=== PATIENT | female | born 1935 | race Caucasian/White ===

== ENCOUNTER 2018-07-29 09:44 | Emergency (ER) | payer OTHER, SELFPAY ==
--- NOTE | 2018-07-29 09:45 | ED.UPPEXIN ---
HPI - Extremity Injury (Upper) General Chief Complaint: Extremity Injury, Upper Stated Complaint: FELL, HURT ARM Time Seen by Provider: 07/29/18 09:45 Source: patient Mode of arrival: ambulatory Limitations: no limitations History of Present Illness HPI narrative: Patient is here for evaluation of right wrist and hand injury. Patient states that last evening she was getting out of the pool and tripped over some steps and fell forward catching herself with both hands out. She states that both her risk for hurting last evening but only her right wrist hurts this morning. Did not hit her head. Did have pain with movement of the right wrist while making breakfast this morning. Related Data Home Medications Medication Instructions Recorded Confirmed acetaminophen 325 mg PO PRN PRN #0 09/14/16 07/29/18 oxyquinoline-sod.lauryl sulfat 1 applic VAGINAL DIRECTED #0 02/26/17 07/29/18 [Trimo-De La Cruz Jelly] Calcium 1 dose PO QNOON 07/29/18 07/29/18 Vitamin D3 1 cap PO QNOON 07/29/18 07/29/18 multivitamin 1 tab PO QNOON 07/29/18 07/29/18 Allergies Allergy/AdvReac Type Severity Reaction Status Date / Time No Known Drug Allergies Allergy Verified 07/29/18 10:02 Review of Systems Constitutional Denies fever(s) and Denies headache(s) ENT Ears, Nose, Mouth, and Throat: Denies vertigo and Denies headache(s) Cardiovascular Denies chest pain and Denies dyspnea Respiratory Denies dyspnea Gastrointestinal Gastrointestinal: Denies abdominal pain, Denies nausea and Denies vomiting Musculoskeletal Denies myalgias and Reports arthralgias ( Right wrist) Integumentary/Breasts Denies pruritus and Denies rash Neurologic Denies vertigo and Denies headache(s) Hematologic/Lymphatic Denies easy bleeding and Denies easy bruising [facility] Medical History Healthy adult (Acute) Presence of pessary (Acute) Surgical History No pertinent past surgical history (Acute) Social History Smoking Status: Never smoker Exam Initial Vital Signs Initial Vital Signs: Vital Signs Temperature 97.8 F 07/29/18 09:59 Pulse Rate 64 07/29/18 09:59 Respiratory Rate 12 07/29/18 09:59 Blood Pressure 166/74 H 07/29/18 09:59 Pulse Oximetry 98 07/29/18 09:59 Const General: cooperative, healthy appearing, comfortable, well developed, well groomed and No acute distress Orientation: alert, awake and oriented x3 HENMT Head: normal to inspection and normocephalic Resp Effort & Inspection: normal respiratory effort Skin Lesions: no lesions Rashes: no rashes Neuro Sensory Exam: no sensory deficits noted Extrem Other: left upper extremity unremarkable right shoulder unremarkable right elbow unremarkable patient with some tenderness of the wrist with supination patient able to pronate without pain. Decreased flexion and extension secondary to pain at the right wrist right hand unremarkable No snuffbox tenderness right hand Psych Appearance: grossly normal and well kempt Course Orders Ordered: ED Orders 07/29/18 10:05 XR hand RT min 3V Stat XR wrist RT min 3V Stat Vital Signs - 8 hr 07/29/18 09:59 Temperature 97.8 F Pulse Rate 64 Respiratory Rate 12 Blood Pressure 166/74 H Pulse Oximetry 98 MDM - Extremity Injury (Upper) Imaging Data x-ray wrist: Radiologist's impression: PROCEDURE: XR WRIST RT MIN 3V INDICATIONS: fall on out stretched arm. pain in wrist and hand. TECHNIQUE: 4 views of the wrist were acquired. COMPARISON: [facility], RG, XR WRIST 3V RIGHT, 05/08/2003, 10:45. [facility], CR, XR HAND RT MIN 3V, 07/29/2018, 10:18. FINDINGS: Bones: Deformity seen of the distal radius. However, this is not significantly changed compared to thousand 3. No acute fractures are seen. Degenerative changes are seen throughout, which are most prominent involving the radial aspect of the carpus. Age-appropriate osteopenia is seen. Scaphoid view: No navicular fractures are seen. Soft tissues: No suspicious soft tissue calcifications. IMPRESSION: No acute fractures are seen. There is a remote distal radius fracture seen. If there is snuffbox tenderness (or other clinical suspicion for a fracture not seen on these images) then a repeat examination would be recommended in 10 to 14 days, following splinting. Dictated by: Jamil Patel M.D. on 07/29/2018 at 9:42 Approved by: Jamil Patel M.D. on 07/29/2018 at 9:43 x-ray hand: Radiologist's impression: PROCEDURE: XR HAND RT MIN 3V INDICATIONS: fall on out stretched arm, pain in wrist and hand. TECHNIQUE: 3 views of the hand(s) acquired. COMPARISON: [facility], CR, XR WRIST RT MIN 3V, 07/29/2018, 10:18. [facility], RG, XR WRIST 3V RIGHT, 05/08/2003, 10:45. FINDINGS: Bones: There is stable deformity of the distal radius seen, which is unchanged compared to 2002. No acute fractures or dislocations. Carpal bones are normally aligned. No suspicious bony lesions. Age-appropriate osteopenia and bony degenerative changes are seen. Soft tissues: No suspicious soft tissue calcifications. IMPRESSION: No acute fracture can be seen. Remote fracture of the distal radius. Osteopenia degenerative changes. Dictated by: Jamil Patel M.D. on 07/29/2018 at 9:43 Approved by: Jamil Patel M.D. on 07/29/2018 at 9:44 MDM Narrative Medical decision making narrative: patient is neurovascularly intact. no acute fracture seen on the x-ray per radiologist read. Discussed all this with the patient. Will send home with a removable wrist splint for comfort. Patient was given return precautions. She expressed understanding and agreement with plan. Discharge Plan Departure Patient Disposition: Home Clinical Impression: Right wrist sprain Instructions: DI for Wrist Sprain, How To Perform RICE (Rest, Ice, Compress, Elevate) Activity Restrictions/Additional Instructions: no fractures were seen on the x-rays today. You can use the wrist splint that she were given as needed for comfort. Call your primary care doctor for a follow-up. Return to the emergency department for any new or worsening symptoms Prescriptions: No Action acetaminophen 325 MG tablet 325 mg PO PRN PRN (Reason: pain) Qty: 0 RF: 0 oxyquinoline-sod.lauryl sulfat [Trimo-De La Cruz Jelly] 0.025-0.01 % Gel 1 applic Vaginal DIRECTED Qty: 0 RF: 0 multivitamin Tablet 1 tab PO QNOON RF: 0 Calcium 1 dose PO QNOON RF: 0 Vitamin D3 1 cap PO QNOON RF: 0
[2018-07-29 09:59] VITALS: BP 166/74; PULSE 64; RESP 12; TEMP 36.6; O2SAT 98; BMI 21.9
--- NOTE | 2018-07-29 10:05 | DI.RAD.S_ITS ---
PROCEDURE: XR HAND RT MIN 3V INDICATIONS: fall on out stretched arm, pain in wrist and hand. TECHNIQUE: 3 views of the hand(s) acquired. COMPARISON: [facility], CR, XR WRIST RT MIN 3V, 07/29/2018, 10:18. [facility], RG, XR WRIST 3V RIGHT, 05/08/2003, 10:45. FINDINGS: Bones: There is stable deformity of the distal radius seen, which is unchanged compared to 2002. No acute fractures or dislocations. Carpal bones are normally aligned. No suspicious bony lesions. Age-appropriate osteopenia and bony degenerative changes are seen. Soft tissues: No suspicious soft tissue calcifications. IMPRESSION: No acute fracture can be seen. Remote fracture of the distal radius. Osteopenia degenerative changes. Dictated by: Jamil Patel M.D. on 07/29/2018 at 9:43 Approved by: Jamil Patel M.D. on 07/29/2018 at 9:44
--- NOTE | 2018-07-29 10:05 | DI.RAD.S_ITS ---
PROCEDURE: XR WRIST RT MIN 3V INDICATIONS: fall on out stretched arm. pain in wrist and hand. TECHNIQUE: 4 views of the wrist were acquired. COMPARISON: [facility], RG, XR WRIST 3V RIGHT, 05/08/2003, 10:45. [facility], CR, XR HAND RT MIN 3V, 07/29/2018, 10:18. FINDINGS: Bones: Deformity seen of the distal radius. However, this is not significantly changed compared to thousand 3. No acute fractures are seen. Degenerative changes are seen throughout, which are most prominent involving the radial aspect of the carpus. Age-appropriate osteopenia is seen. Scaphoid view: No navicular fractures are seen. Soft tissues: No suspicious soft tissue calcifications. IMPRESSION: No acute fractures are seen. There is a remote distal radius fracture seen. If there is snuffbox tenderness (or other clinical suspicion for a fracture not seen on these images) then a repeat examination would be recommended in 10 to 14 days, following splinting. Dictated by: Jamil Patel M.D. on 07/29/2018 at 9:42 Approved by: Jamil Patel M.D. on 07/29/2018 at 9:43
[2018-07-29 11:40] VITALS: BP 175/76; PULSE 60; RESP 16; O2SAT 97
== END 2018-07-29 11:41 | disposition home or self-care (01) ==
PROVIDERS: Emergency Provider Emergency Medicine; PCP Internal Medicine
DX: S63.501A Unspecified sprain of right wrist, initial encounter (principal); W01.0XXA Fall on same level from slipping, tripping and stumbling without subsequent striking against object, initial encounter
CPT/HCPCS: 73110; 73130; 99282; 99283

== ENCOUNTER 2018-08-09 10:58 | Oncology outpatient (ONC) | payer OTHER, SELFPAY ==
[2018-08-09 11:58] VITALS: BP 148/69; PULSE 69; RESP 16; TEMP 36.8
[2018-08-09] MEDS: ZOLEDRONIC ACID 5 MG in SODIUM CHLORIDE 0.9% 100 ML 318.75 ML IV (12:00)
== END 2018-08-22 13:25 ==
LOC: ONC 10:58
PROVIDERS: PCP Internal Medicine; Visit Provider Internal Medicine
DX: M81.0 Age-related osteoporosis without current pathological fracture (principal)
CPT/HCPCS: 96374; J3489

== ENCOUNTER → 2019-01-31 13:43 | Outpatient (CLI) | payer OTHER, SELFPAY ==
--- NOTE | 2019-01-31 | DI.MG.S_ITS ---
BILATERAL DIGITAL SCREENING MAMMOGRAM 3D/2D WITH CAD: 01/31/2019 CLINICAL: Routine screening. Comparison is made to exams dated: 12/05/2017 mammogram, 06/17/2015 mammogram, and 09/10/2012 mammogram - [facility]. There are scattered fibroglandular elements in both breasts. Current study was also evaluated with a Computer Aided Detection (CAD) system. There is an asymmetry in the right breast anterior depth lateral region seen on the craniocaudal view only. No other significant masses, calcifications, or other findings are seen in either breast. IMPRESSION: INCOMPLETE: NEEDS ADDITIONAL IMAGING EVALUATION The asymmetry in the right breast is indeterminate. Additional views with possible ultrasound are recommended. This exam was interpreted at Station ID: [id number]. NOTE: For mammograms, a report in lay terms will be sent to the patient. Approximately 15% of breast malignancies will not be visualized mammographically. In the management of a palpable breast mass, a negative mammogram must not discourage biopsy of a clinically suspicious lesion. Electronically Signed By: Cony de/cindy:01/31/2019 16:28:09 letter sent: Additional Imaging Needed ACR BI-RADS Category 0: Incomplete 3340F
== END ==
PROVIDERS: PCP Internal Medicine; Visit Provider Internal Medicine
DX: Z12.31 Encounter for screening mammogram for malignant neoplasm of breast (principal)
CPT/HCPCS: 77063; 77067

== ENCOUNTER → 2019-02-17 08:49 | Outpatient (CLI) | payer OTHER, SELFPAY ==
--- NOTE | 2019-02-17 | DI.US.S_ITS ---
ULTRASOUND OF RIGHT BREAST: 02/17/2019 CLINICAL: Patient returns today to evaluate a focal asymmetry in the right breast. Comparison is made to exams dated: 02/17/2019 mammogram, 01/31/2019 mammogram, 12/05/2017 mammogram, 06/17/2015 mammogram, and 09/10/2012 mammogram - [facility]. Color flow ultrasound of the right breast was performed on the areas of interest. Rasmussen scale images of the real-time examination were reviewed. There is 0.4 cm cyst in the right breast at 10 o'clock middle depth. This cyst displays internal echoes. This likely correlates with mammography findings. IMPRESSION: PROBABLY BENIGN The 0.4 cm cyst in the right breast is consistent with a complicated cyst and is probably benign. A follow-up right mammogram and an ultrasound in 6 months is recommended to demonstrate stability. This exam was interpreted at Station ID: [id number]. Electronically Signed By: Cony de/:02/17/2019 10:08:18 letter sent: Followup Recommended Ultrasound BI-RADS: 3 Probably benign
--- NOTE | 2019-02-17 | DI.MG.S_ITS ---
UNILATERAL RIGHT DIGITAL DIAGNOSTIC MAMMOGRAM 3D/2D WITH ADDITIONAL VIEWS: 02/17/2019 CLINICAL: Additional evaluation requested from prior study. Comparison is made to exams dated: 01/31/2019 mammogram, 12/05/2017 mammogram, and 06/17/2015 mammogram - [facility]. There are scattered fibroglandular elements in right breast. There is an asymmetry in the right breast anterior depth lateral region seen on the craniocaudal view only. This is seen in additional views. No other significant masses or calcifications are seen in the breast. IMPRESSION: INCOMPLETE: NEEDS ADDITIONAL IMAGING EVALUATION The asymmetry in the right breast is indeterminate. A targeted ultrasound of the right breast is recommended and will be performed immediately following this exam. This exam was interpreted at Station ID: [id number]. NOTE: For mammograms, a report in lay terms will be sent to the patient. Approximately 15% of breast malignancies will not be visualized mammographically. In the management of a palpable breast mass, a negative mammogram must not discourage biopsy of a clinically suspicious lesion. Electronically Signed By: Cony Dean M.D. lk/:02/17/2019 10:06:48 ACR BI-RADS Category 0: Incomplete [id number]
== END ==
PROVIDERS: PCP Internal Medicine; Visit Provider Internal Medicine
DX: R92.8 Other abnormal and inconclusive findings on diagnostic imaging of breast (principal); N64.89 Other specified disorders of breast; N60.01 Solitary cyst of right breast
CPT/HCPCS: 76642; 77065; G0279

== ENCOUNTER → 2019-08-19 15:22 | Outpatient (CLI) | payer OTHER, SELFPAY ==
[2019-08-19 16:25] LABS: Blood Urea Nitrogen 16 mg/dL (7-17); Estimated Glomerular Filt Rate > 60.0 mL/min (>60)
== END ==
PROVIDERS: PCP Internal Medicine; Visit Provider Internal Medicine
DX: M81.0 Age-related osteoporosis without current pathological fracture (principal)
CPT/HCPCS: 36415; 82565; 84520

== ENCOUNTER → 2019-09-02 14:08 | Outpatient (CLI) | payer OTHER, SELFPAY ==
--- NOTE | 2019-09-02 | DI.MG.S_ITS ---
UNILATERAL RIGHT DIGITAL DIAGNOSTIC MAMMOGRAM 3D/2D SHORT-TERM FOLLOW-UP: 09/02/2019 CLINICAL: Short term follow up. Comparison is made to exams dated: 02/17/2019 mammogram, 01/31/2019 mammogram, 12/05/2017 mammogram, 02/17/2019 ultrasound, 09/10/2012 mammogram, and 06/17/2015 mammogram - [facility]. There are scattered fibroglandular elements in right breast. There is a stable asymmetry in the right breast anterior depth lateral region seen on the craniocaudal view only. No other significant masses or calcifications are seen in the breast. IMPRESSION: INCOMPLETE: NEEDS ADDITIONAL IMAGING EVALUATION Stable asymmetry in the right breast anterior depth lateral region. A targeted ultrasound of the right breast is recommended and will be performed immediately following this exam. This exam was interpreted at Station ID: [id number]. NOTE: For mammograms, a report in lay terms will be sent to the patient. Approximately 15% of breast malignancies will not be visualized mammographically. In the management of a palpable breast mass, a negative mammogram must not discourage biopsy of a clinically suspicious lesion. Electronically Signed By: Benji Cevallos M.D. slc/:09/02/2019 14:45:14 ACR BI-RADS Category 0: Incomplete [id number]
--- NOTE | 2019-09-02 | DI.US.S_ITS ---
LIMITED ULTRASOUND OF RIGHT BREAST: 09/02/2019 CLINICAL: 6 month follow-up of a complicated cyst in the right breast. Comparison is made to exams dated: 09/02/2019 mammogram, 02/17/2019 ultrasound, 02/17/2019 mammogram, 01/31/2019 mammogram, 12/05/2017 mammogram, and 06/17/2015 mammogram - [facility]. Color flow and real-time ultrasound of the right breast 9-10 o'clock region were performed. Rasmussen scale images of the real-time examination were reviewed. There is a stable 0.4 cm x 0.3 cm x 0.2 cm cyst in the right breast at 9:30 o'clock middle depth 3 cm from the nipple. This cyst is hypoechoic with internal echoes. This likely correlates with mammography findings. Color flow imaging demonstrates that there is no increase in vascularity. IMPRESSION: PROBABLY BENIGN Stable hypoechoic cyst in the right breast is consistent with a complicated cyst and is probably benign. Follow-up mammogram and ultrasound in 6 months is recommended to demonstrate stability. Exam findings were conveyed to the patient by the regional sales trainer. This exam was interpreted at Station ID: [id number]. Electronically Signed By: Benji Cevallos M.D. [facility] [place]/:09/02/2019 15:19:25 letter sent: Followup Recommended Ultrasound BI-RADS: 3 Probably benign
== END ==
PROVIDERS: PCP Internal Medicine; Visit Provider Internal Medicine
DX: R92.8 Other abnormal and inconclusive findings on diagnostic imaging of breast (principal); N60.01 Solitary cyst of right breast
CPT/HCPCS: 76642; 77065; G0279

== ENCOUNTER → 2019-09-08 14:05 | Oncology outpatient (ONC) | payer OTHER, SELFPAY ==
[2019-09-08 14:24] VITALS: BP 150/78; PULSE 80; RESP 20; TEMP 36.4; O2SAT 99
[2019-09-08] MEDS: ZOLEDRONIC ACID 5 MG in SODIUM CHLORIDE 0.9% 100 ML 318.75 ML IV (14:32)
== END ==
LOC: ONC 14:07
PROVIDERS: PCP Internal Medicine; Visit Provider Internal Medicine
DX: M81.0 Age-related osteoporosis without current pathological fracture (principal)
CPT/HCPCS: 96365; J3489

== ENCOUNTER → 2020-07-14 19:33 | Outpatient (ROUT) | payer MEDICARE, SELFPAY ==
[2020-07-14 19:57] LABS: BUN Creatinine Ratio 26.3 (6-22); Blood Urea Nitrogen 15 mg/dL (7-17); Calcium 9.5 mg/dL (8.4-10.2); Carbon Dioxide 33 mmol/L (22-32); Chloride 99 mmol/L (98-107); Cholesterol 252 mg/dL (140-199); Estimated Glomerular Filt Rate > 60.0 mL/min (>60); Glucose 97 mg/dL (80-110); HDL Cholesterol 92 mg/dL (40-60); HEMOLYSIS < 15 (0-50); LDL Cholesterol Calculated 135 mg/dL (<100); Potassium 4.2 mmol/L (3.4-5.1); Sodium 135 mmol/L (137-145); Triglycerides 126 mg/dL (35-150)
== END ==
PROVIDERS: PCP Internal Medicine; Visit Provider Internal Medicine
DX: I10 Essential (primary) hypertension (principal); E78.2 Mixed hyperlipidemia
CPT/HCPCS: 80048; 80061

== ENCOUNTER → 2020-08-04 13:44 | Outpatient (CLI) | payer MEDICARE, SELFPAY | PROVIDERS: PCP Internal Medicine; Referring Provider Internal Medicine; Visit Provider Internal Medicine | DX: M81.0 Age-related osteoporosis without current pathological fracture (principal); Z78.0 Asymptomatic menopausal state | CPT/HCPCS: 77080 ==

== ENCOUNTER → 2022-01-25 15:46 | Outpatient (CLI) | payer OTHER, SELFPAY ==
[2022-01-25 16:22] LABS: Appearance Urine UA CLEAR; Bilirubin Urine UA NEGATIVE (NEGATIVE); Color Urine UA YELLOW; Glucose Urine UA NEGATIVE (Negative); Ketones Urine UA NEGATIVE (NEGATIVE); Leukocyte Esterase Urine UA NEGATIVE (NEGATIVE); Nitrite Urine UA NEGATIVE (Negative); Occult Blood Urine UA NEGATIVE (Negative); Protein Urine UA NEGATIVE (Negative); Urobilinogen Urine UA 0.2 E.U./dL (0.2)
[2022-01-25 16:27] LABS: pH Urine UA 5.5 (4.5-8.0)
[2022-01-25 16:35] LABS: Bacteria Urine Occasional (0-1); Culture Indicated Urine Cult Not Indicated; RBC Urine None Seen (0-5/HPF); Squamous Epithelial Cell Urine 5-10 /HPF (0-5/HPF); WBC Urine 0-1/HPF (0-5/HPF)
== END ==
PROVIDERS: PCP Internal Medicine; Referring Provider Internal Medicine; Visit Provider Internal Medicine
DX: N81.4 Uterovaginal prolapse, unspecified (principal)
CPT/HCPCS: 81001

== ENCOUNTER 2022-06-03 17:05 | Emergency (ER) | payer MEDICARE, SELFPAY ==
[2022-06-03 17:19] VITALS: PULSE 64; RESP 20; TEMP 36.1; O2SAT 96; BMI 21.7
--- NOTE | 2022-06-03 18:39 | ED.FEMALEGU ---
HPI - Female Genitourinary General Chief complaint: Vaginal Bleeding Stated complaint: Vaginal bleeding Time Seen by Provider: 06/03/22 18:31 Source: family Mode of arrival: Ambulatory History of Present Illness HPI Narrative: Ms. Silver is a 87-year-old woman with severe dementia who is accompanied by her here to the emergency department today. He says that over the past couple of years she has been going to the bathroom much more frequently than expected. This has not resulted in any specific diagnosis. She used to use a pessary but has not now for many months. Today he noticed blood in the bathroom and he cannot tell whether this is rectal blood or urinary blood or vaginal blood. He says that when she sits on the toilet she strains as if she is trying to have a bowel movement. The patient herself has severe dementia and is unable to provide any helpful history. shows me a photograph of her perineum taken today. This shows a normal clitoral ge normal area of skin around the urethral meatus. The vaginal opening appears normal. The posterior aspect of the vaginal wall and perhaps part of the rectum seems slightly inflamed but it is hard to tell from the picture. Related Data Home Medications Medication Instructions Recorded Confirmed acetaminophen 325 mg tablet 325 mg PO PRN PRN pain ##0 09/14/16 04/27/22 multivitamin 1 tab PO QNOON 07/29/18 04/27/22 donepezil 10 mg tablet 10 mg PO DAILY 10/31/19 04/27/22 Previous Rx's Medication Instructions Recorded estradiol 0.01% (0.1 mg/gram) 1 g vaginal 3XW vaginal atrophy 02/17/21 vaginal cream #42.5 grams citalopram 20 mg tablet 20 mg PO DAILY #90 tabs 04/27/22 amlodipine 5 mg tablet 5 mg PO DAILY #90 tabs 05/26/22 Allergies Allergy/AdvReac Type Severity Reaction Status Date / Time No Known Drug Allergies Allergy Verified 06/03/22 17:28 Review of Systems Review of Systems Narrative: Review of systems is unobtainable in this profoundly demented woman. Patient History Medical History Alzheimer's dementia (~2014) Chicken pox Depression, recurrent Essential hypertension Fecal incontinence (~2020) Fractures (~1997) Healthy adult Hearing loss (~1950) History of urinary incontinence (~2007) Measles Osteoporosis (~2012) Pessary maintenance Presence of pessary Skin cancer (~2011) Surgical History No pertinent past surgical history Family History Father Pneumonia Brother Cancer Grandfather History of heart disease alcohol intake frequency: 0-2 drinks per day Substance Use Type: does not use Exam Narrative Exam Narrative: GENERAL: Alert, cooperative and in no distress. HEAD: Atraumatic. Normocephalic. EYES: Sclera are clear without icterus. Extraocular movements are full. ENT: No rhinorrhea. Oropharynx is moist. Mouth exam is benign. NECK: Supple. Full range of motion. CARDIOVASCULAR: Normal rate and rhythm without murmur gallop or rub. RESPIRATORY: Clear to auscultation. Breath sounds equal bilaterally. No wheezes, rales, or rhonchi. GASTROINTESTINAL: Abdomen soft, non-tender, nondistended. EXTREMITIES: No edema, full range of motion. No obvious trauma. BACK: Normal inspection, no CVA tenderness. NEURO: Nonfocal examination, normal speech, normal gait. SKIN: No rash or erythema of visible areas PSYCH: Completely disoriented. Needing constant reassurance. Profoundly demented. Initial Vital Signs Initial Vital Signs: Vital Signs Temperature 97 F L 06/03/22 17:19 Pulse Rate 64 06/03/22 17:19 Respiratory Rate 20 06/03/22 17:19 Pulse Oximetry 96 06/03/22 17:19 Oxygen Delivery Method 06/03/22 17:19 Course Orders Ordered: ED Orders 06/03/22 18:41 UA dip and micro [Urinalysis and Microscopic] Stat Vital Signs Vital signs: Vital Signs - 8 hr 06/03/22 17:19 Temperature 97 F L Pulse Rate 64 Respiratory Rate 20 Pulse Oximetry 96 Oxygen Delivery Method Room Air MDM - Female Genitourinary MDM Narrative Medical decision making narrative: The patient is profoundly demented and not completely assessed. In the lobby where I examined her she had a nontender abdomen and appeared well but extremely confused and demented. Her was constantly trying to redirect her and reassure her. They apparently left prior to being discharged. The plan had been to examine her perineum but this did not take place as they left prior to discharge. Discharge Plan Departure Patient Disposition: Left Against Medical Advice Clinical Impression: Female perineal bleeding Prescriptions: No Action acetaminophen 325 MG tablet 325 mg PO PRN PRN (Reason: pain) Qty: 0 amlodipine 5 mg tablet 5 mg PO DAILY Qty: 90 3RF citalopram 20 mg tablet 20 mg PO DAILY Qty: 90 3RF donepezil 10 mg tablet 10 mg PO DAILY estradiol 0.01 % (0.1 mg/gram) cream 1 g VAG 3XW Qty: 42.5 3RF Rx Instructions: Use 1-2x weekly or as often as tolerated multivitamin Tablet 1 tab PO QNOON Referrals: Rafael Flanagan MD [Primary Care Provider] - Stand Alone Forms: Against Medical Advice
== END 2022-06-03 19:07 | disposition left against medical advice (07) ==
PROVIDERS: Emergency Provider Family Medicine Addiction Medicine; PCP Internal Medicine
DX: N90.89 Other specified noninflammatory disorders of vulva and perineum (principal)
CPT/HCPCS: 99281

== ENCOUNTER 2022-11-12 15:54 | Emergency (ER) | payer MEDICARE, SELFPAY ==
[2022-11-12 16:27] VITALS: BP 128/90; PULSE 86; RESP 18; TEMP 36.4; O2SAT 96
[2022-11-12] MEDS: HALOPERIDOL 5 MG/ML VIAL IM (16:36)
--- NOTE | 2022-11-12 16:43 | PC.NURSE ---
Met patient in waiting room with family members, pt yelling and not following direction. Assisted pt with Katina RN to ambulate to Room 12. Pt bent over on stretcher and possible prolapse assessed outside of vaginal area. Large, pink, and moist. While pt was bent over she also had bowel movement onto floor, soft and light brown. Assisted pt with taj care and cleaned hands. Changed brief and assisted pt into gown. Pt eventually agrees to lay in stretcher, pt confused to place, date, and situation.
[2022-11-12 17:22] LABS: Add Manual Diff / Slide Review NO; Basophils Absolute Auto 0 /uL (0-100); Basophils Percent Auto 0.5 % (0-2); Eosinophils Absolute Auto 100 /uL (0-450); Eosinophils Percent Auto 0.8 % (2-4); Hematocrit 40.5 % (36-46); Hemoglobin 13.8 g/dL (12.0-16.0); Lymphocytes Absolute Auto 2700 /uL (1100-4500); Lymphocytes Percent Auto 31.7 % (25-40); Mean Corpuscular HGB Conc 34.1 % (30-36); Mean Corpuscular Hemoglobin 30.6 PG (26-34); Mean Corpuscular Volume 89.7 fL (80-100); Monocytes Absolute Auto 800 /uL (0-900); Monocytes Percent Auto 9.2 % (3-14); Neutrophils Absolute Auto 4900 /uL (1500-7000); Neutrophils Percent Auto 57.8 % (50-75); Platelet Count 245 X10^3/uL (150-400); Red Blood Cell Count 4.52 X10^6/uL (4.0-5.2); Red Cell Distribution Width 13.2 % (11.6-14.8); White Blood Cell Count 8.5 X10^3/uL (4.5-11.0)
[2022-11-12 17:42] LABS: Alanine Aminotransferase 22 IU/L (<35); Albumin 4.2 g/dL (3.5-5.0); Albumin Globulin Ratio 1.4 (1.0-2.8); Alkaline Phosphatase 84 U/L (38-126); Aspartate Aminotransferase 27 IU/L (14-36); Bilirubin Total 0.4 mg/dL (0.2-1.3); Blood Urea Nitrogen 21 mg/dL (7-17); Calcium 9.4 mg/dL (8.4-10.2); Carbon Dioxide 24 mmol/L (22-32); Chloride 105 mmol/L (98-107); Estimated Glomerular Filt Rate > 60 mL/min (>60); Globulin 3.1 g/dL (1.7-4.1); Glucose 142 mg/dL (80-110); HEMOLYSIS < 15 (0-50); Lactate (Lactic Acid) 1.5 mmol/L (0.7-2.1); Potassium 3.7 mmol/L (3.4-5.1); Sodium 138 mmol/L (137-145); Total Protein 7.3 g/dL (6.3-8.2)
[2022-11-12 17:46] VITALS: BP 167/92; RESP 16
--- NOTE | 2022-11-12 17:57 | PC.NURSE ---
Patient calmer than upon arrival, patient awake and nervous. Pt pulls away when nurse attempts vital signs, does not follow directions. Unable to obtain urine yet, Dr. Barrera aware.
[2022-11-12 17:58] LABS: Procalcitonin 0.05 ng/mL (<0.5)
--- NOTE | 2022-11-12 19:00 | ED_ITS ---
HPI - Female Genitourinary <Laura Bruce, - Last Filed: 11/15/22 19:49> General Chief complaint: Urogenital-Female Stated complaint: Prolapsed uterus Time Seen by Provider: 11/12/22 16:27 Mode of arrival: Ambulatory History of Present Illness HPI Narrative: Patient is 87-year-old female history Alzheimer's dementia, hypertension janiya gstanding uterine prolapse presenting today with behavior change. She lives at home with her elderly . Presenting today with irrational behavior. Both and daughter state that she is never acted like this before. She is screaming in the waiting room. She is constantly missing with her uterine prolapse. She frequently gets feces all over it. She does not have any fever. She was brought back to the room and immediately had a bowel movement and needed to be cleaned up. Previous PCP note from October 2022 appears as though there possibly interested in light memory Care. She was previously on quetiapine but it is maybe took her off of that. his trying to get her into long-term memory care however due to her increased irrational behavior he really is not able to take her home like this. This is abnormal behavior for her he is looking for help. Related Data Home Medications Medication Instructions Recorded Confirmed acetaminophen 325 mg tablet 325 mg PO PRN PRN pain ##0 09/14/16 11/03/22 multivitamin 1 tab PO QNOON 07/29/18 11/03/22 donepezil 10 mg tablet 10 mg PO DAILY 10/31/19 11/03/22 tobramycin-dexamethasone 0.3 %-0.1 ophthalmic (eye) TID 08/04/22 11/03/22 % eye ointment Previous Rx's Medication Instructions Recorded estradiol 0.01% (0.1 mg/gram) 1 g vaginal 3XW vaginal atrophy 02/17/21 vaginal cream #42.5 grams citalopram 20 mg tablet 20 mg PO DAILY #90 tabs 04/27/22 amlodipine 5 mg tablet 5 mg PO DAILY #90 tabs 05/26/22 quetiapine 50 mg tablet 50 mg PO BID #180 tabs 11/03/22 cephalexin 500 mg capsule 500 mg PO BID 7 days #14 caps 11/13/22 Allergies Allergy/AdvReac Type Severity Reaction Status Date / Time No Known Drug Allergies Allergy Verified 11/03/22 15:01 <Rory Rob DO - Last Filed: 11/13/22 19:03> Review of Systems ROS Unobtainable: Unobtainable due to mental status/LOC Patient History <Laura Barrera DO - Last Filed: 11/15/22 19:49> Medical History Alzheimer's dementia (~2014) Chicken pox Depression, recurrent Do not resuscitate Essential hypertension Fecal incontinence (~2020) Fractures (~1997) Healthy adult Hearing loss (~1949) History of urinary incontinence (~2007) Measles Medicare annual wellness visit, initial Osteoporosis (~2012) Pessary maintenance Presence of pessary Skin cancer (~2011) Surgical History No pertinent past surgical history Family History Father Pneumonia Brother Cancer Grandfather History of heart disease alcohol intake frequency: 0-2 drinks per day Substance Use Type: does not use Exam <Laura Barrera, DO - Last Filed: 11/15/22 19:49> Initial Vital Signs Initial Vital Signs: Vital Signs Temperature 97.5 F L 11/12/22 16:27 Pulse Rate 86 11/12/22 16:27 Respiratory Rate 18 11/12/22 16:27 Blood Pressure 128/90 11/12/22 16:27 Pulse Oximetry 96 11/12/22 16:27 Oxygen Delivery Method 11/12/22 16:27 GENERAL: Awake alert 87-year-old female now pleasant after Haldol HEENT: Head atraumatic,EOMI, pupils reactive, face symmetric, CARDIOVASCULAR: Regular rate and rhythm without murmurs, rubs or gallops. RESPIRATORY: Breath sounds equal bilaterally, no wheezes rales or rhonchi. EXTREMITIES: Normal range of motion, no clubbing or edema. Neurovascularly intact NEUROLOGICAL: Moves all extremities SKIN: Warm, dry, no laceration, no petechiae, no rashes or lesions. <Rory Rob, DO - Last Filed: 11/13/22 19:03> Initial Vital Signs Initial Vital Signs: Vital Signs Temperature 97.5 F L 11/12/22 16:27 Pulse Rate 86 11/12/22 16:27 Respiratory Rate 18 11/12/22 16:27 Blood Pressure 128/90 11/12/22 16:27 Pulse Oximetry 96 11/12/22 16:27 Oxygen Delivery Method 11/12/22 16:27 <Saba Patiño DO - Last Filed: 11/13/22 19:19> Initial Vital Signs Initial Vital Signs: Vital Signs Temperature 97.5 F L 11/12/22 16:27 Pulse Rate 86 11/12/22 16:27 Respiratory Rate 18 11/12/22 16:27 Blood Pressure 128/90 11/12/22 16:27 Pulse Oximetry 96 11/12/22 16:27 Oxygen Delivery Method 11/12/22 16:27 Course <Laura Barrera, DO - Last Filed: 11/15/22 19:49> Orders Ordered: Discontinued Medications Acetaminophen (Acetaminophen 325 Mg Tablet) 325 mg PO Q6H PRN PRN Reason: Fever/Mild Pain (1-3) Acetaminophen (Acetaminophen 325 Mg Tablet) 650 mg PO NOW ONE Stop: 11/13/22 19:16 Last Admin: 11/13/22 19:19 Dose: 650 mg Documented By: MADDIE Amlodipine Besylate (Amlodipine 5 Mg Tablet) 5 mg PO DAILY [facility] Last Admin: 11/13/22 08:55 Dose: Not Given Documented By: HUE Haloperidol (Haloperidol 5 Mg/Ml Vial) 5 mg IM NOW ONE Stop: 11/12/22 16:30 Last Admin: 11/12/22 16:36 Dose: 5 mg Documented By: LUCI Ceftriaxone Sodium 1,000 mg/ (Sodium Chloride) 100 mls @ 200 mls/hr IV NOW ONE Stop: 11/13/22 05:56 Last Infusion: 11/13/22 07:31 Dose: 0 mls/hr Documented By: Admin: 11/13/22 07:00 Dose: 200 mls/hr Documented By: BS Ceftriaxone Sodium 1,000 mg/ (Sodium Chloride) 100 mls @ 200 mls/hr IV DAILY [facility] Last Infusion: 11/13/22 18:14 Dose: 0 mls/hr Documented By: Admin: 11/13/22 17:20 Dose: 200 mls/hr Documented By: MADDIE Sodium Chloride (Normal Saline 0.9%) 1,000 mls @ 125 mls/hr IV BOLUS ONE Stop: 11/13/22 19:05 Last Infusion: 11/13/22 18:56 Dose: 0 mls/hr Documented By: Admin: 11/13/22 11:21 Dose: 125 mls/hr Documented By: HUE Quetiapine Fumarate (Quetiapine 25 Mg Tablet) 50 mg PO BID [facility] Last Admin: 11/13/22 08:55 Dose: Not Given Documented By: HUE Vital Signs Vital signs: Vital Signs - 8 hr 11/13/22 12:02 11/13/22 18:54 11/13/22 18:54 Temperature 98.0 F Pulse Rate 107 H Respiratory Rate 16 Blood Pressure 164/74 H Pulse Oximetry 95 <Rory Rob, DO - Last Filed: 11/13/22 19:03> Orders Ordered: Discontinued Medications Acetaminophen (Acetaminophen 325 Mg Tablet) 325 mg PO Q6H PRN PRN Reason: Fever/Mild Pain (1-3) Acetaminophen (Acetaminophen 325 Mg Tablet) 650 mg PO NOW ONE Stop: 11/13/22 19:16 Last Admin: 11/13/22 19:19 Dose: 650 mg Documented By: MADDIE Amlodipine Besylate (Amlodipine 5 Mg Tablet) 5 mg PO DAILY [facility] Last Admin: 11/13/22 08:55 Dose: Not Given Documented By: HUE Haloperidol (Haloperidol 5 Mg/Ml Vial) 5 mg IM NOW ONE Stop: 11/12/22 16:30 Last Admin: 11/12/22 16:36 Dose: 5 mg Documented By: LUCI Ceftriaxone Sodium 1,000 mg/ (Sodium Chloride) 100 mls @ 200 mls/hr IV NOW ONE Stop: 11/13/22 05:56 Last Infusion: 11/13/22 07:31 Dose: 0 mls/hr Documented By: Admin: 11/13/22 07:00 Dose: 200 mls/hr Documented By: TITUS Ceftriaxone Sodium 1,000 mg/ (Sodium Chloride) 100 mls @ 200 mls/hr IV DAILY [facility] Last Infusion: 11/13/22 18:14 Dose: 0 mls/hr Documented By: Admin: 11/13/22 17:20 Dose: 200 mls/hr Documented By: MADDIE Sodium Chloride (Normal Saline 0.9%) 1,000 mls @ 125 mls/hr IV BOLUS ONE Stop: 11/13/22 19:05 Last Infusion: 11/13/22 18:56 Dose: 0 mls/hr Documented By: Admin: 11/13/22 11:21 Dose: 125 mls/hr Documented By: HUE Quetiapine Fumarate (Quetiapine 25 Mg Tablet) 50 mg PO BID [facility] Last Admin: 11/13/22 08:55 Dose: Not Given Documented By: HUE Vital Signs Vital signs: Vital Signs - 8 hr 11/13/22 12:02 11/13/22 18:54 11/13/22 18:54 Temperature 98.0 F Pulse Rate 107 H Respiratory Rate 16 Blood Pressure 164/74 H Pulse Oximetry 95 <Saba Patiño, DO - Last Filed: 11/13/22 19:19> Orders Ordered: Discontinued Medications Acetaminophen (Acetaminophen 325 Mg Tablet) 325 mg PO Q6H PRN PRN Reason: Fever/Mild Pain (1-3) Acetaminophen (Acetaminophen 325 Mg Tablet) 650 mg PO NOW ONE Stop: 11/13/22 19:16 Last Admin: 11/13/22 19:19 Dose: 650 mg Documented By: MADDIE Amlodipine Besylate (Amlodipine 5 Mg Tablet) 5 mg PO DAILY [facility] Last Admin: 11/13/22 08:55 Dose: Not Given Documented By: HUE Haloperidol (Haloperidol 5 Mg/Ml Vial) 5 mg IM NOW ONE Stop: 11/12/22 16:30 Last Admin: 11/12/22 16:36 Dose: 5 mg Documented By: LUCI Ceftriaxone Sodium 1,000 mg/ (Sodium Chloride) 100 mls @ 200 mls/hr IV NOW ONE Stop: 11/13/22 05:56 Last Infusion: 11/13/22 07:31 Dose: 0 mls/hr Documented By: Admin: 11/13/22 07:00 Dose: 200 mls/hr Documented By: TITUS Ceftriaxone Sodium 1,000 mg/ (Sodium Chloride) 100 mls @ 200 mls/hr IV DAILY [facility] Last Infusion: 11/13/22 18:14 Dose: 0 mls/hr Documented By: Admin: 11/13/22 17:20 Dose: 200 mls/hr Documented By: MADDIE Sodium Chloride (Normal Saline 0.9%) 1,000 mls @ 125 mls/hr IV BOLUS ONE Stop: 11/13/22 19:05 Last Infusion: 11/13/22 18:56 Dose: 0 mls/hr Documented By: Admin: 11/13/22 11:21 Dose: 125 mls/hr Documented By: HUE Quetiapine Fumarate (Quetiapine 25 Mg Tablet) 50 mg PO BID [facility] Last Admin: 11/13/22 08:55 Dose: Not Given Documented By: HUE Vital Signs Vital signs: Vital Signs - 8 hr 11/13/22 12:02 11/13/22 18:54 11/13/22 18:54 Temperature 98.0 F Pulse Rate 107 H Respiratory Rate 16 Blood Pressure 164/74 H Pulse Oximetry 95 MDM - Female Genitourinary <Laura Barrera DO - Last Filed: 11/15/22 19:49> Lab Data 11/12/22 17:10 11/12/22 17:10 Labs: Lab Results 11/12/22 11/12/22 11/12/22 Range/Units 17:10 17:10 17:10 WBC 8.5 (4.5-11.0) X10^3/uL RBC 4.52 (4.0-5.2) X10^6/uL Hgb 13.8 (12.0-16.0) g/dL Hct 40.5 (36-46) % MCV 89.7 (80-100) fL MCH 30.6 (26-34) PG MCHC 34.1 (30-36) % RDW 13.2 (11.6-14.8) % Plt Count 245 (150-400) X10^3/uL Neut % (Auto) 57.8 (50-75) % Lymph % (Auto) 31.7 (25-40) % [place] % (Auto) 9.2 (3-14) % Eos % (Auto) 0.8 L (2-4) % Baso % (Auto) 0.5 (0-2) % Neut # (Auto) 4900 (5154-2952) /uL Lymph # (Auto) 2700 (6359-4846) /uL [place] # (Auto) 800 (0-900) /uL Eos # (Auto) 100 (0-450) /uL Baso # (Auto) 0 (0-100) /uL Sodium 138 (137-145) mmol/L Potassium 3.7 (3.4-5.1) mmol/L Chloride 105 (98-107) mmol/L Carbon Dioxide 24 (22-32) mmol/L BUN 21 H (7-17) mg/dL Creatinine 0.60 (0.52-1.04) mg/dL Estimated GFR > 60 (>60) mL/min BUN/Creatinine Ratio 35.0 H (6-22) Glucose 142 H (80-110) mg/dL Lactate 1.5 (0.7-2.1) mmol/L Calcium 9.4 (8.4-10.2) mg/dL Total Bilirubin 0.4 (0.2-1.3) mg/dL AST 27 (14-36) IU/L ALT 22 (<35) IU/L Alkaline Phosphatase 84 (38-126) U/L Total Protein 7.3 (6.3-8.2) g/dL Albumin 4.2 (3.5-5.0) g/dL Globulin 3.1 (1.7-4.1) g/dL Albumin/Globulin Ratio 1.4 (1.0-2.8) Procalcitonin 0.05 (<0.5) ng/mL Urine Color Urine Appearance Urine pH (4.5-8.0) Ur Specific [place] (1.000-1.035) Urine Protein (Negative) Urine Glucose (UA) (Negative) g/dL Urine Ketones (NEGATIVE) Urine Occult Blood (Negative) Urine Nitrate (Negative) Urine Bilirubin (NEGATIVE) Urine Urobilinogen (0.2) E.U./dL Ur Leukocyte Esterase (NEGATIVE) Urine RBC (0-5/HPF) Urine WBC (0-5/HPF) Ur Squamous Epith Cells (0-5/HPF) Urine Bacteria (None) Ur Culture Indicated? 11/13/22 11/13/22 11/13/22 Range/Units 03:55 06:39 06:39 WBC 6.4 (4.5-11.0) X10^3/uL RBC 4.20 (4.0-5.2) X10^6/uL Hgb 12.6 (12.0-16.0) g/dL Hct 38.4 (36-46) % MCV 91.3 (80-100) fL MCH 29.9 (26-34) PG MCHC 32.8 (30-36) % RDW 13.2 (11.6-14.8) % Plt Count 233 (150-400) X10^3/uL Neut % (Auto) 53.9 (50-75) % Lymph % (Auto) 32.5 (25-40) % [place] % (Auto) 12.0 (3-14) % Eos % (Auto) 1.4 L (2-4) % Baso % (Auto) 0.2 (0-2) % Neut # (Auto) 3400 (5092-9959) /uL Lymph # (Auto) 2100 (5204-6782) /uL [place] # (Auto) 800 (0-900) /uL Eos # (Auto) 100 (0-450) /uL Baso # (Auto) 0 (0-100) /uL Sodium 139 (137-145) mmol/L Potassium 3.9 (3.4-5.1) mmol/L Chloride 104 (98-107) mmol/L Carbon Dioxide 29 (22-32) mmol/L BUN 18 H (7-17) mg/dL Creatinine 0.49 L (0.52-1.04) mg/dL Estimated GFR > 60 (>60) mL/min BUN/Creatinine Ratio 36.7 H (6-22) Glucose 93 (80-110) mg/dL Lactate (0.7-2.1) mmol/L Calcium 8.5 (8.4-10.2) mg/dL Total Bilirubin 0.7 (0.2-1.3) mg/dL AST 44 H (14-36) IU/L ALT 23 (<35) IU/L Alkaline Phosphatase 64 (38-126) U/L Total Protein 6.3 (6.3-8.2) g/dL Albumin 3.6 (3.5-5.0) g/dL Globulin 2.7 (1.7-4.1) g/dL Albumin/Globulin Ratio 1.3 (1.0-2.8) Procalcitonin (<0.5) ng/mL Urine Color Yellow Urine Appearance Slightly cloudy Urine pH 6.0 (4.5-8.0) Ur Specific [place] >=1.030 H (1.000-1.035) Urine Protein Trace H (Negative) Urine Glucose (UA) Negative (Negative) g/dL Urine Ketones Trace H (NEGATIVE) Urine Occult Blood 1+ H (Negative) Urine Nitrate Positive H (Negative) Urine Bilirubin Negative (NEGATIVE) Urine Urobilinogen 0.2 (0.2) E.U./dL Ur Leukocyte Esterase 1+ H (NEGATIVE) Urine RBC 0-1/hpf (0-5/HPF) Urine WBC 10-30/hpf H (0-5/HPF) Ur Squamous Epith Cells 1-5 /hpf (0-5/HPF) Urine Bacteria Many (>30) H (None) Ur Culture Indicated? Specimen cultured MDM Narrative Medical decision making narrative: 87-year-old female history of Alzheimer's dementia presenting today with worsening behavior. We do need a urinalysis still however he does not have any signs of acute sepsis. It is possible that still UTI is causing some of her increased behavior changes. They are looking into [facility] memory care and further help. Awaiting social work evaluation Signed out to Dr. Rob <Rory Rob DO - Last Filed: 11/13/22 19:03> Lab Data Labs: Lab Results 11/12/22 11/12/22 11/12/22 Range/Units 17:10 17:10 17:10 WBC 8.5 (4.5-11.0) X10^3/uL RBC 4.52 (4.0-5.2) X10^6/uL Hgb 13.8 (12.0-16.0) g/dL Hct 40.5 (36-46) % MCV 89.7 (80-100) fL MCH 30.6 (26-34) PG MCHC 34.1 (30-36) % RDW 13.2 (11.6-14.8) % Plt Count 245 (150-400) X10^3/uL Neut % (Auto) 57.8 (50-75) % Lymph % (Auto) 31.7 (25-40) % [place] % (Auto) 9.2 (3-14) % Eos % (Auto) 0.8 L (2-4) % Baso % (Auto) 0.5 (0-2) % Neut # (Auto) 4900 (6363-2504) /uL Lymph # (Auto) 2700 (9431-0403) /uL [place] # (Auto) 800 (0-900) /uL Eos # (Auto) 100 (0-450) /uL Baso # (Auto) 0 (0-100) /uL Sodium 138 (137-145) mmol/L Potassium 3.7 (3.4-5.1) mmol/L Chloride 105 (98-107) mmol/L Carbon Dioxide 24 (22-32) mmol/L BUN 21 H (7-17) mg/dL Creatinine 0.60 (0.52-1.04) mg/dL Estimated GFR > 60 (>60) mL/min BUN/Creatinine Ratio 35.0 H (6-22) Glucose 142 H (80-110) mg/dL Lactate 1.5 (0.7-2.1) mmol/L Calcium 9.4 (8.4-10.2) mg/dL Total Bilirubin 0.4 (0.2-1.3) mg/dL AST 27 (14-36) IU/L ALT 22 (<35) IU/L Alkaline Phosphatase 84 (38-126) U/L Total Protein 7.3 (6.3-8.2) g/dL Albumin 4.2 (3.5-5.0) g/dL Globulin 3.1 (1.7-4.1) g/dL Albumin/Globulin Ratio 1.4 (1.0-2.8) Procalcitonin 0.05 (<0.5) ng/mL Urine Color Urine Appearance Urine pH (4.5-8.0) Ur Specific [place] (1.000-1.035) Urine Protein (Negative) Urine Glucose (UA) (Negative) g/dL Urine Ketones (NEGATIVE) Urine Occult Blood (Negative) Urine Nitrate (Negative) Urine Bilirubin (NEGATIVE) Urine Urobilinogen (0.2) E.U./dL Ur Leukocyte Esterase (NEGATIVE) Urine RBC (0-5/HPF) Urine WBC (0-5/HPF) Ur Squamous Epith Cells (0-5/HPF) Urine Bacteria (None) Ur Culture Indicated? 11/13/22 11/13/22 11/13/22 Range/Units 03:55 06:39 06:39 WBC 6.4 (4.5-11.0) X10^3/uL RBC 4.20 (4.0-5.2) X10^6/uL Hgb 12.6 (12.0-16.0) g/dL Hct 38.4 (36-46) % MCV 91.3 (80-100) fL MCH 29.9 (26-34) PG MCHC 32.8 (30-36) % RDW 13.2 (11.6-14.8) % Plt Count 233 (150-400) X10^3/uL Neut % (Auto) 53.9 (50-75) % Lymph % (Auto) 32.5 (25-40) % [place] % (Auto) 12.0 (3-14) % Eos % (Auto) 1.4 L (2-4) % Baso % (Auto) 0.2 (0-2) % Neut # (Auto) 3400 (5917-6167) /uL Lymph # (Auto) 2100 (6059-2114) /uL [place] # (Auto) 800 (0-900) /uL Eos # (Auto) 100 (0-450) /uL Baso # (Auto) 0 (0-100) /uL Sodium 139 (137-145) mmol/L Potassium 3.9 (3.4-5.1) mmol/L Chloride 104 (98-107) mmol/L Carbon Dioxide 29 (22-32) mmol/L BUN 18 H (7-17) mg/dL Creatinine 0.49 L (0.52-1.04) mg/dL Estimated GFR > 60 (>60) mL/min BUN/Creatinine Ratio 36.7 H (6-22) Glucose 93 (80-110) mg/dL Lactate (0.7-2.1) mmol/L Calcium 8.5 (8.4-10.2) mg/dL Total Bilirubin 0.7 (0.2-1.3) mg/dL AST 44 H (14-36) IU/L ALT 23 (<35) IU/L Alkaline Phosphatase 64 (38-126) U/L Total Protein 6.3 (6.3-8.2) g/dL Albumin 3.6 (3.5-5.0) g/dL Globulin 2.7 (1.7-4.1) g/dL Albumin/Globulin Ratio 1.3 (1.0-2.8) Procalcitonin (<0.5) ng/mL Urine Color Yellow Urine Appearance Slightly cloudy Urine pH 6.0 (4.5-8.0) Ur Specific [place] >=1.030 H (1.000-1.035) Urine Protein Trace H (Negative) Urine Glucose (UA) Negative (Negative) g/dL Urine Ketones Trace H (NEGATIVE) Urine Occult Blood 1+ H (Negative) Urine Nitrate Positive H (Negative) Urine Bilirubin Negative (NEGATIVE) Urine Urobilinogen 0.2 (0.2) E.U./dL Ur Leukocyte Esterase 1+ H (NEGATIVE) Urine RBC 0-1/hpf (0-5/HPF) Urine WBC 10-30/hpf H (0-5/HPF) Ur Squamous Epith Cells 1-5 /hpf (0-5/HPF) Urine Bacteria Many (>30) H (None) Ur Culture Indicated? Specimen cultured MDM Narrative Medical decision making narrative: 87-year-old female history of Alzheimer's dementia presenting today with worsening behavior. We do need a urinalysis still however he does not have any signs of acute sepsis. It is possible that still UTI is causing some of her increased behavior changes. They are looking into [facility] memory care and further help. Awaiting social work evaluation Signed out to Dr. Rob [[id number]] (Darron) Patient received in sign out from [Bruce]. I have reviewed the clinical course and performed an independent history and physical exam. There is no clear evidence of diagnosis requiring hospitalization, however she is clearly departed from her baseline and would benefit from social work evaluation <Saba Patiño, DO - Last Filed: 11/13/22 19:19> Lab Data Labs: Lab Results 11/12/22 11/12/22 11/12/22 Range/Units 17:10 17:10 17:10 WBC 8.5 (4.5-11.0) X10^3/uL RBC 4.52 (4.0-5.2) X10^6/uL Hgb 13.8 (12.0-16.0) g/dL Hct 40.5 (36-46) % MCV 89.7 (80-100) fL MCH 30.6 (26-34) PG MCHC 34.1 (30-36) % RDW 13.2 (11.6-14.8) % Plt Count 245 (150-400) X10^3/uL Neut % (Auto) 57.8 (50-75) % Lymph % (Auto) 31.7 (25-40) % [place] % (Auto) 9.2 (3-14) % Eos % (Auto) 0.8 L (2-4) % Baso % (Auto) 0.5 (0-2) % Neut # (Auto) 4900 (7886-8970) /uL Lymph # (Auto) 2700 (5636-5186) /uL [place] # (Auto) 800 (0-900) /uL Eos # (Auto) 100 (0-450) /uL Baso # (Auto) 0 (0-100) /uL Sodium 138 (137-145) mmol/L Potassium 3.7 (3.4-5.1) mmol/L Chloride 105 (98-107) mmol/L Carbon Dioxide 24 (22-32) mmol/L BUN 21 H (7-17) mg/dL Creatinine 0.60 (0.52-1.04) mg/dL Estimated GFR > 60 (>60) mL/min BUN/Creatinine Ratio 35.0 H (6-22) Glucose 142 H (80-110) mg/dL Lactate 1.5 (0.7-2.1) mmol/L Calcium 9.4 (8.4-10.2) mg/dL Total Bilirubin 0.4 (0.2-1.3) mg/dL AST 27 (14-36) IU/L ALT 22 (<35) IU/L Alkaline Phosphatase 84 (38-126) U/L Total Protein 7.3 (6.3-8.2) g/dL Albumin 4.2 (3.5-5.0) g/dL Globulin 3.1 (1.7-4.1) g/dL Albumin/Globulin Ratio 1.4 (1.0-2.8) Procalcitonin 0.05 (<0.5) ng/mL Urine Color Urine Appearance Urine pH (4.5-8.0) Ur Specific [place] (1.000-1.035) Urine Protein (Negative) Urine Glucose (UA) (Negative) g/dL Urine Ketones (NEGATIVE) Urine Occult Blood (Negative) Urine Nitrate (Negative) Urine Bilirubin (NEGATIVE) Urine Urobilinogen (0.2) E.U./dL Ur Leukocyte Esterase (NEGATIVE) Urine RBC (0-5/HPF) Urine WBC (0-5/HPF) Ur Squamous Epith Cells (0-5/HPF) Urine Bacteria (None) Ur Culture Indicated? 11/13/22 11/13/22 11/13/22 Range/Units 03:55 06:39 06:39 WBC 6.4 (4.5-11.0) X10^3/uL RBC 4.20 (4.0-5.2) X10^6/uL Hgb 12.6 (12.0-16.0) g/dL Hct 38.4 (36-46) % MCV 91.3 (80-100) fL MCH 29.9 (26-34) PG MCHC 32.8 (30-36) % RDW 13.2 (11.6-14.8) % Plt Count 233 (150-400) X10^3/uL Neut % (Auto) 53.9 (50-75) % Lymph % (Auto) 32.5 (25-40) % [place] % (Auto) 12.0 (3-14) % Eos % (Auto) 1.4 L (2-4) % Baso % (Auto) 0.2 (0-2) % Neut # (Auto) 3400 (8898-2073) /uL Lymph # (Auto) 2100 (4348-6376) /uL [place] # (Auto) 800 (0-900) /uL Eos # (Auto) 100 (0-450) /uL Baso # (Auto) 0 (0-100) /uL Sodium 139 (137-145) mmol/L Potassium 3.9 (3.4-5.1) mmol/L Chloride 104 (98-107) mmol/L Carbon Dioxide 29 (22-32) mmol/L BUN 18 H (7-17) mg/dL Creatinine 0.49 L (0.52-1.04) mg/dL Estimated GFR > 60 (>60) mL/min BUN/Creatinine Ratio 36.7 H (6-22) Glucose 93 (80-110) mg/dL Lactate (0.7-2.1) mmol/L Calcium 8.5 (8.4-10.2) mg/dL Total Bilirubin 0.7 (0.2-1.3) mg/dL AST 44 H (14-36) IU/L ALT 23 (<35) IU/L Alkaline Phosphatase 64 (38-126) U/L Total Protein 6.3 (6.3-8.2) g/dL Albumin 3.6 (3.5-5.0) g/dL Globulin 2.7 (1.7-4.1) g/dL Albumin/Globulin Ratio 1.3 (1.0-2.8) Procalcitonin (<0.5) ng/mL Urine Color Yellow Urine Appearance Slightly cloudy Urine pH 6.0 (4.5-8.0) Ur Specific [place] >=1.030 H (1.000-1.035) Urine Protein Trace H (Negative) Urine Glucose (UA) Negative (Negative) g/dL Urine Ketones Trace H (NEGATIVE) Urine Occult Blood 1+ H (Negative) Urine Nitrate Positive H (Negative) Urine Bilirubin Negative (NEGATIVE) Urine Urobilinogen 0.2 (0.2) E.U./dL Ur Leukocyte Esterase 1+ H (NEGATIVE) Urine RBC 0-1/hpf (0-5/HPF) Urine WBC 10-30/hpf H (0-5/HPF) Ur Squamous Epith Cells 1-5 /hpf (0-5/HPF) Urine Bacteria Many (>30) H (None) Ur Culture Indicated? Specimen cultured MDM Narrative Medical decision making narrative: 87-year-old female history of Alzheimer's dementia presenting today with worsening behavior. We do need a urinalysis still however he does not have any signs of acute sepsis. It is possible that still UTI is causing some of her increased behavior changes. They are looking into [facility] memory care and further help. Awaiting social work evaluation Signed out to Dr. Rob [[id number]] (Darron) Patient received in sign out from [Bruce]. I have reviewed the clinical course and performed an independent history and physical exam. There is no clear evidence of diagnosis requiring hospitalization, however she is clearly departed from her baseline and would benefit from social work evaluation 11/13/22 Mank: Patient signed out to myself. Patient has history of Alzheimer's dementia with worsening behavior does have a UA that shows signs of infection, does not appear toxic. Did receive Rocephin 1 g, patient had received 1 dose of Haldol the day before with no additional medications, ordered daily medications including Rocephin daily. Patient has daily labs ordered. Urine and blood cultures are pending without any results so far. Patient sounds like has significant baseline dementia would likely benefit from placement in a memory care type facility and sounds like patient's family has been seeking this. STOCK[employer]ER involved. 1530: Met with patient's and daughter they note that patient's behavior changed significantly in the last 24 hours. Patient was otherwise doing fairly well they are unclear about why patient was started on Seroquel discussed if she was having behavioral issues they seem fairly adamant did not they thought Dr. Flanagan had just started it but unclear why. We discussed UA, lab findings that she is giving some IV antibiotics they note that patient has uterine prolapse they had not met with Gynecology about pessary but notes she would probably require sedation to have [address] Daley who is on for OBGYN states that she would be happy to have the office reach out to the patient's family to set up pessary sizing and placement under sedation. A shared this with the patient's family as well. Spoke with Dr. Flanagan, patient's primary care provider. He met with the patient's and daughter today. Discussed that they do not wish to continue the Seroquel they are concerned that it maybe contributing to her symptoms. We discussed that likely UTI is part of the issue currently. We will continue to hold Seroquel, discussed Dr. Daley's willingness to follow with the patient in terms of her prolapse but is not actively prolapsed while seated in the bed. Patient's mentation sounds like has been slowly improving here in the department. And that family is in the process of seeking placement and social work's been looking but no forward movem ent at this time. 1840: Discussed with patient family discussed continuing to monitor overnight see her mentation is in the morning. They state there has been some mild improvement but not back to her usual baseline. At this time they feel comfortable returning home with her we did offer to continue to watch her overnight but family ultimately decided to take her home. Have set up to try to have follow-up with Dr. Daley for telemarketing sales representative have pessary placed under procedural sedation. Plan is to stop Seroquel continue patient's regular donepezil, citalopram and amlodipine and will continue with oral antibiotic. She does not have to fill this until tomorrow she is had a dose of IV Rocephin this evening. Discharge Plan Departure Patient Disposition: Home Clinical Impression: Prolapse of female pelvic organs, Acute UTI, Altered mental status Instructions: DI for Urinary Tract Infection (UTI) Activity Restrictions/Additional Instructions: Follow up with your physician for recheck, I would also discussed with them about home health care to see if this is an option that would be helpful. You can reach out to Dr. Daley's office, she is with telemarketing sales representative I spoke with your today. They will try to reach out to the next day or 2 to set up outpatient follow-up for possible procedural sedation for pessary placement for prolapse. If you have not heard from them you can call the contact information below. As discussed continue your donepezil, citalopram and amlodipine daily. Stop the Seroquel or quetiapine. Continue oral antibiotics until completely gone. Prescription sent to [facility] in [place]. Please return for fevers, worsening changes, if you feel Tonia is unsafe cores going to harm yourself or others, abdominal pain, persistent vomiting, difficulty breathing, vaginal or rectal bleeding or other new or concerning changes. Prescriptions: New cephalexin 500 mg capsule 500 mg PO BID 7 Days Qty: 14 0RF No Action acetaminophen 325 MG tablet 325 mg PO PRN PRN (Reason: pain) Qty: 0 amlodipine 5 mg tablet 5 mg PO DAILY Qty: 90 3RF citalopram 20 mg tablet 20 mg PO DAILY Qty: 90 3RF quetiapine 50 mg tablet 50 mg PO BID Qty: 180 3RF donepezil 10 mg tablet 10 mg PO DAILY estradiol 0.01 % (0.1 mg/gram) cream 1 g VAG 3XW Qty: 42.5 3RF Rx Instructions: Use 1-2x weekly or as often as tolerated tobramycin-dexamethasone 0.3-0.1 % ointment ophthalmic (eye) TID multivitamin Tablet 1 tab PO QNOON Referrals: Gi Daley MD [Physician] - Rafael Flanagan MD [Primary Care Provider] - Stand Alone Forms: Patient Portal/API
--- NOTE | 2022-11-12 19:11 | PC.NURSE ---
x2 staff assisted pt to ambulate to bathroom, pt denies need to urinate.
[2022-11-12 21:01] VITALS: BP 157/82; PULSE 66; RESP 18
--- NOTE | 2022-11-12 23:41 | PC.NURSE ---
Addendum entered by Nilam Skinner CNA 11/13/22 04:10: FLOOR COVERINGS INSTALLER note: Patient began to wake up and move in bed. I asked in a quiet tone do you need to go to the bathroom? Patient said yes. Patient is a one person to the [facility] [place] with lots of cueing. Patient is wearing a pull up. Patient requires assistance to pull down her pull up brief. Patient voided 300 mL of latasha/dark yellow urine. Got patient back into bed. Sent urine specimen to the lab. Addendum entered by Nilam Skinner CNA 11/13/22 02:41: FLOOR COVERINGS INSTALLER note: Patient talking in her sleep. She is speaking in an upbeat tone in her sleep. Sleeping on back, occasional snore. Addendum entered by Nilam Skinner CNA 11/13/22 01:19: FLOOR COVERINGS INSTALLER note: Patient resting. Addendum entered by Nilam Skinner CNA 11/13/22 00:12: FLOOR COVERINGS INSTALLER note: Patient resting in bed. Noticed she was mumbling and grabbing for her legs. She kept repeating this is too much. I'm sorry it's too much. I took her blanket off. She was holding her calves. Took off her shoes and lowered her knees down. Raised head of bed. Patient is resting with eyes closed. Original Note: AJ note: Patient in bed. Patient is cooperative in care. Patient is looking up at the ceiling.
[2022-11-13 04:12] LABS: Bilirubin Urine UA NEGATIVE (NEGATIVE); Color Urine UA YELLOW; Glucose Urine UA NEGATIVE (Negative); Ketones Urine UA TRACE (NEGATIVE); Leukocyte Esterase Urine UA 1+ (NEGATIVE); Nitrite Urine UA POSITIVE (Negative); Occult Blood Urine UA 1+ (Negative); Protein Urine UA TRACE (Negative); Specific Gravity Urine UA >=1.030 (1.000-1.035); Urobilinogen Urine UA 0.2 E.U./dL (0.2)
[2022-11-13 04:19] LABS: Appearance Urine UA Slightly Cloudy
[2022-11-13 04:23] LABS: Bacteria Urine Many (>30); Culture Indicated Urine Specimen Cultured; RBC Urine 0-1/HPF (0-5/HPF); Squamous Epithelial Cell Urine 1-5 /HPF (0-5/HPF); WBC Urine 10-30/HPF (0-5/HPF)
[2022-11-13] MEDS: cefTRIAXone 1,000 MG in SODIUM CHLORIDE 0.9% 100 ML 200 MG IV ×2 (07:00→17:20)
[2022-11-13 07:04] VITALS: BP 140/79; PULSE 76; RESP 16; TEMP 36.9; O2SAT 94
[2022-11-13 07:16] LABS: Add Manual Diff / Slide Review NO; Basophils Absolute Auto 0 /uL (0-100); Basophils Percent Auto 0.2 % (0-2); Eosinophils Absolute Auto 100 /uL (0-450); Eosinophils Percent Auto 1.4 % (2-4); Hematocrit 38.4 % (36-46); Hemoglobin 12.6 g/dL (12.0-16.0); Lymphocytes Absolute Auto 2100 /uL (1100-4500); Lymphocytes Percent Auto 32.5 % (25-40); Mean Corpuscular HGB Conc 32.8 % (30-36); Mean Corpuscular Hemoglobin 29.9 PG (26-34); Mean Corpuscular Volume 91.3 fL (80-100); Monocytes Absolute Auto 800 /uL (0-900); Neutrophils Absolute Auto 3400 /uL (1500-7000); Neutrophils Percent Auto 53.9 % (50-75); Platelet Count 233 X10^3/uL (150-400); Red Cell Distribution Width 13.2 % (11.6-14.8); White Blood Cell Count 6.4 X10^3/uL (4.5-11.0)
[2022-11-13 07:21] LABS: Alanine Aminotransferase 23 IU/L (<35); Albumin 3.6 g/dL (3.5-5.0); Albumin Globulin Ratio 1.3 (1.0-2.8); Alkaline Phosphatase 64 U/L (38-126); Aspartate Aminotransferase 44 IU/L (14-36); BUN Creatinine Ratio 36.7 (6-22); Bilirubin Total 0.7 mg/dL (0.2-1.3); Blood Urea Nitrogen 18 mg/dL (7-17); Calcium 8.5 mg/dL (8.4-10.2); Carbon Dioxide 29 mmol/L (22-32); Chloride 104 mmol/L (98-107); Estimated Glomerular Filt Rate > 60 mL/min (>60); Globulin 2.7 g/dL (1.7-4.1); Glucose 93 mg/dL (80-110); HEMOLYSIS < 15 (0-50); Potassium 3.9 mmol/L (3.4-5.1); Sodium 139 mmol/L (137-145); Total Protein 6.3 g/dL (6.3-8.2)
[2022-11-13 08:33] VITALS: O2SAT 95
--- NOTE | 2022-11-13 10:37 | PC.NURSE ---
Encouraging PO intake, pt continues to decline water and food. Pt refusing to take morning medication. Dr. Patiño updated. Attempted to get pt up to the commode, but pt refusing to sit on commode. Re-orienting pt frequently. , Danny updated.
--- NOTE | 2022-11-13 10:45 | PC.NURSE ---
Me and another FIG BAR MACHINE OPERATOR assisted patient to stand at bedside to try and sit on the commode and see if patient needed to be changed. Patient was able to stand, but refused to sit on the commode and did not want a fresh brief. Patients current brief was dry. We assisted patient back into bed.
[2022-11-13] MEDS: SODIUM CHLORIDE 0.9% 1,000 ML 125 ML IV (11:21)
[2022-11-13 12:02] VITALS: RESP 16; TEMP 36.7
--- NOTE | 2022-11-13 12:12 | PC.NURSE ---
Patient has refused food from myself and the nurse. Patient's is here now and has been able to feed patient a few scoops of apple sauce.
--- NOTE | 2022-11-13 16:32 | CM.SWNOTE ---
ED DCP Note Patient is 87 y/o female who presents to ED due to concern for prolapsed uterus and family's concern for patient's AMS, & agitated change in behavior. It is reported that patient had PCP appt with Dr. Flanagan on 11/03/22 and patient was prescribed new rx of quetiapine 50 mg. Patient's PCP is Dr. Flanagan, patient has Medicare and [employer] [facility] medic[facility] insurance. Patient has hx of hearing loss, Alzheimer's Dementia, Prolapse of female pelvic organs. Per EMR patient is DNR status. Patient presents as asleep, per RN, patient is A/Ox0. Present in room is patient's spouse Danny and daughter Michelle. It is reported that patient resides with spouse in [place] and patient's daughter lives far away and is visiting until 11/25/22. Family endorses need for patient's Pessary. With patient's family permission, EMAIL OPERATIONS MANAGER calls PCP office and informs office of patient's presentation in ED and request for OBGYN f/u for Pessary. Spouse reports that patient has a caregiver 2 hours a day for two days a week and spouse has list of caregivers and is trying to find more to allow for daily caregivers. It is reported that patient can ambulate independently and often needs to go to the bathroom every 10-15 minutes. Family reports concern for patient's new behaviors of shaking and agitation in the last 24 hours. It is reported that patient has Alzheimer's at baseline but is able to engage in conversation and communicate her needs. Spouse endorses he is looking into enrolling patient into [facility] memory care. EMAIL OPERATIONS MANAGER discusses options of memory care vs. home with more supports and caregivers. At this time patient is considering what the best option is. Plan: Patient is diagnosed with UTI and is receiving antibiotics. Patient's medical clearance pending ED provider eval and consulting with PCP. Plan likely will be patient to d/c to home upon medical clearance with family. Patient to f/u with OBGYN for referral f/u. EMAIL OPERATIONS MANAGER to f/u with DCP needs, EMAIL OPERATIONS MANAGER to provide senior resource guide. Eva Moreira, INSPECTOR POISING
[2022-11-13 18:54] VITALS: BP 164/74; PULSE 107; O2SAT 95
[2022-11-13] MEDS: ACETAMINOPHEN 325 MG TABLET 650 MG PO (19:19)
== END 2022-11-13 19:21 | disposition home or self-care (01) ==
PROVIDERS: Emergency Medicine; Emergency Provider Emergency Medicine; PCP Internal Medicine
DX: N81.9 Female genital prolapse, unspecified (principal); N39.0 Urinary tract infection, site not specified; R41.82 Altered mental status, unspecified
CPT/HCPCS: 36415; 80053; 81001; 83605; 84145; 85025; 87040; 87077; 87086; 87186; 96361; 96365; 96366; 96372; 99284; J0696; J1630

== ENCOUNTER 2022-11-17 09:20 | Day surgery (SDC) | payer MEDICARE, SELFPAY ==
[2022-11-16 12:02] VITALS: BMI 22.1
[2022-11-17 09:55] VITALS: BP 127/76; PULSE 64; RESP 14; TEMP 36.7; O2SAT 97; BMI 22.1
--- NOTE | 2022-11-17 11:46 | PM.HP.1 ---
History of Present Illness History of Present Illness Date Patient Seen: 11/17/22 Time Patient Seen: 10:45 Chief complaint: PELVIC Narrative: Patient is an 87-year-old with uterine prolapse. She is here for pessary placement. This was unable to be done in an outpatient setting due to the patient's dementia and combativeness. Patient History Medical History (Updated 11/16/22 @ 15:44 by Rafael Flanagan MD) Age-related osteoporosis without current pathological fracture Alzheimer's dementia (~2014) Chicken pox Depression, recurrent Do not resuscitate Essential hypertension Fecal incontinence (~2020) Fractures (~1997) Healthy adult Hearing loss (~1949) History of urinary incontinence (~2007) Measles Pessary maintenance Presence of pessary Skin cancer (~2011) Surgical History No pertinent past surgical history Family & Social History Family History Father Pneumonia Brother Cancer Grandfather History of heart disease Social History: household members spouse Tobacco & Substance use: Smoking Status Never smoker alcohol intake current alcohol intake frequency holiday/special occasion Substance Use Type does not use Meds Home Medications and Allergies Home Medications Medication Instructions Recorded Confirmed Type acetaminophen 325 mg tablet 325 mg PO PRN PRN pain ##0 09/14/16 11/17/22 History multivitamin 1 tab PO QNOON 07/29/18 11/17/22 History donepezil 10 mg tablet 10 mg PO DAILY 10/31/19 11/17/22 History estradiol 0.01% (0.1 mg/gram) 1 g vaginal 3XW vaginal atrophy 02/17/21 11/16/22 Rx vaginal cream #42.5 grams citalopram 20 mg tablet 20 mg PO DAILY #90 tabs 04/27/22 11/17/22 Rx amlodipine 5 mg tablet 5 mg PO DAILY #90 tabs 05/26/22 11/17/22 Rx tobramycin-dexamethasone 0.3 %-0.1 ophthalmic (eye) TID 08/04/22 11/16/22 History % eye ointment amoxicillin 500 mg tablet 500 mg PO TID #21 tabs 11/16/22 11/16/22 Rx Allergies Allergy/AdvReac Type Severity Reaction Status Date / Time haloperidol AdvReac Intermediate agitation Verified 11/16/22 15:29 quetiapine AdvReac Intermediate confusion, Verified 11/16/22 15:07 agitation capsules AdvReac Intermediate unable to Uncoded 11/16/22 15:26 take capsules Exam Vital Signs (past 8 hours): - 11/17/22 09:55 Temperature 98.1 F Pulse Rate 64 Respiratory Rate 14 Blood Pressure 127/76 Pulse Oximetry 97 Oxygen Delivery Method Room Air Oxygen Delivery Method Room Air Narrative Exam Narrative: HEENT: No thyromegaly, no anterior cervical or supraclavicular lymphadenopathy. Lungs:Clear to auscultation bilaterally, no wheezes. Cardiovascular: Regular rate and rhythm, no murmurs, rubs, or gallops. Abdomen: No scars. No hepatosplenomegaly. No masses palpable. External genitalia: Normal Vagina: Third-degree uterine prolapse Cervix: Out of the vagina Bimanual exam: 5 Week size prolapsed uterus. Mobile. Extremities: No edema Assessment & Plan Assessment & Plan narrative: Assessment: 87-year-old with third-degree uterine prolapse Unable to place pessary in an outpatient setting due to patient's dementia and combativeness Plan: Pessary placement under sedation The risks, benefits, and alternatives to the procedure were explained to the patient's and daughter. The risks are minimal. Consent form was signed. Time Spent With Patient Time with patient: less than 30 minutes Critical Care time: I spent a total of [] minutes of critical care time on this patient's care today; this time is exclusive of procedural time.
--- NOTE | 2022-11-17 11:48 | PM.PREOP ---
Pre-operative Note COVID-19 Criteria for continued procedure: Deterioration of the patient's condition or overall health Interval Note History & Physical reviewed/Exam performed by Physician: Yes Changes to H&P: No H&P completed within 30 days and has changed as indicated here:: 11/17/22
--- NOTE | 2022-11-17 12:12 | SUR.OPER ---
patient kept on padded stretcher bed, warm blankets placed. Pillow under head, arms across torso. no prep per Dr. Daley.
[2022-11-17 12:16] VITALS: BP 110/52; PULSE 61; RESP 13; TEMP 36.6; O2SAT 96
--- NOTE | 2022-11-17 12:16 | P.OP_ITS ---
Operative Date/Time/Diagnoses Date of procedure: 11/17/22 Time of procedure: 12:16 Pre-op diagnosis: Uterine prolapse Unable to place pessary in an outpatient setting due to patient's dementia Post-op diagnosis: same Procedure & Clinicians Procedure: Procedures Operation Date: 11/17/22 10:45 Actual Procedure Side Surgeon p Pessary Insertion Not Applicable Gi Daley MD Indications: Uterine prolapse Unable to place pessary in an outpatient setting due to patient's dementia Surgeon: Gi Daley Anesthesia Type: Sedation Operative Notes Findings: Third-degree uterine prolapse Oliver of the vagina without ulceration or irritation Closure Type: not applicable Specimen(s): none Estimated blood loss (mL): 0 Blood products transfused: none Procedure in detail: Informed consent was obtained from the patient's [id number] for healthcare which is her . She was taken to the operating room where she was left on the gurney. IV sedation was administered. The patient was frog- legged on the gurney. The # 4 ring with support pessary (which was brought in by the family), was placed without difficulty. The patient tolerated this well. She was taken to recovery in stable condition. Complications: none Post-operative Condition: stable Disposition: PACU Plan for aftercare: Home after recovery
[2022-11-17 12:21] VITALS: BP 114/56; PULSE 65; RESP 12; O2SAT 96
[2022-11-17 12:26] VITALS: BP 125/61; PULSE 61; RESP 11; O2SAT 97
[2022-11-17 12:30] VITALS: BP 131/65; PULSE 68; RESP 14; TEMP 36; O2SAT 97
[2022-11-17 12:32] VITALS: BP 125/63; PULSE 72; O2SAT 97
--- NOTE | 2022-11-17 12:56 | SUR.PHASEII ---
Patient grew angry and upset during IV removal. Family present. She was reassured as able and she did calm quickly. Dressed with assistance.
== END 2022-11-17 12:44 | disposition home or self-care (01) ==
PROVIDERS: PCP Internal Medicine; Referring Provider Obstetrics & Gynecology; Visit Provider Obstetrics & Gynecology
PROC: (CPT 57160; principal; 2022-11-17 10:45)
DX: N81.3 Complete uterovaginal prolapse (principal); F03.911 Unspecified dementia, unspecified severity, with agitation
CPT/HCPCS: 57160; J2704

== ENCOUNTER → 2022-12-22 12:05 | Outpatient (CLI) | payer MEDICARE, SELFPAY ==
[2022-12-26 15:57] LABS: C difficie Toxins A and B, EIA Negative (Negative)
== END ==
PROVIDERS: PCP Internal Medicine; Referring Provider Internal Medicine; Visit Provider Internal Medicine
DX: R15.9 Full incontinence of feces (principal)
CPT/HCPCS: 87324

== ENCOUNTER → 2023-02-01 14:24 | Outpatient (ROUT) | payer MEDICARE, SELFPAY ==
[2023-02-01 15:51] LABS: Adenovirus F 40/41 Not Detected (Not Detect); Astrovirus Not Detected (Not Detect); Campylobacter Not Detected (Not Detect); Clostridium difficile toxin AB Not Detected (Not Detect); Cryptosporidium Not Detected (Not Detect); Cyclospora cayetanensis Not Detected (Not Detect); Entamoeba histolytica Not Detected (Not Detect); Enteroaggregative E.coli Not Detected (Not Detect); Enteropathogenic E.coli Not Detected (Not Detect); Enterotoxigenic E.coli It/st Not Detected (Not Detect); Giardia lamblia Not Detected (Not Detect); Norovirus GI/GII Not Detected (Not Detect); Plesiomonsa shigelloides Not Detected (Not Detect); Rotavirus A Not Detected (Not Detect); Salmonella Not Detected (Not Detect); Sapovirus Not Detected (Not Detect); Shiga-like toxin-prod E.coli Not Detected (Not Detect); Shigella/Enteroinvasive E.coli Not Detected (Not Detect); Vibrio Not Detected (Not Detect); Vibrio cholerae Not Detected (Not Detect); Yersinia enterocolitica Not Detected (Not Detect)
== END ==
PROVIDERS: PCP Internal Medicine; Visit Provider Nurse Practitioner Family
DX: R19.7 Diarrhea, unspecified (principal)
CPT/HCPCS: 87507

== ENCOUNTER → 2023-02-20 12:04 | Outpatient (CLI) | payer MEDICARE, SELFPAY ==
[2023-02-20 13:01] LABS: Add Manual Diff / Slide Review NO; Basophils Absolute Auto 0 /uL (0-100); Basophils Percent Auto 0.4 % (0-2); Eosinophils Absolute Auto 100 /uL (0-450); Eosinophils Percent Auto 1.8 % (2-4); Hematocrit 37.1 % (36-46); Hemoglobin 12.4 g/dL (12.0-16.0); Lymphocytes Absolute Auto 1800 /uL (1100-4500); Lymphocytes Percent Auto 27.5 % (25-40); Mean Corpuscular HGB Conc 33.4 % (30-36); Monocytes Absolute Auto 500 /uL (0-900); Monocytes Percent Auto 7.3 % (3-14); Neutrophils Absolute Auto 4100 /uL (1500-7000); Platelet Count 297 X10^3/uL (150-400); Red Blood Cell Count 4.13 X10^6/uL (4.0-5.2); Red Cell Distribution Width 13.1 % (11.6-14.8); White Blood Cell Count 6.6 X10^3/uL (4.5-11.0)
[2023-02-20 13:41] LABS: Alanine Aminotransferase 20 IU/L (<35); Albumin 3.7 g/dL (3.5-5.0); Albumin Globulin Ratio 1.4 (1.0-2.8); Alkaline Phosphatase 75 U/L (38-126); Aspartate Aminotransferase 22 IU/L (14-36); BUN Creatinine Ratio 35.6 (6-22); Bilirubin Total 0.3 mg/dL (0.2-1.3); Blood Urea Nitrogen 21 mg/dL (7-17); Calcium 9.1 mg/dL (8.4-10.2); Carbon Dioxide 31 mmol/L (22-32); Chloride 101 mmol/L (98-107); Estimated Glomerular Filt Rate > 60 mL/min (>60); Globulin 2.7 g/dL (1.7-4.1); Glucose 96 mg/dL (80-110); HEMOLYSIS < 15 (0-50); Potassium 4.3 mmol/L (3.4-5.1); Sodium 137 mmol/L (137-145); Total Protein 6.4 g/dL (6.3-8.2)
[2023-02-20 14:07] LABS: Thyroid Stimulating Hormone 1.54 uIU/mL (0.47-4.68)
[2023-02-20 14:22] LABS: Vitamin B12 490 pg/mL (239-931)
== END ==
PROVIDERS: PCP Nurse Practitioner Family; Referring Provider Nurse Practitioner Family; Visit Provider Nurse Practitioner Family
DX: F03.90 Unspecified dementia, unspecified severity, without behavioral disturbance, psychotic disturbance, mood disturbance, and anxiety (principal); R19.7 Diarrhea, unspecified; I10 Essential (primary) hypertension
CPT/HCPCS: 36415; 80053; 82607; 84443; 85025

== ENCOUNTER → 2023-03-19 15:23 | Outpatient (ROUT) | payer MEDICARE, SELFPAY ==
[2023-03-19 15:30] LABS: Appearance Urine UA CLOUDY; Bilirubin Urine UA NEGATIVE (NEGATIVE); Color Urine UA YELLOW; Glucose Urine UA NEGATIVE (Negative); Ketones Urine UA NEGATIVE (NEGATIVE); Leukocyte Esterase Urine UA 3+ (NEGATIVE); Nitrite Urine UA NEGATIVE (Negative); Occult Blood Urine UA NEGATIVE (Negative); Protein Urine UA TRACE (Negative); Urobilinogen Urine UA 0.2 E.U./dL (0.2)
[2023-03-19 16:32] LABS: Bacteria Urine Few (2-10); Culture Indicated Urine Specimen Cultured; RBC Urine 0-1/HPF (0-5/HPF); Squamous Epithelial Cell Urine 0-1 /HPF (0-5/HPF); Transitional Epi Cells Urine 1-5/HPF (0-5/HPF); WBC Urine >100/HPF (0-5/HPF)
== END ==
PROVIDERS: PCP Nurse Practitioner Family; Visit Provider Nurse Practitioner Family
DX: R82.998 Other abnormal findings in urine (principal); R53.83 Other fatigue; R41.0 Disorientation, unspecified
CPT/HCPCS: 81001; 87077; 87086; 87186

== ENCOUNTER → 2023-04-26 12:58 | Outpatient (ROUT) | payer MEDICARE, SELFPAY ==
[2023-04-26 13:13] LABS: Appearance Urine UA SL CLOUDY; Bilirubin Urine UA NEGATIVE (NEGATIVE); Color Urine UA YELLOW; Glucose Urine UA NEGATIVE (Negative); Ketones Urine UA NEGATIVE (NEGATIVE); Leukocyte Esterase Urine UA 2+ (NEGATIVE); Nitrite Urine UA NEGATIVE (Negative); Occult Blood Urine UA NEGATIVE (Negative); Protein Urine UA NEGATIVE (Negative); Urobilinogen Urine UA 0.2 E.U./dL (0.2)
[2023-04-26 13:44] LABS: Bacteria Urine Occasional (0-1); Culture Indicated Urine Specimen Cultured; Other Crystals Urine Moderate Amorphous; RBC Urine None Seen (0-5/HPF); Squamous Epithelial Cell Urine None Seen (0-5/HPF); WBC Urine 10-30/HPF (0-5/HPF); pH Urine UA 8.5 (4.5-8.0)
== END ==
PROVIDERS: Visit Provider Nurse Practitioner Family
DX: R30.0 Dysuria (principal); R82.90 Unspecified abnormal findings in urine; R45.1 Restlessness and agitation
CPT/HCPCS: 81001; 87086

== ENCOUNTER 2023-05-17 08:09 | Day surgery (SDC) | payer MEDICARE, SELFPAY ==
--- NOTE | 2023-05-17 07:53 | P.HPOB_ITS ---
History of Present Illness History of Present Illness Reason for admission: other (Remove, clean, and replace pessary) Narrative: Tonia Ariza is a 88 year old female with dementia, who presents for a pessary removal, cleaning, and replacement. Patient has dementia and is in a care facility. She would not allow me to check pessary in the office. [facility] Medical History (Updated 05/14/23 @ 12:07 by Gi Daley MD) Age-related osteoporosis without current pathological fracture Alzheimer's dementia (~2014) Chicken pox Depression, recurrent Do not resuscitate Essential hypertension Fecal incontinence (~2020) Fractures (~1997) Healthy adult Hearing loss (~1949) History of urinary incontinence (~2007) Insomnia Measles Pessary maintenance Presence of pessary Skin cancer (~2011) Surgical History (System 04/27/23 @ 12:38 by Chivo Hobson) No pertinent past surgical history Family History Father Pneumonia Brother Cancer Grandfather History of heart disease Social History (System 04/27/23 @ 12:38 by Chivo Hobson) household members: spouse Smoking Status: Never smoker alcohol intake: current Meds Home Medications and Allergies Home Medications Medication Instructions Recorded Confirmed Type acetaminophen 325 mg tablet 325 mg PO PRN PRN pain ##0 09/14/16 05/17/23 History multivitamin 1 tab PO QNOON 07/29/18 04/24/23 History donepezil 10 mg tablet 10 mg PO DAILY 10/31/19 05/17/23 History estradiol 0.01% (0.1 mg/gram) 1 g vaginal 3XW vaginal atrophy 02/17/21 04/24/23 Rx vaginal cream #42.5 grams amlodipine 5 mg tablet 5 mg PO DAILY #90 tabs 05/26/22 05/17/23 Rx tobramycin-dexamethasone 0.3 %-0.1 ophthalmic (eye) TID 08/04/22 04/24/23 History % eye ointment amoxicillin 500 mg tablet 500 mg PO TID #21 tabs 11/16/22 05/17/23 Rx Disabled Parking Permit 1 ea Not Applicable DAILY #1 ea 11/17/22 04/24/23 Rx trazodone 50 mg tablet 25 mg PO BEDTIME PRN sleep #60 tabs 12/08/22 05/17/23 Rx Allergies Allergy/AdvReac Type Severity Reaction Status Date / Time haloperidol AdvReac Intermediate agitation Verified 05/17/23 08:43 quetiapine AdvReac Intermediate confusion, Verified 05/17/23 08:43 agitation capsules AdvReac Intermediate unable to Uncoded 05/17/23 08:43 take capsules Exam Narrative Exam Narrative: Generally: A frail elderly female, no acute distress HEENT: No thyromegaly, no anterior cervical or supraclavicular lymphadenopathy. Lungs:Clear to auscultation bilaterally, no wheezes. Cardiovascular: Regular rate and rhythm, no murmurs, rubs, or gallops. Abdomen: No scars. No hepatosplenomegaly. No masses palpable. External genitalia: Deferred Vagina: Deferred Cervix: Deferred Bimanual exam: Deferred Extremities: No edema Assessment & Plan Assessment & Plan narrative: Assessment: 88 year old with pelvic relaxation, using a pessary Unable to examine, remove and clean in office due to dementia Plan: Remove, clean and replace pessary The risks, benefits, and alternatives to the procedure were explained to the . The risks are minimal. He understands and agrees to proceed. Time Spent With Patient Time with patient: less than 30 minutes
[2023-05-17 08:29] VITALS: BP 114/69; PULSE 57; RESP 16; TEMP 36.3; O2SAT 98; BMI 20.9
[2023-05-17] MEDS: LACTATED RINGERS 1,000 ML 100 ML IV (09:18)
--- NOTE | 2023-05-17 09:38 | PM.PREOP ---
Pre-operative Note COVID-19 Criteria for continued procedure: Deterioration of the patient's condition or overall health Interval Note History & Physical reviewed/Exam performed by Physician: Yes Changes to H&P: No H&P completed within 30 days and has changed as indicated here:: 05/17/23
--- NOTE | 2023-05-17 10:03 | SUR.OPER ---
Lithotomy on padded OR bed, head on pillow, arms secured on padded arm boards at <90 degrees abduction. Legs secured in padded yellow fins stirrups.
[2023-05-17 10:04] VITALS: BP 106/63; PULSE 56; RESP 12; TEMP 36.7; O2SAT 97
--- NOTE | 2023-05-17 10:09 | PM.GYNOP.1 ---
Operative Date/Time/Diagnoses Date of procedure: 05/17/23 Time of procedure: 10:09 Pre-op diagnosis: Pessary in place Severe dementia, not able to examined in the office Post-op diagnosis: same Procedure & Clinicians Procedure: Procedures Operation Date: 05/17/23 09:30 Actual Procedure Side Surgeon p Pessary removal, cleaning & replacement Gi Daley MD Indications: Pessary in place Severe dementia Unable to remove pessary in the office Surgeon: Gi Daley Anesthesia Type: Sedation Operative Notes Findings: #4 ring with support pessary in place No ulcerations or irritation of the vaginal granados Closure Type: not applicable Specimen(s): none Estimated blood loss (mL): 0 Blood products transfused: none Procedure in detail: Informed consent was obtained from the patient's and power of family law attorney for healthcare. The patient was taken to the operating room where she was placed in the dorsal supine position. After adequate sedation was achieved, she was placed in the dorsal lithotomy position. A time-out was performed. The # 4 ring pessary with support was removed and cleaned. The vagina was inspected and there were no ulcerations or irritation. The # 4 ring with support was replaced. The patient tolerated the procedure well and was taken to PACU in stable condition. Complications: none Post-operative Condition: stable Disposition: PACU Plan for aftercare: Home after recovery
[2023-05-17 10:10] VITALS: BP 114/63; PULSE 57; RESP 13; TEMP 36.4; O2SAT 99
== END 2023-05-17 10:38 | disposition home or self-care (01) ==
PROVIDERS: PCP Nurse Practitioner Family; Referring Provider Obstetrics & Gynecology; Visit Provider Obstetrics & Gynecology
PROC: (CPT 57410; principal; 2023-05-17 09:30)
DX: Z46.6 Encounter for fitting and adjustment of urinary device (principal); N81.89 Other female genital prolapse; F03.90 Unspecified dementia, unspecified severity, without behavioral disturbance, psychotic disturbance, mood disturbance, and anxiety
CPT/HCPCS: 57160; J1885; J2704

== ENCOUNTER → 2023-06-01 16:15 | Outpatient (CLI) | payer MEDICARE, SELFPAY ==
--- NOTE | 2023-06-01 | DI.RAD.S_ITS ---
PROCEDURE: XR KNEE LT 1TO2V INDICATIONS: PAIN IN KNEE TECHNIQUE: 3 views of the knee were acquired. COMPARISON: [facility], CR, KNEE 3V LEFT, 05/24/2015, 14:05. [facility], CR, KNEE 3V RIGHT, 03/17/2008, 9:22. MR, KNEE WITH CONTRAST, 06/22/2017, 14:39. CR, KNEE SERIES RT, 05/08/2017, 12:10. FINDINGS: Bones: No fractures or dislocations. No suspicious bony lesions. Moderate narrowing of the medial femoral tibial joint and mild tricompartmental periarticular osteophyte formation. Soft tissues: Moderate joint effusion. No suspicious soft tissue calcifications. IMPRESSION: Mild tricompartmental knee joint degeneration, most notably involving the medial femorotibial joint. Dictated by: Chad ROSAS Interpreted: Arturo Pedro MD on 06/01/2023 at 16:53 Transcribed by: JUAN RAMON on 06/01/2023 at 16:54 Approved by: Arturo Pedro M.D. on 06/01/2023 at 17:04
== END ==
PROVIDERS: PCP Nurse Practitioner Family; Referring Provider Nurse Practitioner Family; Visit Provider Nurse Practitioner Family
DX: M25.462 Effusion, left knee (principal); M17.12 Unilateral primary osteoarthritis, left knee
CPT/HCPCS: 73560

== ENCOUNTER → 2023-09-27 18:14 | Outpatient (ROUT) | payer MEDICARE, SELFPAY ==
[2023-09-27 19:01] LABS: Appearance Urine UA CLOUDY; Bilirubin Urine UA NEGATIVE (NEGATIVE); Color Urine UA YELLOW; Glucose Urine UA NEGATIVE (Negative); Ketones Urine UA NEGATIVE (NEGATIVE); Leukocyte Esterase Urine UA TRACE (NEGATIVE); Nitrite Urine UA POSITIVE (Negative); Occult Blood Urine UA TRACE-INTACT (Negative); Protein Urine UA TRACE (Negative); Specific Gravity Urine UA >=1.030 (1.000-1.035); Urobilinogen Urine UA 0.2 E.U./dL (0.2)
[2023-09-27 19:03] LABS: pH Urine UA 5.5 (4.5-8.0)
[2023-09-27 19:35] LABS: Bacteria Urine Many (>30); Calcium Oxalate Crystals Urine Few; Culture Indicated Urine Specimen Cultured; RBC Urine 0-1/HPF (0-5/HPF); Squamous Epithelial Cell Urine 1-5 /HPF (0-5/HPF); WBC Urine 10-30/HPF (0-5/HPF)
== END ==
PROVIDERS: PCP Nurse Practitioner Family; Visit Provider Nurse Practitioner Family
DX: R82.998 Other abnormal findings in urine (principal); R80.1 Persistent proteinuria, unspecified
CPT/HCPCS: 81001; 87077; 87086; 87186

== ENCOUNTER 2023-11-26 10:05 | Day surgery (SDC) | payer MEDICARE, SELFPAY ==
[2023-11-26] VITALS (8 sets, daily range): BP systolic 97–149; BP diastolic 47–84; PULSE 45–59; RESP 10–16; TEMP 35.8–36.2; O2SAT 94–98; BMI 21.0
--- NOTE | 2023-11-26 11:03 | PM.GYNHP.1 ---
History of Present Illness History of Present Illness Reason for admission: pelvic prolapse Narrative: Tonia Ariza is a 88 year old female 2 para 1 with third-degree uterine prolapse This has been managed with a pessary, but due to patient's increasing memory issues, managing the pessary as an outpatient has become difficult. She has gone to the operating room twice to change the pessary. She is here for a colpocleisis for definitive management. [facility] Medical History (Updated 05/14/23 @ 12:07 by Gi Daley MD) Insomnia Age-related osteoporosis without current pathological fracture Do not resuscitate Fractures (~1997) Measles Chicken pox Hearing loss (~1949) History of urinary incontinence (~2007) Fecal incontinence (~2020) Skin cancer (~2011) Depression, recurrent Essential hypertension Alzheimer's dementia (~2014) Pessary maintenance Presence of pessary Healthy adult Surgical History (System 04/27/23 @ 12:38 by Chivo Hobson) No pertinent past surgical history Family History Father Pneumonia Brother Cancer Grandfather History of heart disease Social History (System 04/27/23 @ 12:38 by Chivo Hobson) household members: spouse Smoking Status: Never smoker alcohol intake: current Meds Home Medications and Allergies Home Medications Medication Instructions Recorded Confirmed Type multivitamin 1 tab PO QNOON 07/29/18 04/24/23 History Disabled Parking Permit 1 ea Not Applicable DAILY #1 ea 11/17/22 04/24/23 Rx trazodone 50 mg tablet 25 mg (1/2 x 50 mg) PO BEDTIME PRN 12/08/22 11/26/23 Rx sleep #60 tabs docusate sodium 100 mg capsule 100 mg PO DAILY 11/23/23 11/23/23 History hydrocodone 5 mg-acetaminophen 325 1 tab PO Q4H PRN Pain, Moderate 11/23/23 11/26/23 History mg tablet paroxetine HCl 10 mg tablet 20 mg PO DAILY 11/23/23 11/23/23 History psyllium husk (with sugar) 2 gram 2 wafer PO DAILY 11/23/23 11/23/23 History oral wafer (Metamucil Fiber Thin) Allergies Allergy/AdvReac Type Severity Reaction Status Date / Time haloperidol AdvReac Intermediate agitation Verified 05/17/23 08:43 quetiapine AdvReac Intermediate confusion, Verified 05/17/23 08:43 agitation capsules AdvReac Intermediate unable to Uncoded 05/17/23 08:43 take capsules Exam Narrative Exam Narrative: Generally: Frail elderly woman, moderately agitated HEENT: No thyromegaly, no anterior cervical or supraclavicular lymphadenopathy. Lungs:Clear to auscultation bilaterally, no wheezes. Cardiovascular: Regular rate and rhythm, no murmurs, rubs, or gallops. Abdomen: No scars. No hepatosplenomegaly. No masses palpable. External genitalia: Deferred Vagina: Deferred Cervix: Deferred Bimanual exam: 5 Week size prolapse uterus, coming out of the vagina, based on last time she was in the operating room Extremities: No edema Assessment & Plan Assessment & Plan narrative: Assessment: 88-year-old 2 para 1 with third-degree uterine prolapse Increasing memory issues making it difficult to manage the pessary as an outpatient Family desires definitive therapy Plan: Uterine colpocleisis The risks, benefits, and alternatives to the procedure were explained to the patient. The risks including bleeding and infection. Her understands these risks and agrees to proceed. A full par Q was held and consent form was signed. Time Spent With Patient Time with patient: less than 30 minutes
--- NOTE | 2023-11-26 11:08 | SUR.OPER ---
Lithotomy on padded OR bed, head on pillow, arms secured on padded arm boards at <90 degrees abduction. Legs secured in padded yellow fins stirrups.
[2023-11-26] MEDS: CEFAZOLIN 2 GM/100 ML PREMIX 100 ML IV (11:35)
[2023-11-26] MEDS: BUPIVACAINE 0.25% (PF) 30 ML, EPINEPHrine 0.15 MG INJ (11:58)
--- NOTE | 2023-11-26 13:11 | P.OP_ITS ---
Operative Date/Time/Diagnoses Date of procedure: 11/26/23 Time of procedure: 13:11 Pre-op diagnosis: Uterine procidentia Unable to manage pessary as an outpatient due to patient's dementia Post-op diagnosis: same Procedure & Clinicians Procedure: Procedures Operation Date: 11/26/23 11:15 Actual Procedure Side Surgeon p Uterine Colpocleisis, Perinealplasty Gi Daley MD [place] colpocleisis Perineoplasty Indications: Patient is an 88-year-old 2 para 1 with uterine procidentia. Due to worsening dementia, unable to manage the pessary as an outpatient. Family requests definitive surgical therapy Surgeon: Gi Daley Safety Investigator/Cause Analyst: Veda Goldberg Anesthesia Type: Sedation and Local Operative Notes Findings: 5 week size uterine procidentia Closure Type: primary Specimen(s): none Applied: catheter (Placed at the beginning of the case, removed at the end) Estimated blood loss (mL): 10 Blood products transfused: none Procedure in detail: Informed consent was obtained from the . The patient was taken to the operating room where she was placed in the dorsal supine position. An IV was placed. IV sedation was given. She was placed into the dorsal lithotomy position, the #5 ring with support pessary was removed from vagina. She was prepped and draped in the usual sterile fashion. A latex-free catheter was placed into the bladder and left to drainage. The cervix was grasped with 2 Allis clamps. Using a marker, a trapezoid width the narrow and towards the cervix was outlined with a marker on the anterior and posterior mucosa. 10 cc of 0.25% Marcaine with epinephrine were injected submucosally anteriorly and posteriorly. Using a # 10 blade, the trapezoid shaped mucosa was incised. Using the Metzenbaum scissors the mucosa was undermined and removed. The Bovie was used for hemostasis. Starting at the cervical and, at the mucosal edges going from into out an out to in the cervix was reduced creating channels along the side using 2-0 Vicryl. The muscularis was then grasped and rows of imbricating stitches were performed from anterior to posterior rolling the cervix and uterus inside the vagina. Of the mucosal edges the stitches were placed into out anteriorly and out to in posteriorly to create side channels for drainage. Once the uterus was completely reduced. Allis clamps were placed at the mucocutaneous junction. And cc of 0.25% Marcaine with epinephrine were injected along the proposed triangle piece of tissue to be removed. Using a 10 blade an incision was made between the 2 Allis clamps and a triangular piece of tissue including mucosa and underlying tissue towards the perineal body was removed. The Bovie was used for hemostasis. The vaginal mucosal edge was tagged with a 2-0 Vicryl suture for reference. Using 0 Vicryl, the crown stitch was placed. Several deep stitches with 2-0 Vicryl were placed to reapproximate. 2-0 Vicryl was used to close the mucosa in a running interlocking fashion. Hemostasis was achieved. The channels along the side of the vagina were tested and were in place. Sponge, lap, and instrument counts were correct x2. The patient tolerated the procedure well, and was taken to PACU in stable condition. Complications: none Post-operative Condition: stable Disposition: PACU Plan for aftercare: To [facility] after recovery
--- NOTE | 2023-11-26 13:11 | PM.PREOP ---
Pre-operative Note Interval Note History & Physical reviewed/Exam performed by Physician: Yes Changes to H&P: Yes H&P completed within 30 days and has changed as indicated here:: 11/26/23
--- NOTE | 2023-11-26 15:23 | SUR.PHASEII ---
discharge instruction faxed to [facility]. Report givven to Tessie
== END 2023-11-26 14:30 ==
PROVIDERS: PCP Nurse Practitioner Family; Referring Provider Obstetrics & Gynecology; Visit Provider Obstetrics & Gynecology
PROC: (CPT 57120; principal; 2023-11-26 11:15)
DX: N81.3 Complete uterovaginal prolapse (principal); F03.90 Unspecified dementia, unspecified severity, without behavioral disturbance, psychotic disturbance, mood disturbance, and anxiety
CPT/HCPCS: 57120; J0171; J0690; J2250; J2704; J3010

== ENCOUNTER → 2024-03-26 19:42 | Outpatient (ROUT) | payer MEDICARE, SELFPAY ==
[2024-03-26 20:03] LABS: Appearance Urine UA CLEAR; Bilirubin Urine UA NEGATIVE (NEGATIVE); Color Urine UA YELLOW; Glucose Urine UA NEGATIVE (Negative); Ketones Urine UA TRACE (NEGATIVE); Leukocyte Esterase Urine UA NEGATIVE (NEGATIVE); Nitrite Urine UA POSITIVE (Negative); Occult Blood Urine UA NEGATIVE (Negative); Protein Urine UA NEGATIVE (Negative); Urobilinogen Urine UA 0.2 E.U./dL (0.2); pH Urine UA 5.5 (4.5-8.0)
[2024-03-26 20:12] LABS: Bacteria Urine Many (>30); Culture Indicated Urine Specimen Cultured; RBC Urine 0-1/HPF (0-5/HPF); Squamous Epithelial Cell Urine 0-1 /HPF (0-5/HPF); Urine Volume 10mL (spun); WBC Urine 1-5/HPF (0-5/HPF)
== END ==
PROVIDERS: PCP Nurse Practitioner Family; Visit Provider Registered Nurse
DX: N39.0 Urinary tract infection, site not specified (principal)
CPT/HCPCS: 81001; 87077; 87086; 87186

== ENCOUNTER 2024-04-24 18:40 | Emergency (ER) | payer MEDICARE, SELFPAY ==
[2024-04-24 18:46] VITALS: TEMP 36.2
[2024-04-24 18:56] VITALS: PULSE 60; O2SAT 94
[2024-04-24 18:58] VITALS: PULSE 61; O2SAT 97
--- NOTE | 2024-04-24 20:16 | PC.NURSE ---
Daughter reports 50mg trazadone given at 1730.
--- NOTE | 2024-04-24 20:44 | PC.NURSE ---
patient's nurse from [facility] called and gave details about patient: Patient is DNR/ Full Treatment Alert to self at baseline. can verbalize pain, need for bathroom, hunger. Its normal for her to squint. She eats a regular diet usually with her hands and needs feeding companionship. The patient's only pain med is apap as needed which she takes infrequently for knee pain related to wondering. She ambulates independently and usually is not a fall risk. Her vitals at baseline are: RR: 14-16 Temp: 97F HR: 60-70 regular O2: 94-97 RA. She takes her pills crushed and in a carrier. She normally is sweet but struggles to have any interactions requiring care that requires touch.
[2024-04-24 22:10] VITALS: PULSE 60; RESP 18; O2SAT 94
[2024-04-24 23:03] VITALS: PULSE 58; RESP 14; O2SAT 97
[2024-04-25] VITALS (8 sets, daily range): BP systolic 121–147; BP diastolic 60–69; PULSE 52–64; O2SAT 95–99
--- NOTE | 2024-04-25 01:03 | ED.FALL ---
HPI - Fall General Chief Complaint: Fall Stated Complaint: Fall, Time Seen by Provider: 04/25/24 01:01 Source: patient, RN notes reviewed and old records reviewed Mode of arrival: EMS Limitations: no limitations History of Present Illness HPI Narrative: 89-year-old female with history of dementia, osteoporosis with witnessed ground level fall onto her face. No loss of consciousness has some blood with deformed nose, no thinners. Reported some C-spine tenderness. Patient has dementia at baseline in his typically noncompliant with imaging or workups according to family. Patient is on medications for bowel movements, asleep but no anticoagulants. Daughter at bedside states that she had gone to have her nails clipped and had received medication that would make her more sedated before this. She then had her trazodone about 530 this evening. She states that likely contributed patient had gotten out of bed and fallen landing on her face. No one was present but there are video tapes from the room per daughter. No reported loss of consciousness. Patient awakens briefly during examination. Daughter states she seems a little bit more sedated than typical but had also received medications today. She denies any recent major surgeries. No tobacco, alcohol or recreational drugs patient is DNR/DNI with limited intervention. Related Data Home Medications Medication Instructions Recorded Confirmed multivitamin 1 tab PO QNOON 07/29/18 12/07/23 docusate sodium 100 mg capsule 100 mg PO DAILY 11/23/23 12/07/23 hydrocodone 5 mg-acetaminophen 325 1 tab PO Q4H PRN Pain, Moderate 11/23/23 12/07/23 mg tablet paroxetine HCl 10 mg tablet 20 mg PO DAILY 11/23/23 12/07/23 psyllium husk (with sugar) 2 gram 2 wafer PO DAILY 11/23/23 12/07/23 oral wafer (Metamucil Fiber Thin) Previous Rx's Medication Instructions Recorded Disabled Parking Permit 1 ea Not Applicable DAILY #1 ea 11/17/22 trazodone 50 mg tablet 25 mg (1/2 x 50 mg) PO BEDTIME PRN 12/08/22 sleep #60 tabs Allergies Allergy/AdvReac Type Severity Reaction Status Date / Time haloperidol AdvReac Intermediate agitation Verified 12/07/23 15:03 quetiapine AdvReac Intermediate confusion, Verified 12/07/23 15:03 agitation capsules AdvReac Intermediate unable to Uncoded 04/25/24 02:42 take capsules Review of Systems Review of Systems ROS Unobtainable: All systems reviewed & are unremarkable except as noted in HPI and below Patient History Medical History Insomnia Age-related osteoporosis without current pathological fracture Do not resuscitate Fractures (~1997) Measles Chicken pox Hearing loss (~1949) History of urinary incontinence (~2007) Fecal incontinence (~2020) Skin cancer (~2011) Depression, recurrent Essential hypertension Alzheimer's dementia (~2014) Pessary maintenance Presence of pessary Healthy adult Surgical History No pertinent past surgical history Family History Father Pneumonia Brother Cancer Grandfather History of heart disease Social History household members: spouse Smoking Status: Never smoker alcohol intake: current Smoking Status: Never smoker alcohol intake frequency: holidays/special occasions only Substance Use Type: does not use Exam Narrative Exam Narrative: GEN: Patient appears in mild distress. HEAD: Patient has nasal contusions, ecchymosis with periorbital ecchymosis on the left and starting to develop on the right, small abrasion over the top of the nose,, no Chinchilla sign. NECK: Nontender, painless range of motion, trachea midline Positive Nexus criteria, no mid line tenderness, distracting injury, positive altered mental status, no neuro deficit, recent EtOH. EYES: PERRLA, EOMI ENT: See above, trachea is midline, TM's are normal no hemotypanum, Nares shows some dried blood bilaterally, no septal hematoma, no dental or oral injury, airway is normal and with normal occlusion, No bony tenderness RESP: Chest is nontender and has symmetric movement, no ecchymosis, breath sounds are normal no crackles, wheezes or rales CVS: Heart sounds are normal, no murmur noted, No JVD. ABG/GI: Nontender, soft, normal bowel sounds, no distention, no organomegaly, pelvic rock is negative NEURO: Oriented AOx3, neuro is grossly intact, sensation and motor is normal all 4 extremities moving, cranial nerves II through XII are intact, GCS is[default value] PSYCH: Normal mood and affect SKIN: Intact, warm and dry, no crepitus and without decubitus BACK: No CVA tenderness, no vertebral tenderness, no step-off's, no crepitus EXT: Atraumatic, hips are nontender, no pedal edema, normal color and temperature, normal range of motion of extremities with normal tendon exam, 2+ pulses in all four extremities Initial Vital Signs Initial Vital Signs: Vital Signs Temperature 97.2 F L 04/24/24 18:46 Scores GCS Mariana coma scale eye opening: Spontaneous Mariana coma scale verbal response: Words Mariana coma scale motor response: Localising Mariana coma scale total score: 12 Nexus Score for C-Spine Focal Neurologic deficit present: No Midline spinal tenderness present: No Altered level of conciousness present: Yes (Dementia at baseline) Intoxication present: No Distracting Injury Present: No Nexus Criteria for C-spine: 1 Course Orders Ordered: ED Orders 04/25/24 01:23 CT cervical spine wo con Stat CT facial bones wo con Stat CT head/brain wo con Stat Discontinued Medications Lorazepam (Lorazepam 2 Mg/Ml Inj) 1 mg IM NOW ONE Stop: 04/25/24 01:24 Last Admin: 04/25/24 01:36 Dose: 1 mg Documented By: AB Vital Signs Vital signs: Vital Signs - 8 hr 04/24/24 22:10 04/24/24 23:03 04/25/24 00:30 Pulse Rate 60 58 L 57 L Respiratory Rate 18 14 Blood Pressure Pulse Oximetry 94 97 99 Oxygen Delivery Method Room Air Room Air 04/25/24 00:35 04/25/24 00:35 04/25/24 01:00 Pulse Rate 64 59 L Respiratory Rate Blood Pressure 125/60 Pulse Oximetry 98 97 Oxygen Delivery Method 04/25/24 01:00 04/25/24 01:30 04/25/24 01:31 Pulse Rate 52 L Respiratory Rate Blood Pressure 121/63 147/67 H Pulse Oximetry 96 Oxygen Delivery Method 04/25/24 01:31 04/25/24 02:01 04/25/24 02:02 Pulse Rate 58 L 63 Respiratory Rate Blood Pressure Pulse Oximetry 95 96 96 Oxygen Delivery Method 04/25/24 04:03 Pulse Rate Respiratory Rate Blood Pressure 124/69 Pulse Oximetry Oxygen Delivery Method MDM - Fall MDM Narrative Medical decision making narrative: 89-year-old female with ground level fall, mechanical. Patient has obvious bruising and ecchymosis with some dried blood from epistaxis. No reported loss of consciousness fall was witnessed on video from patient's dementia facility. She has a little bit decreased mentation according to her daughter although states she did have medication today for sedation prior to having her toenails cut and then received trazodone before the fall which has a normal medication for her. Daughter notes that she is typically able to have evaluations without some form of sedation. Patient had a dose of IM Ativan prior to CT. Head CT no acute intracranial findings, opacification majority of right mastoid cells. CT C-spine no acute fracture, small dependent left pleural effusion versus pleural thickening. Multilevel mild grade 1 listhesis. Multilevel cervical spine degenerative changes. CT facial bones depressed fracture of the left aspect of the nasal ridge. Minimal buckling right nasal bone opacification majority right mastoid air cells, mild left perinasal neighboring left buccal soft tissue contusion/hematoma temporomandibular joints are intact. Left sphenoid sinus foamy secretions, maxillary sinus polyp/retention just 1 mild right maxillary sinus mucosal thickening. Few bilateral ethmoid sinus polyps/retention she was. Opacification right mastoid air cells. Unremarkable orbital contents. Patient had some dried blood but no persistent epistaxis. Patient does have nasal bone fracture but no other significant fractures does have some chronic degenerative changes as well as sinus social mucosal thickening. And left pleural effusion versus pleural thickening. Discussed with patient and family both patient's daughter and are at bedside. Reviewed findings from today. Plan for discharge home. They feel comfortable attempting to transport by private auto if they can have assistance with wheelchair getting in and out of the car. Discharge Plan Departure Patient Disposition: Home Clinical Impression: Closed fracture nasal bone, Contusion of face, Fall Activity Restrictions/Additional Instructions: Follow up as needed, you do have a fracture to your nasal but no other fractures to the skull, cervical spine facial bones. There is a little bit of what is likely a pleural effusion on the left. Avoid blowing your nose. Please return for any new or concerning changes, watch for any new changes to mental status, severe pain, difficulty with breathing, persistent vomiting, difficulty with moving extremities or other new or concerning changes. Prescriptions: No Action Disabled Parking Permit 1 ea Not Applicable DAILY Qty: 1 0RF trazodone 50 mg tablet 25 mg PO BEDTIME PRN (Reason: sleep) Qty: 60 0RF Rx Instructions: 1/2 to 1 tablet as needed for sleep multivitamin Tablet 1 tab PO QNOON paroxetine HCl 10 mg tablet 20 mg PO DAILY hydrocodone-acetaminophen 5-325 mg tablet 1 tab PO Q4H PRN (Reason: Pain, Moderate) docusate sodium 100 mg Capsule 100 mg PO DAILY Metamucil Fiber Thin 2 gram Wafer 2 wafer PO DAILY Referrals: Shahida Monroe ARNP [Primary Care Provider] - Stand Alone Forms: Patient Portal/API
--- NOTE | 2024-04-25 01:23 | DI.CT.S_ITS ---
PROCEDURE: CT HEAD/BRAIN WO CON INDICATIONS: Fall, facial bruising, nasal bruising, periorbital ecchymosi TECHNIQUE: Noncontrast 4.5 mm thick angled axial sections acquired from the foramen magnum to the vertex, with coronal and sagittal reformats. For radiation dose reduction, the following was used: automated exposure control, adjustment of mA and/or kV according to patient size. COMPARISON: [facility], CT, HEAD WITHOUT CONTRAST, 09/06/2016, 8:43. FINDINGS: Image quality: Diagnostic. CSF spaces: Basal cisterns are patent. No extra-axial fluid collections. The ventricles are symmetric in size and shape. Brain: No intracranial bleeds or masses. There is cerebral volume loss for age, with resultant ventricular and sulcal prominence. There are periventricular and deep white matter chronic small vessel ischemic changes. There is intracranial internal carotid artery atherosclerosis. Skull and face: Calvarium and visualized facial bones appear intact, without suspicious lesions. Sinuses: Visualized sinuses demonstrates mucous retention cyst versus polyp along with mucosal thickening in the left maxillary sinus. Mild mucosal thickening is present on the right. IMPRESSION: 1. No acute intracranial process. 2. Moderate to severe atrophy and chronic microvascular ischemic changes. The above findings are concordant with preliminary report. Dictated by: Ct Goldman M.D. on 04/25/2024 at 7:46 Approved by: Ct Goldman M.D. on 04/25/2024 at 7:49
--- NOTE | 2024-04-25 01:23 | DI.CT.S_ITS ---
PROCEDURE: CT FACIAL BONES WO CON INDICATIONS: Fall, facial bruising, nasal bruising, periorbital ecchymosi TECHNIQUE: Noncontrast 2.5 mm thick axial images acquired from the mandible through the frontal sinuses, with coronal and sagittal reformatting. For radiation dose reduction, the following was used: automated exposure control, adjustment of mA and/or kV according to patient size. COMPARISON: None. FINDINGS: Image quality: Excellent. Bones and teeth: Orbital granados are intact. Sinus granados show no fracture or deformity. Nasal bones demonstrate mil depressed fracture anteriorly. Visualized portions of the mandible demonstrate no fractures or subluxation. Zygomatic arches are intact. Pterygoid plates are intact. Visualized portions of the skull base and auditory canals are intact. Sinuses: Mucosal thickening is present within the maxillary sinuses bilaterally including mucous retention cyst versus polyp in the left maxillary sinus.. Mastoid air cells are aerated. Soft tissues: Soft tissue edema and air is present overlying the nasal bone fracture. No enlarged lymph nodes. No soft tissue lacerations or debris. Vascular: Visualized vascular structures appear normal in the absence of contrast. Bony vascular foramina and canals are intact. IMPRESSION: Anterior nasal bone fracture with soft tissue edema. Dictated by: Ct Goldman M.D. on 04/25/2024 at 7:49 Approved by: Ct Goldman M.D. on 04/25/2024 at 7:51
--- NOTE | 2024-04-25 01:23 | DI.CT.S_ITS ---
PROCEDURE: CT CERVICAL SPINE WO CON INDICATIONS: Fall, facial bruising, nasal bruising, periorbital ecchymosi TECHNIQUE: Noncontrast 3 mm thick sections acquired from the skull base to the T4 level. Sagittal and coronal reformats were then constructed. For radiation dose reduction, the following was used: automated exposure control, adjustment of mA and/or kV according to patient size. COMPARISON: None. FINDINGS: Image quality: Excellent. Bones: No fractures or dislocations. Visualized superior ribs are intact. Multilevel degenerative changes are present. Soft tissues: Prevertebral soft tissues are normal in thickness. No paravertebral hematomas. No apical pneumothoraces. Minimal left effusion. IMPRESSION: Degenerative changes without visualized fracture. The above findings are concordant with preliminary report. Dictated by: Ct Goldman M.D. on 04/25/2024 at 7:51 Approved by: Ct Goldman M.D. on 04/25/2024 at 7:53
[2024-04-25] MEDS: LORazepam 2 MG/ML INJ 1 MG IM (01:36)
--- NOTE | 2024-04-25 04:18 | PC.NURSE ---
Changed pt brief, pericare completed. New xl orange brief placed. Family given 2 blue eleazar pads for car ride back to [facility]. Report to [facility] staff given by MANUEL Phelps prior to departure. This RN and Coni Perez RN assisted pt to car. With some difficulty and resistance from pt pt coached on getting into car.
== END 2024-04-25 04:22 | disposition home or self-care (01) ==
PROVIDERS: Emergency Provider Emergency Medicine; PCP Nurse Practitioner Family
DX: S02.2XXA Fracture of nasal bones, initial encounter for closed fracture (principal); S00.83XA Contusion of other part of head, initial encounter; F03.90 Unspecified dementia, unspecified severity, without behavioral disturbance, psychotic disturbance, mood disturbance, and anxiety; W18.30XA Fall on same level, unspecified, initial encounter
CPT/HCPCS: 70450; 70486; 72125; 96372; 99283; 99284; J2060

== ENCOUNTER → 2024-05-08 10:21 | Outpatient (CLI) | payer MEDICARE, SELFPAY ==
[2024-05-08 11:59] LABS: Appearance Urine UA CLEAR; Bilirubin Urine UA NEGATIVE (NEGATIVE); Color Urine UA YELLOW; Glucose Urine UA NEGATIVE (Negative); Ketones Urine UA TRACE (NEGATIVE); Leukocyte Esterase Urine UA NEGATIVE (NEGATIVE); Nitrite Urine UA POSITIVE (Negative); Occult Blood Urine UA NEGATIVE (Negative); Protein Urine UA NEGATIVE (Negative); Urobilinogen Urine UA 0.2 E.U./dL (0.2)
[2024-05-08 12:17] LABS: Bacteria Urine Many (>30); Calcium Oxalate Crystals Urine Moderate; Culture Indicated Urine Specimen Cultured; RBC Urine None Seen (0-5/HPF); Squamous Epithelial Cell Urine 0-1 /HPF (0-5/HPF); Urine Volume 10mL (spun); WBC Urine 5-10/HPF (0-5/HPF); pH Urine UA 6.5 (4.5-8.0)
== END ==
PROVIDERS: PCP Nurse Practitioner Family; Referring Provider Nurse Practitioner Family; Visit Provider Nurse Practitioner Family
DX: R31.9 Hematuria, unspecified (principal); N39.0 Urinary tract infection, site not specified
CPT/HCPCS: 81001; 87077; 87086; 87186

== ENCOUNTER 2024-05-20 16:40 | Inpatient (IN) | payer MEDICARE, SELFPAY ==
[2024-05-20] VITALS (13 sets, daily range): BP systolic 127–206; BP diastolic 55–119; PULSE 52–70; RESP 16–18; TEMP 36.3–36.9; O2SAT 90–100; BMI 23.8
--- NOTE | 2024-05-20 16:44 | DI.RAD.S_ITS ---
PROCEDURE: XR HIP W PEL IF DONE RT 2V INDICATIONS: right hip pain, s/p fall TECHNIQUE: AP pelvis with lateral view(s) of the right hip(s). COMPARISON: None. FINDINGS: Bones: Mildly comminuted, displaced intertrochanteric fracture of the proximal right femur. There is foreshortening of the distal fracture fragment. Other visualized osseous structures of the bony pelvis and left hip appear intact. Degenerative changes of the left hip. Soft tissues: The visualized bowel gas pattern is normal. No suspicious soft tissue calcifications. IMPRESSION: Mildly comminuted, displaced intertrochanteric fracture of the proximal right femur. Dictated by: Chris Jacques M.D. on 05/20/2024 at 18:38 Approved by: Chris Jacques M.D. on 05/20/2024 at 18:39
[2024-05-20] MEDS: MORPHINE 4 MG/ML INJ IV (17:23)
--- NOTE | 2024-05-20 17:37 | ED_ITS ---
HPI - Fall <Saba Patiño, - Last Filed: 05/21/24 07:39> General Chief Complaint: Fall Stated Complaint: GLF/R femur pain Time Seen by Provider: 05/20/24 16:44 Source: EMS Mode of arrival: EMS History of Present Illness HPI Narrative: 89-year-old female with history of dementia, osteoporosis who has had falls in the past who presents with complaint of falling out of her wheelchair. Patient was at her facility staff state she slipped out of her chair. Do not describe hitting her head. They noted that her leg looked deformed and called EMS. Patient has been acting like she is painful and does not want her leg touched. She can give her name but does not answer questions overall although she is conversant. Per EMS she is at baseline in his typically noncompliant with the workups or imaging according to prior visits as well. at bedside states no anticoagulants does take medication for sleep and her dementia. Has adverse reactions to Haldol, quetiapine. No tobacco occasional alcohol, no recreational drugs. Related Data Home Medications Medication Instructions Recorded Confirmed multivitamin 1 tab PO QNOON 07/29/18 05/20/24 docusate sodium 100 mg capsule 100 mg PO DAILY 11/23/23 05/20/24 hydrocodone 5 mg-acetaminophen 325 1 tab PO Q4H PRN Pain, Moderate 11/23/23 05/20/24 mg tablet lorazepam 0.5 mg tablet 0.5 mg PO PRN PRN Anxiety 05/20/24 05/20/24 paroxetine HCl 10 mg tablet 10 mg PO DAILY 05/20/24 05/20/24 Previous Rx's Medication Instructions Recorded Disabled Parking Permit 1 ea Not Applicable DAILY #1 ea 11/17/22 trazodone 50 mg tablet 25 mg (1/2 x 50 mg) PO BEDTIME PRN 12/08/22 sleep #60 tabs Allergies Allergy/AdvReac Type Severity Reaction Status Date / Time haloperidol AdvReac Intermediate agitation Verified 12/07/23 15:03 quetiapine AdvReac Intermediate confusion, Verified 12/07/23 15:03 agitation capsules AdvReac Intermediate unable to Uncoded 04/25/24 02:42 take capsules Review of Systems <DO Laina Tillman Last Filed: 05/21/24 07:39> Review of Systems ROS Unobtainable: All systems reviewed & are unremarkable except as noted in HPI and below Patient History <Saba Patiño DO - Last Filed: 05/21/24 07:39> Medical History Insomnia Age-related osteoporosis without current pathological fracture Do not resuscitate Fractures (~1997) Measles Chicken pox Hearing loss (~1949) History of urinary incontinence (~2007) Fecal incontinence (~2020) Skin cancer (~2011) Depression, recurrent Essential hypertension Alzheimer's dementia (~2014) Pessary maintenance Presence of pessary Healthy adult Surgical History No pertinent past surgical history Family History Father Pneumonia Brother Cancer Grandfather History of heart disease Social History household members: spouse Smoking Status: Never smoker alcohol intake: current Smoking Status: Never smoker alcohol intake frequency: holidays/special occasions only Substance Use Type: does not use Exam <Saba Patiño DO - Last Filed: 05/21/24 07:39> Narrative Exam Narrative: GEN: Patient appears in moderate distress. Patient is alert, follows some commands. HEAD: No evidence of trauma, no raccoon/Chinchilla sign. NECK: Nontender, painless range of motion, trachea midline EYES: PERRLA, EOMI ENT: External inspection normal, trachea is midline, TM's are normal no hemotypanum, Nares are clear, no septal hematoma, no dental or oral injury, airway is normal and with normal occlusion, No bony tenderness RESP: Chest is nontender and has symmetric movement, no ecchymosis, breath sounds are normal no crackles, wheezes or rales CVS: Heart sounds are normal, no murmur noted, No JVD. ABG/GI: Nontender, soft, normal bowel sounds, no distention, no organomegaly, pelvic rock is negative NEURO: Oriented AOx3, neuro is grossly intact, sensation and motor is normal all 4 extremities moving, cranial nerves II through XII are intact, GCS is 14 PSYCH: Normal mood and affect SKIN: Intact, warm and dry, no crepitus and without decubitus BACK: No CVA tenderness, no vertebral tenderness, no step-off's, no crepitus EXT: Right hip is tender, appears deformed, patient has pain although she does try to lift her right leg. No tenderness of the knee, tib-fib, ankle or foot. 2+ pulses bilaterally. She is slightly shortened and externally rotated. Hips are nontender, no pedal edema, normal color and temperature, normal range of motion of extremities with normal tendon exam, 2+ pulses in all four extremities Initial Vital Signs Initial Vital Signs: Vital Signs Temperature 97.4 F L 05/20/24 16:56 Pulse Rate 70 05/20/24 16:56 Respiratory Rate 18 05/20/24 16:56 Blood Pressure 127/82 05/20/24 16:56 Pulse Oximetry 99 05/20/24 16:56 Oxygen Delivery Method Room Air 05/20/24 16:56 <Saba Lozada MD - Last Filed: 05/20/24 20:52> Initial Vital Signs Initial Vital Signs: Vital Signs Temperature 97.4 F L 05/20/24 16:56 Pulse Rate 70 05/20/24 16:56 Respiratory Rate 18 05/20/24 16:56 Blood Pressure 127/82 05/20/24 16:56 Pulse Oximetry 99 05/20/24 16:56 Oxygen Delivery Method Room Air 05/20/24 16:56 Course <Saba Patiño DO - Last Filed: 05/21/24 07:39> Orders Ordered: Acetaminophen (Acetaminophen 325 Mg Tablet) 650 mg PO Q6H PRN PRN Reason: Fever/Mild Pain (1-3) Hydromorphone HCl (Hydromorphone 0.5 Mg Inj) 0.5 mg IV Q2H PRN PRN Reason: Pain, Severe (7-10) Last Admin: 05/20/24 19:14 Dose: 0.5 mg Documented By: DORIS Sodium Chloride (Normal Saline 0.45%) 1,000 mls @ 100 mls/hr IV CONT SANJU Last Infusion: 05/20/24 20:00 Dose: 0 mls/hr Documented By: Admin: 05/20/24 18:58 Dose: 100 mls/hr Documented By: DORIS Naloxone HCl (Naloxone 0.4 Mg/Ml Vial) 0.2 mg IV Q2MIN PRN PRN Reason: Opiate Reversal Ondansetron HCl (Ondansetron 4 Mg/2 Ml Inj) 4 mg IV Q8HR PRN PRN Reason: Nausea And Vomiting Last Admin: 05/20/24 19:14 Dose: 4 mg Documented By: DORIS Oxycodone HCl (Oxycodone Ir 10 Mg Tablet) 10 mg PO Q3H PRN PRN Reason: Pain, Severe (7-10) Discontinued Medications Morphine Sulfate (Morphine 4 Mg/Ml Inj) 4 mg IV NOW ONE Stop: 05/20/24 17:09 Last Admin: 05/20/24 17:23 Dose: 4 mg Documented By: JHONNY Vital Signs Vital signs: Vital Signs - 8 hr 05/20/24 16:56 05/20/24 17:28 05/20/24 17:30 Temperature 97.4 F L Pulse Rate 70 59 L 54 L Respiratory Rate 18 Blood Pressure 127/82 Pulse Oximetry 99 97 95 Oxygen Delivery Method Room Air Room Air 05/20/24 17:56 05/20/24 17:56 05/20/24 18:00 Temperature Pulse Rate 54 L 61 Respiratory Rate Blood Pressure 189/110 H Pulse Oximetry 96 96 Oxygen Delivery Method 05/20/24 18:13 05/20/24 18:13 05/20/24 18:30 Temperature Pulse Rate 57 L 54 L Respiratory Rate Blood Pressure 146/77 H Pulse Oximetry 97 95 Oxygen Delivery Method 05/20/24 18:31 05/20/24 18:31 Temperature Pulse Rate 59 L Respiratory Rate Blood Pressure 155/70 H Pulse Oximetry 96 Oxygen Delivery Method <Saba Lozada MD - Last Filed: 05/20/24 20:52> Orders Ordered: Acetaminophen (Acetaminophen 325 Mg Tablet) 650 mg PO Q6H PRN PRN Reason: Fever/Mild Pain (1-3) Hydromorphone HCl (Hydromorphone 0.5 Mg Inj) 0.5 mg IV Q2H PRN PRN Reason: Pain, Severe (7-10) Last Admin: 05/20/24 19:14 Dose: 0.5 mg Documented By: DORIS Sodium Chloride (Normal Saline 0.45%) 1,000 mls @ 100 mls/hr IV CONT SANJU Last Infusion: 05/20/24 20:00 Dose: 0 mls/hr Documented By: Admin: 05/20/24 18:58 Dose: 100 mls/hr Documented By: DORIS Naloxone HCl (Naloxone 0.4 Mg/Ml Vial) 0.2 mg IV Q2MIN PRN PRN Reason: Opiate Reversal Ondansetron HCl (Ondansetron 4 Mg/2 Ml Inj) 4 mg IV Q8HR PRN PRN Reason: Nausea And Vomiting Last Admin: 05/20/24 19:14 Dose: 4 mg Documented By: DORIS Oxycodone HCl (Oxycodone Ir 10 Mg Tablet) 10 mg PO Q3H PRN PRN Reason: Pain, Severe (7-10) Discontinued Medications Morphine Sulfate (Morphine 4 Mg/Ml Inj) 4 mg IV NOW ONE Stop: 05/20/24 17:09 Last Admin: 05/20/24 17:23 Dose: 4 mg Documented By: JHONNY Vital Signs Vital signs: Vital Signs - 8 hr 05/20/24 16:56 05/20/24 17:28 05/20/24 17:30 Temperature 97.4 F L Pulse Rate 70 59 L 54 L Respiratory Rate 18 Blood Pressure 127/82 Pulse Oximetry 99 97 95 Oxygen Delivery Method Room Air Room Air 05/20/24 17:56 05/20/24 17:56 05/20/24 18:00 Temperature Pulse Rate 54 L 61 Respiratory Rate Blood Pressure 189/110 H Pulse Oximetry 96 96 Oxygen Delivery Method 05/20/24 18:13 05/20/24 18:13 05/20/24 18:30 Temperature Pulse Rate 57 L 54 L Respiratory Rate Blood Pressure 146/77 H Pulse Oximetry 97 95 Oxygen Delivery Method 05/20/24 18:31 05/20/24 18:31 Temperature Pulse Rate 59 L Respiratory Rate Blood Pressure 155/70 H Pulse Oximetry 96 Oxygen Delivery Method MDM - Fall <Saba Patiño, - Last Filed: 05/21/24 07:39> Lab Data 05/21/24 06:25 05/21/24 06:25 Labs: Lab Results 05/20/24 Range/Units 17:14 WBC 9.3 (4.5-11.0) X10^3/uL RBC 3.89 L (4.0-5.2) X10^6/uL Hgb 12.0 (12.0-16.0) g/dL Hct 35.9 L (36-46) % MCV 92.4 (80-100) fL MCH 30.8 (26-34) PG MCHC 33.3 (30-36) % RDW 13.5 (11.6-14.8) % Plt Count 262 (150-400) X10^3/uL Neut % (Auto) 60.8 (50-75) % Lymph % (Auto) 27.8 (25-40) % [place] % (Auto) 9.3 (3-14) % Eos % (Auto) 1.8 L (2-4) % Baso % (Auto) 0.3 (0-2) % Neut # (Auto) 5600 (5684-2237) /uL Lymph # (Auto) 2600 (2011-8275) /uL [place] # (Auto) 900 (0-900) /uL Eos # (Auto) 200 (0-450) /uL Baso # (Auto) 0 (0-100) /uL PT 11.1 (9.4-12.5) SECONDS INR 1.0 (0.9-1.3) APTT 31 (25.1-36.5) SECONDS Sodium 139 (137-145) mmol/L Potassium 4.2 (3.4-5.1) mmol/L Chloride 107 (98-107) mmol/L Carbon Dioxide 28 (22-32) mmol/L BUN 22 H (7-17) mg/dL Creatinine 0.56 (0.52-1.04) mg/dL Estimated GFR > 60 (>60) mL/min BUN/Creatinine Ratio 39.3 H (6-22) Glucose 121 H (80-110) mg/dL Calcium 8.8 (8.4-10.2) mg/dL Total Bilirubin 0.4 (0.2-1.3) mg/dL AST 25 (14-36) IU/L ALT 21 (<35) IU/L Alkaline Phosphatase 74 (38-126) U/L Total Protein 7.0 (6.3-8.2) g/dL Albumin 3.9 (3.5-5.0) g/dL Globulin 3.1 (1.7-4.1) g/dL Albumin/Globulin Ratio 1.3 (1.0-2.8) Blood Type B Positive Antibody Screen Negative Imaging Data Extremity x-ray #1: Radiologist's Impression: [place] [id number] XRay Report Signed Patient: Tonia Ariza MR#: [id number] : 1935 Acct:[id number] Age/Sex: 89 / F Date of Service: 05/20/24 Loc: 90A-1 Accession Number: [id number] Procedure: XR hip w pel if done RT 2V Ordering Provider: Saba Patiño D.O. PROCEDURE: XR HIP W PEL IF DONE RT 2V INDICATIONS: right hip pain, s/p fall TECHNIQUE: AP pelvis with lateral view(s) of the right hip(s). COMPARISON: None. FINDINGS: Bones: Mildly comminuted, displaced intertrochanteric fracture of the proximal right femur. There is foreshortening of the distal fracture fragment. Other visualized osseous structures of the bony pelvis and left hip appear intact. Degenerative changes of the left hip. Soft tissues: The visualized bowel gas pattern is normal. No suspicious soft tissue calcifications. IMPRESSION: Mildly comminuted, displaced intertrochanteric fracture of the proximal right femur. Dictated by: Chris Jacques M.D. on 05/20/2024 at 18:38 Approved by: Chris Jacques M.D. on 05/20/2024 at 18:39 MDM Narrative Medical decision making narrative: Patient's hip x-ray shows obvious fracture at the right oblique intertrochanteric fracture, patient is neurovascularly intact. Spoke with orthopedic surgery, Dr. Crockett who recommends surgery. NPO after midnight. Patient was placed and nonviolent restraints as she kept pulling at things. Patient had line placed, pain medications. Has been at bedside agreeable for interventions. Labs, white count of 9 hemoglobin of 12 platelets of 262. Electrolytes are otherwise appropriate BUN 22, glucose of 121. Formal read on x-ray, Spoke with Dr Ryan who accepts for admission. <Saba Lozada MD - Last Filed: 05/20/24 20:52> Lab Data Labs: Lab Results 05/20/24 Range/Units 17:14 WBC 9.3 (4.5-11.0) X10^3/uL RBC 3.89 L (4.0-5.2) X10^6/uL Hgb 12.0 (12.0-16.0) g/dL Hct 35.9 L (36-46) % MCV 92.4 (80-100) fL MCH 30.8 (26-34) PG MCHC 33.3 (30-36) % RDW 13.5 (11.6-14.8) % Plt Count 262 (150-400) X10^3/uL Neut % (Auto) 60.8 (50-75) % Lymph % (Auto) 27.8 (25-40) % [place] % (Auto) 9.3 (3-14) % Eos % (Auto) 1.8 L (2-4) % Baso % (Auto) 0.3 (0-2) % Neut # (Auto) 5600 (6068-1981) /uL Lymph # (Auto) 2600 (8776-7682) /uL [place] # (Auto) 900 (0-900) /uL Eos # (Auto) 200 (0-450) /uL Baso # (Auto) 0 (0-100) /uL PT 11.1 (9.4-12.5) SECONDS INR 1.0 (0.9-1.3) APTT 31 (25.1-36.5) SECONDS Sodium 139 (137-145) mmol/L Potassium 4.2 (3.4-5.1) mmol/L Chloride 107 (98-107) mmol/L Carbon Dioxide 28 (22-32) mmol/L BUN 22 H (7-17) mg/dL Creatinine 0.56 (0.52-1.04) mg/dL Estimated GFR > 60 (>60) mL/min BUN/Creatinine Ratio 39.3 H (6-22) Glucose 121 H (80-110) mg/dL Calcium 8.8 (8.4-10.2) mg/dL Total Bilirubin 0.4 (0.2-1.3) mg/dL AST 25 (14-36) IU/L ALT 21 (<35) IU/L Alkaline Phosphatase 74 (38-126) U/L Total Protein 7.0 (6.3-8.2) g/dL Albumin 3.9 (3.5-5.0) g/dL Globulin 3.1 (1.7-4.1) g/dL Albumin/Globulin Ratio 1.3 (1.0-2.8) Blood Type B Positive Antibody Screen Negative MDM Narrative Medical decision making narrative: Patient's hip x-ray shows obvious fracture at the right oblique intertrochanteric fracture, patient is neurovascularly intact. Spoke with orthopedic surgery, Dr. Crockett who recommends surgery. NPO after midnight. Patient was placed and nonviolent restraints as she kept pulling at things. Patient had line placed, pain medications. Has been at bedside agreeable for interventions. Labs, white count of 9 hemoglobin of 12 platelets of 262. Electrolytes are otherwise appropriate BUN 22, glucose of 121. Formal read on x-ray, Spoke with Dr Ryan who accepts for admission. Dr. Lozada - chart accessed by myself to place clinical impression for nursing staff. I did not have any interaction with this patient. Discharge Plan Departure Patient Disposition: Admitted As Inpatient Clinical Impression: Closed intertrochanteric fracture Admit Date/Time: 05/20/24 18:33 Admit Provider: Jay Ryan
--- NOTE | 2024-05-20 17:37 | PC.NURSE ---
RN placed PIV in left AC. Pt immediately tried to remove IV. Pt given pain medications to try and help with pain and increased agitation. Pt still attempting to remove IV after comfort measures initiated. At 1725, pt was placed in soft limb nonviolent restraints on bilateral upper extremities. Dr. Patiño notifed. Waiting for order for soft limb non violent restraints. Will attempt to removed restraint as soon as possible.
[2024-05-20 17:46] LABS: Add Manual Diff / Slide Review NO; Basophils Absolute Auto 0 /uL (0-100); Basophils Percent Auto 0.3 % (0-2); Eosinophils Absolute Auto 200 /uL (0-450); Eosinophils Percent Auto 1.8 % (2-4); Hematocrit 35.9 % (36-46); Lymphocytes Absolute Auto 2600 /uL (1100-4500); Lymphocytes Percent Auto 27.8 % (25-40); Mean Corpuscular HGB Conc 33.3 % (30-36); Mean Corpuscular Hemoglobin 30.8 PG (26-34); Mean Corpuscular Volume 92.4 fL (80-100); Monocytes Absolute Auto 900 /uL (0-900); Monocytes Percent Auto 9.3 % (3-14); Neutrophils Absolute Auto 5600 /uL (1500-7000); Neutrophils Percent Auto 60.8 % (50-75); Platelet Count 262 X10^3/uL (150-400); Red Blood Cell Count 3.89 X10^6/uL (4.0-5.2); Red Cell Distribution Width 13.5 % (11.6-14.8); White Blood Cell Count 9.3 X10^3/uL (4.5-11.0)
[2024-05-20 17:54] LABS: Prothrombin Time 11.1 SECONDS (9.4-12.5)
[2024-05-20 17:57] LABS: PTT Partial Thromboplastin Tim 31 SECONDS (25.1-36.5)
[2024-05-20 18:01] LABS: Alanine Aminotransferase 21 IU/L (<35); Albumin 3.9 g/dL (3.5-5.0); Albumin Globulin Ratio 1.3 (1.0-2.8); Alkaline Phosphatase 74 U/L (38-126); Aspartate Aminotransferase 25 IU/L (14-36); BUN Creatinine Ratio 39.3 (6-22); Bilirubin Total 0.4 mg/dL (0.2-1.3); Blood Urea Nitrogen 22 mg/dL (7-17); Calcium 8.8 mg/dL (8.4-10.2); Carbon Dioxide 28 mmol/L (22-32); Chloride 107 mmol/L (98-107); Estimated Glomerular Filt Rate > 60 mL/min (>60); Globulin 3.1 g/dL (1.7-4.1); Glucose 121 mg/dL (80-110); HEMOLYSIS < 15 (0-50); Potassium 4.2 mmol/L (3.4-5.1); Sodium 139 mmol/L (137-145)
--- NOTE | 2024-05-20 18:24 | P.HP_ITS ---
History of Present Illness History of Present Illness Date Patient Seen: 05/20/24 Chief complaint: GLF/R femur pain Narrative: From ED doctor: 89-year-old female with history of dementia, osteoporosis who has had falls in the past who presents with complaint of falling out of her wheelchair. Patient was at her facility staff state she slipped out of her chair. Do not describe hitting her head. They noted that her leg looked deformed and called EMS. Patient has been acting like she is painful and does not want her leg touched. She can give her name but does not answer questions overall although she is conversant. Per EMS she is at baseline in his typically noncompliant with the workups or imaging according to prior visits as well. at bedside states no anticoagulants does take medication for sleep and her dementia. Has adverse reactions to Haldol, quetiapine. No tobacco occasional alcohol, no recreational drugs. ED Course: Admitted with a fall and hip pain, diagnosed with hip fracture. Orthopedics was consulted. S: She was unable to provide history due to severe cognitive impairment from dementia. Her and daughter at the bedside. They note she was in a memory care unit and is quite ambulatory without a walker. This is her 2nd fall in several weeks. The 1st led to a broken nose. They believe that they would she was to have the hip repaired. She does have a POLST, but they are unsure what it says her what her wishes are for resuscitation. [facility] Medical History Insomnia Age-related osteoporosis without current pathological fracture Do not resuscitate Fractures (~1997) Measles Chicken pox Hearing loss (~1949) History of urinary incontinence (~2007) Fecal incontinence (~2020) Skin cancer (~2011) Depression, recurrent Essential hypertension Alzheimer's dementia (~2014) Pessary maintenance Presence of pessary Healthy adult Surgical History No pertinent past surgical history Family History Father Pneumonia Brother Cancer Grandfather History of heart disease Social History household members: spouse Smoking Status: Never smoker alcohol intake: current Meds Home Medications and Allergies Home Medications Medication Instructions Recorded Confirmed Type multivitamin 1 tab PO QNOON 07/29/18 12/07/23 History Disabled Parking Permit 1 ea Not Applicable DAILY #1 ea 11/17/22 12/07/23 Rx trazodone 50 mg tablet 25 mg (1/2 x 50 mg) PO BEDTIME PRN 12/08/22 12/07/23 Rx sleep #60 tabs docusate sodium 100 mg capsule 100 mg PO DAILY 11/23/23 12/07/23 History hydrocodone 5 mg-acetaminophen 325 1 tab PO Q4H PRN Pain, Moderate 11/23/23 12/07/23 History mg tablet paroxetine HCl 10 mg tablet 20 mg PO DAILY 11/23/23 12/07/23 History psyllium husk (with sugar) 2 gram 2 wafer PO DAILY 11/23/23 12/07/23 History oral wafer (Metamucil Fiber Thin) Allergies Allergy/AdvReac Type Severity Reaction Status Date / Time haloperidol AdvReac Intermediate agitation Verified 12/07/23 15:03 quetiapine AdvReac Intermediate confusion, Verified 12/07/23 15:03 agitation capsules AdvReac Intermediate unable to Uncoded 04/25/24 02:42 take capsules Review of Systems Review of Systems Narrative: All else reviewed and otherwise unremarkable except as noted in the history and physical. Exam Vital Signs (past 8 hours): - 05/20/24 16:56 05/20/24 17:28 05/20/24 17:30 Temperature 97.4 F L Pulse Rate 70 59 L 54 L Respiratory Rate 18 Blood Pressure 127/82 Pulse Oximetry 99 97 95 Oxygen Delivery Method Room Air Room Air 05/20/24 17:56 05/20/24 17:56 05/20/24 18:00 Temperature Pulse Rate 54 L 61 Respiratory Rate Blood Pressure 189/110 H Pulse Oximetry 96 96 Oxygen Delivery Method 05/20/24 18:13 05/20/24 18:13 Temperature Pulse Rate 57 L Respiratory Rate Blood Pressure 146/77 H Pulse Oximetry 97 Oxygen Delivery Method Oxygen Delivery Method Room Air Narrative Exam Narrative: NAD, awake but not really able to interact. Normocephalic skull, EOMI, anicteric sclera, symmetric pupils. Oropharynx unremarkable, no droop. Neck supple, midline trachea, no adenopathy. Lungs clear, normal rate and effort. Heart regular, no murmur gallop or rub. Abdomen is soft, non distended and non tender. Extremities are free of edema. Skin is free of rash or lesions. Joints are not swollen or deformed. Objective Imaging Hip X-ray: : My impression: Patient has a subtrochanteric fracture which is displaced on the right hip. Labs 05/20/24 17:14 05/20/24 17:14 Labs: Laboratory Results - last 24 hr 05/20/24 17:14 WBC 9.3 RBC 3.89 L Hgb 12.0 Hct 35.9 L MCV 92.4 MCH 30.8 MCHC 33.3 RDW 13.5 Plt Count 262 Neut % (Auto) 60.8 Lymph % (Auto) 27.8 [place] % (Auto) 9.3 Eos % (Auto) 1.8 L Baso % (Auto) 0.3 Neut # (Auto) 5600 Lymph # (Auto) 2600 [place] # (Auto) 900 Eos # (Auto) 200 Baso # (Auto) 0 PT 11.1 INR 1.0 APTT 31 Sodium 139 Potassium 4.2 Chloride 107 Carbon Dioxide 28 BUN 22 H Creatinine 0.56 Estimated GFR > 60 BUN/Creatinine Ratio 39.3 H Glucose 121 H Calcium 8.8 Total Bilirubin 0.4 AST 25 ALT 21 Alkaline Phosphatase 74 Total Protein 7.0 Albumin 3.9 Globulin 3.1 Albumin/Globulin Ratio 1.3 Assessment & Plan Assessment & Plan narrative: 1. Right hip fracture, present on admission and active. 2. Hypertension, present on admission and active. 3. Dementia, present on admission and active. Plan: -NPO, ortho was consulted for operative repair. -aspirin b.i.d. for DVT prophylaxis. -analgesia. -IVF Inpatient status, expect 2 night stay. is a proxy decision maker. Time-Based Coding :: 25 min spent with patient and on the chart (including review of chart, obtaining history, exam, reviewing outside data, placing orders, documenting exam and treatment plan, and counseling patient) on 05/20. Quality MIPS - Admit I confirm the patient?s Advance Care Plan is present, Code status is documented, Surrogate decision maker is in patient?s record [If Yes, STOP here]: Yes MIPS - Meds 'Current medications' to include all prescriptions, [id number] products, herbals, cannabis/cannabidiol products, and vitamin/mineral/dietary (nutritional) supplements. I have utilized all available resources to obtain, update, or review the patient?s current medications. [If Yes, STOP here]: Yes
[2024-05-20] MEDS: SODIUM CHLORIDE 0.45% 1,000 ML 100 ML IV (18:58)
[2024-05-20] MEDS: ONDANSETRON 4 MG/2 ML INJ IV (19:14)
[2024-05-20] MEDS: HYDROMORPHONE 0.5 MG INJ IV (19:14)
--- NOTE | 2024-05-20 19:47 | PC.NURSE ---
at 1931 patients sats dropped to 86%, this RN placed her on 4L NC to maintain her sats above 92%. While trying to place the NC the patient became very agitated and displaced her IV, hospitalist was notified and he ordered the IV to be discontinued until her surgery tomorrow 05/21
[2024-05-21] VITALS (10 sets, daily range): BP systolic 105–127; BP diastolic 37–75; PULSE 64–82; RESP 12–22; TEMP 36.1–36.9; O2SAT 93–98; BMI 23.8
--- NOTE | 2024-05-21 | DI.RAD.S_ITS ---
PROCEDURE: XR FEMUR RT MIN 2V INDICATIONS: ORIF TECHNIQUE: 5 intraoperative fluoroscopic views of the femur were acquired. COMPARISON: [facility], CR, XR HIP W PEL IF DONE RT 2V, 05/20/2024, 16:57. FINDINGS: Intraoperative fluoroscopic images shows internal fixation of right femur with intramedullary sav and dynamic screws in place. IMPRESSION: Post ORIF changes in right femur with anatomic alignment. Dictated by: Dusty Sykes M.D. on 05/21/2024 at 18:14 Approved by: Dusty Sykes M.D. on 05/21/2024 at 18:14
[2024-05-21 06:42] LABS: Add Manual Diff / Slide Review NO; Basophils Absolute Auto 0 /uL (0-100); Basophils Percent Auto 0.1 % (0-2); Eosinophils Absolute Auto 0 /uL (0-450); Eosinophils Percent Auto 0.1 % (2-4); Hemoglobin 9.8 g/dL (12.0-16.0); Lymphocytes Absolute Auto 1500 /uL (1100-4500); Mean Corpuscular HGB Conc 33.7 % (30-36); Mean Corpuscular Hemoglobin 30.9 PG (26-34); Mean Corpuscular Volume 91.8 fL (80-100); Monocytes Absolute Auto 1000 /uL (0-900); Monocytes Percent Auto 12.2 % (3-14); Neutrophils Absolute Auto 5600 /uL (1500-7000); Neutrophils Percent Auto 68.6 % (50-75); Platelet Count 236 X10^3/uL (150-400); Red Blood Cell Count 3.16 X10^6/uL (4.0-5.2); Red Cell Distribution Width 13.7 % (11.6-14.8); White Blood Cell Count 8.1 X10^3/uL (4.5-11.0)
[2024-05-21 07:00] LABS: BUN Creatinine Ratio 44.7 (6-22); Blood Urea Nitrogen 21 mg/dL (7-17); Calcium 8.4 mg/dL (8.4-10.2); Carbon Dioxide 27 mmol/L (22-32); Chloride 106 mmol/L (98-107); Estimated Glomerular Filt Rate > 60 mL/min (>60); Glucose 133 mg/dL (80-110); HEMOLYSIS < 15 (0-50); Potassium 3.9 mmol/L (3.4-5.1); Sodium 136 mmol/L (137-145)
--- NOTE | 2024-05-21 07:08 | P.PN_ITS ---
Subjective Subjective Interval history: Summary: Admitted with a hip fracture after an ambulatory fall. Severe dementia. Plan is for operative repair. Subjective: No issues overnight, she was nonverbal and we will have her surgery today. Met with the at bedside. Exam Vital Signs (past 8 hours): - 05/21/24 06:00 Temperature 98.4 F Pulse Rate 70 Respiratory Rate 16 Blood Pressure 126/70 Pulse Oximetry 96 Oxygen Flow Rate 0 Fraction of Inspired Oxygen 28 SaO2/FiO2 Ratio 357 Oxygen Delivery Method Nasal Cannula Oxygen Flow Rate 0 Narrative Exam Narrative: NAD, awake. Non-verbal. Lungs are clear, normal rate and effort. Heart is regular, no murmur gallop or rub. Abdomen is soft, non distended. Extremities are free of edema. Objective Labs 05/21/24 06:25 05/21/24 06:25 Labs: Laboratory Results - last 24 hr 05/20/24 05/21/24 17:14 06:25 WBC 9.3 8.1 RBC 3.89 L 3.16 L Hgb 12.0 9.8 L Hct 35.9 L 29.0 L MCV 92.4 91.8 MCH 30.8 30.9 MCHC 33.3 33.7 RDW 13.5 13.7 Plt Count 262 236 Neut % (Auto) 60.8 68.6 Lymph % (Auto) 27.8 19.0 L [place] % (Auto) 9.3 12.2 Eos % (Auto) 1.8 L 0.1 L Baso % (Auto) 0.3 0.1 Neut # (Auto) 5600 5600 Lymph # (Auto) 2600 1500 [place] # (Auto) 900 1000 H Eos # (Auto) 200 0 Baso # (Auto) 0 0 PT 11.1 INR 1.0 APTT 31 Sodium 139 136 L Potassium 4.2 3.9 Chloride 107 106 Carbon Dioxide 28 27 BUN 22 H 21 H Creatinine 0.56 0.47 L Estimated GFR > 60 > 60 BUN/Creatinine Ratio 39.3 H 44.7 H Glucose 121 H 133 H Calcium 8.8 8.4 Total Bilirubin 0.4 AST 25 ALT 21 Alkaline Phosphatase 74 Total Protein 7.0 Albumin 3.9 Globulin 3.1 Albumin/Globulin Ratio 1.3 Blood Type B Positive Antibody Screen Negative [facility] Medical History Insomnia Age-related osteoporosis without current pathological fracture Do not resuscitate Fractures (~1997) Measles Chicken pox Hearing loss (~1949) History of urinary incontinence (~2007) Fecal incontinence (~2020) Skin cancer (~2011) Depression, recurrent Essential hypertension Alzheimer's dementia (~2014) Pessary maintenance Presence of pessary Healthy adult Surgical History No pertinent past surgical history Family History Father Pneumonia Brother Cancer Grandfather History of heart disease Social History household members: none Smoking Status: Never smoker alcohol intake: current Assessment & Plan Assessment & Plan narrative: 1. Right hip fracture, present on admission and active. 2. Hypertension, present on admission and active. 3. Dementia, present on admission and active. Plan: -NPO, ortho was consulted for operative repair. -aspirin b.i.d. for DVT prophylaxis. -analgesia. -IVF Restraints are in place and wrist as she was interfering with care by removing her IV or threatening to attempt to her IV which is needed for pain medications and surgery today. Inpatient status, expect 2 night stay. is a proxy decision maker. Time-Based Coding :: 20 min spent with patient and on the chart (including review of chart, obtaining history, exam, reviewing outside data, placing orders, documenting exam and treatment plan, and counseling patient) on 05/21.
--- NOTE | 2024-05-21 09:05 | P.CONS_ITS ---
History of Present Illness Consult details Date Patient Seen: 05/21/24 Time Patient Seen: 09:05 Chief complaint: right hip pain Requesting provider: Jay Ryan Narrative: Ms. Ariza is a 89 yo F with ground level fall and sustained a right hip fracture. She was seen in ER and work up showed a displaced proximal femur fracture. Orthopedic service was consulted. Patient lives at the [facility] and does ambulate daily there. Patient has advanced dementia. Meds Home Medications and Allergies Home Medications Medication Instructions Recorded Confirmed Type multivitamin 1 tab PO QNOON 07/29/18 05/20/24 History Disabled Parking Permit 1 ea Not Applicable DAILY #1 ea 11/17/22 05/20/24 Rx trazodone 50 mg tablet 25 mg (1/2 x 50 mg) PO BEDTIME PRN 12/08/22 05/20/24 Rx sleep #60 tabs docusate sodium 100 mg capsule 100 mg PO DAILY 11/23/23 05/20/24 History hydrocodone 5 mg-acetaminophen 325 1 tab PO Q4H PRN Pain, Moderate 11/23/23 05/20/24 History mg tablet lorazepam 0.5 mg tablet 0.5 mg PO PRN PRN Anxiety 05/20/24 05/20/24 History paroxetine HCl 10 mg tablet 10 mg PO DAILY 05/20/24 05/20/24 History Allergies Allergy/AdvReac Type Severity Reaction Status Date / Time haloperidol AdvReac Intermediate agitation Verified 12/07/23 15:03 quetiapine AdvReac Intermediate confusion, Verified 12/07/23 15:03 agitation capsules AdvReac Intermediate unable to Uncoded 04/25/24 02:42 take capsules Exam Vital Signs (past 8 hours): - 05/21/24 06:00 Temperature 98.4 F Pulse Rate 70 Respiratory Rate 16 Blood Pressure 126/70 Pulse Oximetry 96 Oxygen Flow Rate 0 Fraction of Inspired Oxygen 28 SaO2/FiO2 Ratio 357 Oxygen Delivery Method Nasal Cannula Oxygen Flow Rate 0 Extrem Other: RLE is shortened, externally rotated. Neurovascularly intact with movement in right foot and toes, light touch intact. Objective Imaging x-ray hip: My impression: Right hip with displaced intertroch reverse oblique fracture. Labs 05/21/24 06:25 05/21/24 06:25 Labs: Laboratory Results - last 24 hr 05/20/24 05/21/24 17:14 06:25 WBC 9.3 8.1 RBC 3.89 L 3.16 L Hgb 12.0 9.8 L Hct 35.9 L 29.0 L MCV 92.4 91.8 MCH 30.8 30.9 MCHC 33.3 33.7 RDW 13.5 13.7 Plt Count 262 236 Neut % (Auto) 60.8 68.6 Lymph % (Auto) 27.8 19.0 L [place] % (Auto) 9.3 12.2 Eos % (Auto) 1.8 L 0.1 L Baso % (Auto) 0.3 0.1 Neut # (Auto) 5600 5600 Lymph # (Auto) 2600 1500 [place] # (Auto) 900 1000 H Eos # (Auto) 200 0 Baso # (Auto) 0 0 PT 11.1 INR 1.0 APTT 31 Sodium 139 136 L Potassium 4.2 3.9 Chloride 107 106 Carbon Dioxide 28 27 BUN 22 H 21 H Creatinine 0.56 0.47 L Estimated GFR > 60 > 60 BUN/Creatinine Ratio 39.3 H 44.7 H Glucose 121 H 133 H Calcium 8.8 8.4 Total Bilirubin 0.4 AST 25 ALT 21 Alkaline Phosphatase 74 Total Protein 7.0 Albumin 3.9 Globulin 3.1 Albumin/Globulin Ratio 1.3 Blood Type B Positive Antibody Screen Negative [facility] Medical History Insomnia Age-related osteoporosis without current pathological fracture Do not resuscitate Fractures (~1997) Measles Chicken pox Hearing loss (~1949) History of urinary incontinence (~2007) Fecal incontinence (~2020) Skin cancer (~2011) Depression, recurrent Essential hypertension Alzheimer's dementia (~2014) Pessary maintenance Presence of pessary Healthy adult Surgical History No pertinent past surgical history Family History Father Pneumonia Brother Cancer Grandfather History of heart disease Social History household members: spouse Tobacco & Substance Use Smoking Status: Never smoker alcohol intake: current Assessment & Plan Assessment & Plan narrative: I discussed my findings with patient's , her POA. Risks for surgery include but not limited to bleeding, infection, nerve/blood vessel injury, need for blood transfusion, additional fracture, non-union, mal- union, hardware complications, even . Patient's understands and would like her to proceed with planned emergency surgery. Patient is scheduled for right femur ORIF with cephalomedullary device. Time-Based Coding :: [TOTAL MINUTES] spent with patient and on the chart (including review of chart, obtaining history, exam, reviewing outside data, placing orders, documenting exam and treatment plan, and counseling patient) on [DATE].
[2024-05-21] MEDS: HYDROMORPHONE 0.5 MG INJ IV ×2 (11:49→20:38)
--- NOTE | 2024-05-21 13:43 | CM.DANOTE ---
Initial DCP Assessment Visit Note Reviewed EMR and team rounds for status updates. Met with pt's at bedside to introduce self and role, pt was found to be slightly agitated in bed, staring non-intentionally at the ceiling, in soft restraints at the time to prevent her from pulling on her IV line. Pt has advanced dementia, resides at [facility], her lives independently in their home here in [address] as well. Plan will be for SNF rehab ([facility] is preference), then back to [facility] once stable. Facility will transport at d/c. Payor: KIM Medicare PCP: Shahida Monroe Pt is a 89 year-old F with advanced dementia and osteoporosis. She is ambulatory at baseline, does not use a walker, and reportedly spends much of the time during the day at the facility wandering around, needing to be busy. She presented to the ED via EMS yesterday evening after staff found her outside her room on the floor, curled up in a position. When they lifted her up, they saw that her leg appeared distorted and called 911. Pt does not historically do well with imaging, as she is fidgety and cannot follow instructions, however she was able to complete a hip x-ray which showed a complex R-hip fracture. Ortho was consulted, the plan was made to make her NPO and scheduled the surgery for hip fixation for today. Spouse is very attentive and usually visits pt daily. DCP will continue to follow and assist with her transition to SNF rehab. Will continue to monitor for additional, evolving needs prior to her eventual d/c. Discharge Planning/Care Management CM Discharge Assessment Start: 05/21/24 09:22 Freq: Status: Active Protocol: Document 05/21/24 09:22 DPL (Rec: 05/21/24 09:25 DPL [id number]) Discharge Planning Assessment Assigned Patent Agent KORY Joy Advance Directives? Yes Advance Directives on File Yes History Provided By Family Member,Medical Record Expected Length of Stay 3 Has Patient been admitted in last 30 No days? Prior Living Arrangements Assisted Living Comment [facility] Household Members none Type of transporation used prior to Relies on Others admit Facility Name Admitted From: [facility] Willing to Return to Facility? Yes Independent with ADL's No: Pt has advanced dementia. Is patient alert and oriented? No Needs Assistance With Bathing,Eating,Grooming,Meal Prep,Toileting,Managing Medications,Home Chores / Shopping Caregiver for Another No DME Already Rented / Owned Wheelchair Comment Back to [facility] . Barriers to Discharge No Discharge Plan Assisted Living Facility Transportation Arrangement Facility Referrals Initiated None needed Whiteboard Updated in Patient Room with Yes name and ext. # of Patent Agent Review Status In Process Please Provide Date Initial DC 05/21/24 Assessment Was Performed Document 05/21/24 13:43 DPL (Rec: 05/21/24 13:43 DPL [id number]) Discharge Planning Assessment Assigned Patent Agent KORY Joy Advance Directives? Yes Advance Directives on File Yes History Provided By Family Member,Medical Record Expected Length of Stay 3 Has Patient been admitted in last 30 No days? Prior Living Arrangements Assisted Living Comment [facility] Household Members none Type of transporation used prior to Relies on Others admit Facility Name Admitted From: [facility] Willing to Return to Facility? Yes Independent with ADL's No: Pt has advanced dementia. Is patient alert and oriented? No Needs Assistance With Bathing,Eating,Grooming,Meal Prep,Toileting,Managing Medications,Home Chores / Shopping Caregiver for Another No DME Already Rented / Owned Wheelchair Comment Back to [facility] . Barriers to Discharge No Discharge Plan Assisted Living Facility Transportation Arrangement Facility Referrals Initiated None needed Whiteboard Updated in Patient Room with Yes name and ext. # of Patent Agent Review Status In Process Please Provide Date Initial DC 05/21/24 Assessment Was Performed
[2024-05-21] MEDS: LACTATED RINGERS 1,000 ML 42 ML IV ×2 (15:20→17:55)
--- NOTE | 2024-05-21 15:21 | SUR.HOLD ---
Pt to Pre-op in bed with soft restraints in place to prevent IV line and banuelos removal. and dtr and bedside and Rn at bedside during pre-op period.
[2024-05-21] MEDS: CEFAZOLIN 2 GM/100 ML PREMIX 100 ML IV (16:00)
--- NOTE | 2024-05-21 16:07 | SUR.OPER ---
Supine on padded [place] table with bilateral legs secured in padded positioning boots and suspended in positioning spars, operative leg in traction per surgeon. Head on one pillow. Arm on non-operative side secured on padded armboard <90 degrees abduction. Arm on operative side padded and resting across chest then secured with tape over sheet. Padded perineal post in place per surgeon.
[2024-05-21] MEDS: ACETAMINOPHEN IV 1,000 MG/100 ML VIAL 400 MG IV (16:15)
[2024-05-21] MEDS: BUPIVACAINE 0.5% (PF) 30 ML, EPINEPHrine 0.15 MG INJ (17:55)
--- NOTE | 2024-05-21 17:58 | P.OP_ITS ---
Operative Date/Time/Diagnoses Date of procedure: 05/21/24 Time of procedure: 16:00 Pre-op diagnosis: 1. Right femur intertrochanteric fracture Post-op diagnosis: same Procedure & Clinicians Procedure: 1. Right proximal femur open reduction, internal fixation with intramedullary device with cephalomedullary attachement Same procedure as scheduled: Yes Indications: Ms. Ariza is a 89 yo F with chronic dementia had a ground level fall and sustained right femur reverse oblique intertrochanteric fracture that is significantly angulated and displaced. Patient was a frequent ambulator at her care facility. After discussing risks and benefits of surgery, informed consent was obtained from her , who has her power of inspector machined parts. Patient was scheduled for right femur ORIF with cephalomedullary nail device. Surgeon: Fabi Crockett Senior Grant Writer: Pili Galvan Click Yes if Unassisted: No Anesthesia Type: General Operative Notes Closure Type: primary Specimen(s): none sent Prosthetic devices, grafts, tissues, transplants, or devices: S&N intertan cephalomedullary nail with two proximal locking screws and one distal locking screw. Applied: catheter Estimated Blood Loss (mL): 100 Blood products transfused: none Procedure in detail: Patient was seen in the preoperative area. Risks and benefits of the surgery was discussed with the patient. Informed consent was obtained from the patient and placed in the chart. Surgical site was marked. Patient was taken to the operative room. General anesthesia was administered. Prophylactic antibiotic was given to the patient less than 30 min before the incision was made. Patient was placed into a supine position on the [place] table. Patient's hip was then prepped and draped in the sterile fashion. Time-out was performed at this time. Using the fracture table, a closed reduction maneuver was performed to the right proximal femur fracture. This was done by distracting internally rotating and adducting the right hip. After the fracture reduction was completed and confirmed with AP and lateral C-arm imaging, Patient's hip was then prepped and draped in the sterile fashion. A lateral incision was made over the fracture site in the proximal portion of the femur were the lesser troch and the femoral shaft are located. The fracture site was identified and debrided using the finger a [place] of hematoma and other fragments of bone as well as entrapped muscle tissue. The fracture was found to be more comminuted than the initial x-ray was showing. The proximal piece has more than 2 pieces along with the distal shaft fragment. After the manual debridement was performed by allow the fracture to be reduced a reduction clamp was used to clamp the fracture in a anterior to posterior fashion. A spiked ball pusher was used to push on the proximal lateral piece. AP and lateral imaging was taken and the fracture was reduced and maintained in the stable fashion. A 3 in incision just proximal to the greater trochanter was made on the lateral aspect of the patient's hip. Starting guidewire was inserted through the incision onto the greater trochanter. The guidewire was driven into the intramedullary canal and confirmed with AP and lateral C-arm imaging. The canal opening Reamer was used to open the canal from the proximal to distal fashion. Due to the unstable nature of the fracture along femoral nail was used after reaming up to the 11.5 mm. A 10 mm diameter nail measuring 380 mm was used after completing the reaming process. A 10 mm 380 mm length and 125 degree nail was assembled on the back table and inserted into the intramedullary canal from a proximal to distal fashion. The lateral targeting guide was used to place the cephalomedullary device by placing a lateral incision after targeting guide was used to measure the location of the incision. The fascia was incised in line with skin incision the targeting guide was inserted and docked onto the lateral aspect of the lateral cortex of the proximal femur and a guidewire was drilled through the lateral cortex into the femoral head through the femoral neck in the center location on both AP and lateral imaging. Depth gauge was used to measure the length of the cephalomedullary device a 95mm and 90 mm cephalomedullary pieces including a cephalomedullary screw as well as a compression screw was chosen and placed through the lateral cortex into the femoral head through the IM nail. AP and lateral imaging was used to confirm placement of both cephalomedullary screws. And good placement and stabilization of the fracture was accomplished using the cephalomedullary device with a appropriate tip apex distance. A distal locking screw was then placed using the perfect ione technique and C- arm imaging while drilling in bicortical fashion. Depth gauge was used to measure the length. 45 mm screw was inserted. After all the hardware was placed, AP and lateral C-arm imaging was used to confirm placement of the hardware and reduction of the fracture. Good placement of the hardware and good reduction of the fracture was confirmed. The wound was then irrigated with sterile normal saline. The deep fascia was closed with 1-0 Vicryl, subcutaneous tissue was closed with 2-0 Vicryl and skin was closed with skin shmuel. Sterile dressing was applied the patient's skin and patient was woken up from sedation and transferred to recovery room stable condition. The Operation could not have been safely performed without compromising the technical result or length of the procedure, without the assistance of a skilled surgical services coordinator. The surgical services coordinator was medically necessary for proper positioning, retraction and manipulation of instruments, proper exposure, surgical preparation, and manipulation of tissue. Complications: none Post-operative Condition: stable Disposition: PACU Plan for aftercare: Admit to inpatient hospital
[2024-05-22] VITALS (10 sets, daily range): BP systolic 112–142; BP diastolic 46–71; PULSE 71–109; RESP 18–20; TEMP 36.6–38.9; O2SAT 92–108
[2024-05-22] MEDS: SODIUM CHLORIDE 0.45% 1,000 ML 100 ML IV (01:52)
[2024-05-22] MEDS: HYDROMORPHONE 0.5 MG INJ IV (06:10)
[2024-05-22 06:57] LABS: Add Manual Diff / Slide Review NO; Basophils Absolute Auto 0 /uL (0-100); Basophils Percent Auto 0.2 % (0-2); Eosinophils Absolute Auto 0 /uL (0-450); Eosinophils Percent Auto 0.7 % (2-4); Hematocrit 21.5 % (36-46); Hemoglobin 7.3 g/dL (12.0-16.0); Lymphocytes Absolute Auto 1400 /uL (1100-4500); Mean Corpuscular HGB Conc 34.1 % (30-36); Mean Corpuscular Hemoglobin 31.3 PG (26-34); Mean Corpuscular Volume 91.9 fL (80-100); Monocytes Absolute Auto 1000 /uL (0-900); Monocytes Percent Auto 15.1 % (3-14); Neutrophils Absolute Auto 4400 /uL (1500-7000); Platelet Count 182 X10^3/uL (150-400); Red Blood Cell Count 2.34 X10^6/uL (4.0-5.2); Red Cell Distribution Width 13.5 % (11.6-14.8); White Blood Cell Count 6.8 X10^3/uL (4.5-11.0)
[2024-05-22 07:07] LABS: BUN Creatinine Ratio 21.6 (6-22); Blood Urea Nitrogen 11 mg/dL (7-17); Calcium 7.7 mg/dL (8.4-10.2); Carbon Dioxide 28 mmol/L (22-32); Chloride 108 mmol/L (98-107); Estimated Glomerular Filt Rate > 60 mL/min (>60); Glucose 123 mg/dL (80-110); HEMOLYSIS < 15 (0-50); Potassium 4.2 mmol/L (3.4-5.1); Sodium 137 mmol/L (137-145)
--- NOTE | 2024-05-22 07:47 | PM.PN.1 ---
Subjective Subjective Interval history: Summary: Admitted with a hip fracture after an ambulatory fall. Severe dementia. Plan was for operative S/P ORIF repair. Looking for SNF. Subjective: Nonverbal, moaning. Exam Vital Signs (past 8 hours): - 05/22/24 00:00 05/22/24 05:49 05/22/24 06:00 Temperature 97.8 F 98.4 F 98.4 F Pulse Rate 96 H 84 87 Respiratory Rate 20 18 19 Blood Pressure 112/46 L 128/46 L 128/46 L Pulse Oximetry 108 H 92 93 Oxygen Flow Rate 2 Fraction of Inspired Oxygen 28 SaO2/FiO2 Ratio 357 Oxygen Delivery Method Room Air Oxygen Flow Rate 2 Narrative Exam Narrative: Severely demented, nonsensical speech. Lungs are clear, normal rate and effort. Heart is regular, no murmur gallop or rub. Abdomen is soft, non distended. Extremities are free of edema. Objective Labs 05/22/24 06:45 05/22/24 06:45 Labs: Laboratory Results - last 24 hr 05/21/24 05/22/24 16:04 06:45 WBC 6.8 RBC 2.34 L Hgb 7.3 L Hct 21.5 L MCV 91.9 MCH 31.3 MCHC 34.1 RDW 13.5 Plt Count 182 Neut % (Auto) 64.0 Lymph % (Auto) 20.0 L [place] % (Auto) 15.1 H Eos % (Auto) 0.7 L Baso % (Auto) 0.2 Neut # (Auto) 4400 Lymph # (Auto) 1400 [place] # (Auto) 1000 H Eos # (Auto) 0 Baso # (Auto) 0 Sodium 137 Potassium 4.2 Chloride 108 H Carbon Dioxide 28 BUN 11 Creatinine 0.51 L Estimated GFR > 60 BUN/Creatinine Ratio 21.6 Glucose 123 H Calcium 7.7 L Blood Type B Positive Antibody Screen Negative [facility] Medical History Insomnia Age-related osteoporosis without current pathological fracture Do not resuscitate Fractures (~1997) Measles Chicken pox Hearing loss (~1949) History of urinary incontinence (~2007) Fecal incontinence (~2020) Skin cancer (~2011) Depression, recurrent Essential hypertension Alzheimer's dementia (~2014) Pessary maintenance Presence of pessary Healthy adult Surgical History No pertinent past surgical history Family History Father Pneumonia Brother Cancer Grandfather History of heart disease Social History household members: none Smoking Status: Never smoker alcohol intake: current Assessment & Plan Assessment & Plan narrative: 1. Right hip fracture S/P ORIF 05/21, present on admission and active. 2. Acute blood loss anemia secondary to fracture with hemoglobin of 7.3, new and active. 3. Hypertension, present on admission and active. 4. Dementia, present on admission and active. Plan: -diet. -monitor hemoglobin, blood product support if needed. Threshold is hemoglobin of 7.0. -aspirin b.i.d. for DVT prophylaxis. -analgesia. -IVF -anticipate discharge to group home facility, referral on process. PT eval. Restraints are in place and wrist as she was interfering with care by removing her IV or threatening to attempt to her IV which is needed for pain medications and surgery today. Inpatient status, expected 2 night stay. is a proxy decision maker. TISHA 05/23, SNF. Time-Based Coding :: 20 min spent with patient and on the chart (including review of chart, obtaining history, exam, reviewing outside data, placing orders, documenting exam and treatment plan, and counseling patient) on 05/22.
--- NOTE | 2024-05-22 07:57 | PM.PNPO.1 ---
Subjective Subjective Interval history: Tonia is a 89 year old female who is POD#1 s/p right hip IMN for a right hip intertrochanteric fracture. Very limited history d/t patient baseline severe cognitive impairment/dementia, not worse than baseline according to , she does not respond to most questions. Her is at bedside and able to provide some history. lives here in [place], daughter lives in [place], is here visiting but plans to return home soon. She was unable to work w/ PT today due to low H&H. Today H&H was 7.3 and 21.5. BP has been stable. Unable to answer ROS questions. Exam Vital Signs (past 8 hours): - 05/22/24 00:00 05/22/24 05:49 05/22/24 06:00 Temperature 97.8 F 98.4 F 98.4 F Pulse Rate 96 H 84 87 Respiratory Rate 20 18 19 Blood Pressure 112/46 L 128/46 L 128/46 L Pulse Oximetry 108 H 92 93 Oxygen Flow Rate 2 Fraction of Inspired Oxygen 28 SaO2/FiO2 Ratio 357 Oxygen Delivery Method Room Air Oxygen Flow Rate 2 Narrative Exam Narrative: Lying in bed during our interview today. Does not appear to be in any acute distress. calves soft, compressible and does not appear to be painful w/ palpation. Wiggles toes in response to stimuli at the bottom of her foot. DF and PF are intact. Post-surgical Aquacel dressing intact, mild bloody drainage. Resp Effort & Inspection: normal respiratory effort Psych Appearance: grossly normal Other: severe dementia Objective Labs 05/22/24 06:45 05/22/24 06:45 Labs: Laboratory Results - last 24 hr 05/21/24 05/22/24 16:04 06:45 WBC 6.8 RBC 2.34 L Hgb 7.3 L Hct 21.5 L MCV 91.9 MCH 31.3 MCHC 34.1 RDW 13.5 Plt Count 182 Neut % (Auto) 64.0 Lymph % (Auto) 20.0 L [place] % (Auto) 15.1 H Eos % (Auto) 0.7 L Baso % (Auto) 0.2 Neut # (Auto) 4400 Lymph # (Auto) 1400 [place] # (Auto) 1000 H Eos # (Auto) 0 Baso # (Auto) 0 Sodium 137 Potassium 4.2 Chloride 108 H Carbon Dioxide 28 BUN 11 Creatinine 0.51 L Estimated GFR > 60 BUN/Creatinine Ratio 21.6 Glucose 123 H Calcium 7.7 L Blood Type B Positive Antibody Screen Negative [facility] Medical History Insomnia Age-related osteoporosis without current pathological fracture Do not resuscitate Fractures (~1997) Measles Chicken pox Hearing loss (~1949) History of urinary incontinence (~2007) Fecal incontinence (~2020) Skin cancer (~2011) Depression, recurrent Essential hypertension Alzheimer's dementia (~2014) Pessary maintenance Presence of pessary Healthy adult Surgical History No pertinent past surgical history Family History Father Pneumonia Brother Cancer Grandfather History of heart disease Social History household members: none Smoking Status: Never smoker alcohol intake: current Assessment & Plan Post-op Postoperative Procedures: Procedures Operation Date: 05/21/24 14:45 Actual Procedure Side Surgeon p Intramedullary Nailing Hip Right Fabi Crockett MD Postoperative plan narrative: 1) Discharge disposition per medicine, likely SNF. 2) Continue multimodal pain management with ice to the hip for additional pain control if needed. 3) DVT prophylaxis per medicine recommendation. 4) Will continue to monitor H&H, if H&H improved and patient asx she can work w/ PT, WBAT. 5) Keep dressing intact, clean, dry until 2 week postop appointment. No soaking the incision site in pools or tubs. No topical ointments or creams to the incision site. 6) Follow up at [facility] orthopedics in 2 weeks for a postop appointment and wound check. Call our office if any questions or concerns arise.
--- NOTE | 2024-05-22 10:26 | CM.DPC ---
DCP Cont. Reviewed EMR and team rounds for status updates. Mohinder is reviewing for SNF rehab, they are waiting on PT notes to see if pt will be a risk for exit seeking or be able to follow PT instructions. PT will plan to see and evaluate pt at some point today, monitor closely.
--- NOTE | 2024-05-22 10:38 | PT-IP ANOTE ---
Pt discussed in rounds and order received. Pt s/p hip fracture and ORIF. There is no WB in orders or op note but PA note reports WBAT. Reviewed labs and HGB dropped from 9.3 to 7.3 today. PT looks in on pt who is restrained, nearby, and pt with eyes closed and humming fainting. PT speaks with nsg who states that labs will be taken again at 1400 today. Will hold PT until HGB re-checked/is stable and as pt appropriate and participatory with therapy.
--- NOTE | 2024-05-22 16:57 | DI.RAD.S_ITS ---
PROCEDURE: XR CHEST 1V INDICATIONS: fever TECHNIQUE: One view of the chest was acquired. COMPARISON: None. FINDINGS: Surgical changes and devices: None. Lungs and pleura: Lungs are clear. No pleural effusions or pneumothorax. Mediastinum: Mediastinal contours appear normal. The heart is slightly enlarged. There is calcification and tortuosity in the aorta. Hiatal hernia is present. Bones and chest wall: No suspicious bony lesions. Overlying soft tissues appear unremarkable. IMPRESSION: Mild cardiomegaly. Hiatal hernia. Dictated by: Douglas Camara M.D. on 05/22/2024 at 17:26 Approved by: Douglas Camara M.D. on 05/22/2024 at 17:28
[2024-05-22] MEDS: ACETAMINOPHEN 325 MG TABLET 650 MG PO (17:01)
[2024-05-22 17:51] LABS: Appearance Urine UA CLEAR; Bilirubin Urine UA NEGATIVE (NEGATIVE); Color Urine UA YELLOW; Glucose Urine UA NEGATIVE (Negative); Ketones Urine UA 1+ (NEGATIVE); Leukocyte Esterase Urine UA 1+ (NEGATIVE); Nitrite Urine UA NEGATIVE (Negative); Occult Blood Urine UA 1+ (Negative); Protein Urine UA 1+ (Negative)
[2024-05-22 17:58] LABS: Urine Volume 10mL (spun)
[2024-05-22 17:59] LABS: Bacteria Urine Moderate (10-30); Culture Indicated Urine Specimen Cultured; RBC Urine 1-5/HPF (0-5/HPF); Squamous Epithelial Cell Urine 1-5 /HPF (0-5/HPF); WBC Urine 5-10/HPF (0-5/HPF)
[2024-05-22] MEDS: cefTRIAXone 1,000 MG in SODIUM CHLORIDE 0.9% 100 ML 200 MG IV (18:40)
[2024-05-23] VITALS (8 sets, daily range): BP systolic 126–192; BP diastolic 40–108; PULSE 73–128; RESP 12–20; TEMP 36.1–37.6; O2SAT 93–100
[2024-05-23 06:43] LABS: Add Manual Diff / Slide Review NO; Basophils Absolute Auto 0 /uL (0-100); Basophils Percent Auto 0.3 % (0-2); Eosinophils Absolute Auto 0 /uL (0-450); Eosinophils Percent Auto 0.4 % (2-4); Lymphocytes Absolute Auto 1600 /uL (1100-4500); Lymphocytes Percent Auto 20.9 % (25-40); Mean Corpuscular Hemoglobin 31.2 PG (26-34); Mean Corpuscular Volume 91.8 fL (80-100); Monocytes Absolute Auto 1200 /uL (0-900); Monocytes Percent Auto 15.6 % (3-14); Neutrophils Absolute Auto 4800 /uL (1500-7000); Neutrophils Percent Auto 62.8 % (50-75); Platelet Count 196 X10^3/uL (150-400); Red Blood Cell Count 2.22 X10^6/uL (4.0-5.2); Red Cell Distribution Width 13.4 % (11.6-14.8); White Blood Cell Count 7.7 X10^3/uL (4.5-11.0)
[2024-05-23 06:45] LABS: BUN Creatinine Ratio 20.5 (6-22); Blood Urea Nitrogen 9 mg/dL (7-17); Calcium 7.8 mg/dL (8.4-10.2); Carbon Dioxide 27 mmol/L (22-32); Chloride 107 mmol/L (98-107); Estimated Glomerular Filt Rate > 60 mL/min (>60); Glucose 125 mg/dL (80-110); HEMOLYSIS < 15 (0-50); Hemoglobin 6.9 g/dL (12.0-16.0); Potassium 3.5 mmol/L (3.4-5.1); Sodium 136 mmol/L (137-145)
[2024-05-23 06:46] LABS: Hematocrit 20.4 % (36-46)
--- NOTE | 2024-05-23 07:23 | PM.PN.1 ---
Subjective Subjective Date Patient Seen: 05/23/24 Time Patient Seen: 09:50 Interval history: Tonia is a 89 year old female who is POD#2 s/p right hip IMN for a right hip intertrochanteric fracture. No new events overnight. Her Danny is at bedside. Her daughter Michelle is visiting from [place] but planning to return home in the next day. She is more anemic with hematocrit 20% today. No obvious bleeding or new events. Exam Vital Signs (past 8 hours): - 05/23/24 00:00 05/23/24 06:00 Temperature 98.3 F 98.1 F Pulse Rate 91 H 88 Respiratory Rate 20 20 Blood Pressure 146/82 H 138/78 Pulse Oximetry 95 100 Fraction of Inspired Oxygen 28 SaO2/FiO2 Ratio 357 Oxygen Delivery Method Room Air Oxygen Flow Rate 2 Narrative Exam Narrative: GENERAL: This is a well-nourished, well-developed patient, in no apparent distress, mildly drowsy but awakens, answers simple questions, pleasantly demented. EYES: Pupils equal round and reactive. Extraocular motions intact. No scleral icterus. No injection or drainage. ENT: Mucous membranes pink and moist. NECK: Trachea midline. No JVD, bruits or lymphadenopathy. Supple, nontender, no meningeal signs. CARDIOVASCULAR: Regular rate and rhythm with grade 2/6 systolic murmur RESPIRATORY: Clear to auscultation. GASTROINTESTINAL: Abdomen soft, non-tender, nondistended. EXTREMITIES: No clubbing, cyanosis, or edema. right hip bandage in place, clean, dry and intact. NEUROLOGIC: Alert, oriented to person only, speech fluent, full upper and lower motor strength, no focal deficits evident. DERMATOLOGIC: No rashes or skin lesions. Objective Labs 05/23/24 05:29 05/23/24 05:29 Labs: Laboratory Results - last 24 hr 05/22/24 05/22/24 05/22/24 06:45 14:51 17:42 WBC 6.8 RBC 2.34 L Hgb 7.3 L 7.0 L Hct 21.5 L 21.0 L MCV 91.9 MCH 31.3 MCHC 34.1 RDW 13.5 Plt Count 182 Neut % (Auto) 64.0 Lymph % (Auto) 20.0 L [place] % (Auto) 15.1 H Eos % (Auto) 0.7 L Baso % (Auto) 0.2 Neut # (Auto) 4400 Lymph # (Auto) 1400 [place] # (Auto) 1000 H Eos # (Auto) 0 Baso # (Auto) 0 Sodium Potassium Chloride Carbon Dioxide BUN Creatinine Estimated GFR BUN/Creatinine Ratio Glucose Calcium Urine Color Yellow Urine Appearance Clear Urine pH 6.0 Ur Specific [place] 1.020 Urine Protein 1+ H Urine Glucose (UA) Negative Urine Ketones 1+ H Urine Occult Blood 1+ H Urine Nitrate Negative Urine Bilirubin Negative Urine Urobilinogen 1.0 Ur Leukocyte Esterase 1+ H Urine RBC 1-5/hpf Urine WBC 5-10/hpf H Ur Squamous Epith Cells 1-5 /hpf Urine Bacteria Moderate (10-30) H Ur Culture Indicated? Specimen cultured Vol Urine Centrifuged 10ml (spun) 05/23/24 05:29 WBC 7.7 RBC 2.22 L Hgb 6.9 L* Hct 20.4 L* MCV 91.8 MCH 31.2 MCHC 34.0 RDW 13.4 Plt Count 196 Neut % (Auto) 62.8 Lymph % (Auto) 20.9 L [place] % (Auto) 15.6 H Eos % (Auto) 0.4 L Baso % (Auto) 0.3 Neut # (Auto) 4800 Lymph # (Auto) 1600 [place] # (Auto) 1200 H Eos # (Auto) 0 Baso # (Auto) 0 Sodium 136 L Potassium 3.5 Chloride 107 Carbon Dioxide 27 BUN 9 Creatinine 0.44 L Estimated GFR > 60 BUN/Creatinine Ratio 20.5 Glucose 125 H Calcium 7.8 L Urine Color Urine Appearance Urine pH Ur Specific [place] Urine Protein Urine Glucose (UA) Urine Ketones Urine Occult Blood Urine Nitrate Urine Bilirubin Urine Urobilinogen Ur Leukocyte Esterase Urine RBC Urine WBC Ur Squamous Epith Cells Urine Bacteria Ur Culture Indicated? Vol Urine Centrifuged [facility] Medical History Insomnia Age-related osteoporosis without current pathological fracture Do not resuscitate Fractures (~1997) Measles Chicken pox Hearing loss (~1949) History of urinary incontinence (~2007) Fecal incontinence (~2020) Skin cancer (~2011) Depression, recurrent Essential hypertension Alzheimer's dementia (~2014) Pessary maintenance Presence of pessary Healthy adult Surgical History No pertinent past surgical history Family History Father Pneumonia Brother Cancer Grandfather History of heart disease Social History household members: none Smoking Status: Never smoker alcohol intake: current Assessment & Plan Assessment & Plan narrative: 1. Right hip fracture S/P ORIF 05/21, present on admission and active. 2. Acute blood loss anemia secondary to fracture with hematocrit 20%, new and active. 3. Hypertension, present on admission and active. 4. Dementia, present on admission and active. Plan: -diet. -transfuse 1 unit packed red blood cell. -aspirin b.i.d. for DVT prophylaxis. -analgesia. -anticipate discharge to [facility] facility, referral on process. PT eval. Restraints are in place and wrist as she was interfering with care by removing her IV or threatening to attempt to her IV which is needed for pain medications and surgery today. Inpatient status, expected 2 night stay. is a proxy decision maker. TISHA 05/24, SNF. Time-Based Coding :: [TOTAL MINUTES] spent with patient and on the chart (including review of chart, obtaining history, exam, reviewing outside data, placing orders, documenting exam and treatment plan, and counseling patient) on [DATE]. PROFEE Charge codes Subsequent inpatient/observation care: [id number]
--- NOTE | 2024-05-23 09:26 | PT-IP ANOTE ---
PT eval received. EMR reviewed. pt s/p R hip ORIF and has Hgb: 6.9 and Hct: 20.4. Talked with nurse and pt just started blood transfusion. H&H will be redone after transfusion. Hold PT eval at this time. also informed nurse to clarify with ortho doctor regarding pt's weight bearing status. will f/u
--- NOTE | 2024-05-23 12:15 | CM.DPC ---
DCP Continued: Reviewed EMR and team rounds for pt?s medical status. Per rounds, PT/OT not able to meet with pt yesterday due to low H&H. Per RN, pt H&H was low and was ordered to receive blood transfusion this morning. [facility] still reviewing, pending therapies recommendations. Coni from [facility] spoke with DCP and discussed pt. It was reported that [facility] RN will be going on vacation until 06/02 and it would be preferrable if pt can go to rehab or other / care in the meantime for continuity of care. Admin kindly sent [facility] most recent Provider Progress note per their request. DCP entered room and met with pt, pt's daughter and . Per daughter, preference is for pt to be transferred to rehab in [place] only as pt's daughter will be returning to [place] on Sunday, 05/27 and this would be easier for pt's . Dtr's international number (+[phone] ). DCP reviewed plans of possible SNF after PT/OT evaluations, pt family agreeable with plan. Plan: Anticipating discharge to SNF, pending PT/OT recommendations; [facility] reviewing. CM Team will continue to follow for coordination of discharge plans. REMEDIOS Guy
--- NOTE | 2024-05-23 15:44 | PT-IP ANOTE ---
per nurse, H&H will not be rechecked until tomorrow. tasha hold PT until H&H result. will f/u.
--- NOTE | 2024-05-23 16:33 | PC.NURSE ---
Day shift note: 1 Unit PBRCs infused, no s/sx of transfusion reaction. Patient up in sitting position, dangled in bed. SCDs maintained while in bed. Adequate appetite, calm and humming through out day. Daughter and spouse at bedside providing supportive care. High fall risk precautions maintained.
[2024-05-23] MEDS: ACETAMINOPHEN 325 MG TABLET 650 MG PO (16:51)
--- NOTE | 2024-05-23 17:21 | P.PN_ITS ---
Subjective Subjective Interval history: Tonia is a 89 year old female who is POD#2 s/p right hip IMN for a right hip intertrochanteric fracture by Dr. Crockett. limited history d/t patients dementia, not worse than baseline according to , she does not respond to most questions. Her and daughter are at bedside and able to provide some history. They state patient was very mobile and active, walked often prior to the fall/surgery. lives here in [place], daughter lives in [place], is here visiting but plans to return home soon, next Sunday. Patients family is concerned her agitation is a sign of her pain but she is unable to verbalize well. She was unable to work w/ PT today due to low H&H. She does state she wants to get up/out several times. Yesterdays H&H was 7.3 and 21.5, todays H&H was 6.9 and 20.4. She received a blood transfusion this morning. BP has not been hypotensive. Unable to answer ROS questions. Exam Vital Signs (past 8 hours): - 05/23/24 09:39 05/23/24 12:00 Temperature 98.8 F 99.6 F Pulse Rate 73 114 H Respiratory Rate 17 20 Blood Pressure 176/108 H 144/82 H Pulse Oximetry 94 Oxygen Flow Rate 0 Fraction of Inspired Oxygen 28 SaO2/FiO2 Ratio 357 Oxygen Delivery Method Room Air Oxygen Flow Rate 0 Narrative Exam Narrative: Lying in bed during our interview today. She appears agitated. calves soft, compressible and does not appear to be painful w/ palpation. Wiggles toes in response to stimuli at the bottom of her foot. DF and PF are intact. Post-surgical Aquacel dressing intact, mild bloody drainage. Resp Effort & Inspection: normal respiratory effort Psych Other: severe dementia, patient appears aggitated/anxious Objective Labs 05/23/24 05:29 05/23/24 05:29 Labs: Laboratory Results - last 24 hr 05/21/24 05/22/24 05/23/24 16:04 17:42 05:29 WBC 7.7 RBC 2.22 L Hgb 6.9 L* Hct 20.4 L* MCV 91.8 MCH 31.2 MCHC 34.0 RDW 13.4 Plt Count 196 Neut % (Auto) 62.8 Lymph % (Auto) 20.9 L [place] % (Auto) 15.6 H Eos % (Auto) 0.4 L Baso % (Auto) 0.3 Neut # (Auto) 4800 Lymph # (Auto) 1600 [place] # (Auto) 1200 H Eos # (Auto) 0 Baso # (Auto) 0 Sodium 136 L Potassium 3.5 Chloride 107 Carbon Dioxide 27 BUN 9 Creatinine 0.44 L Estimated GFR > 60 BUN/Creatinine Ratio 20.5 Glucose 125 H Calcium 7.8 L Urine Color Yellow Urine Appearance Clear Urine pH 6.0 Ur Specific [place] 1.020 Urine Protein 1+ H Urine Glucose (UA) Negative Urine Ketones 1+ H Urine Occult Blood 1+ H Urine Nitrate Negative Urine Bilirubin Negative Urine Urobilinogen 1.0 Ur Leukocyte Esterase 1+ H Urine RBC 1-5/hpf Urine WBC 5-10/hpf H Ur Squamous Epith Cells 1-5 /hpf Urine Bacteria Moderate (10-30) H Ur Culture Indicated? Specimen cultured Vol Urine Centrifuged 10ml (spun) Blood Type B Positive Antibody Screen Negative Crossmatch See Detail [facility] Medical History Insomnia Age-related osteoporosis without current pathological fracture Do not resuscitate Fractures (~1997) Measles Chicken pox Hearing loss (~1949) History of urinary incontinence (~2007) Fecal incontinence (~2020) Skin cancer (~2011) Depression, recurrent Essential hypertension Alzheimer's dementia (~2014) Pessary maintenance Presence of pessary Healthy adult Surgical History No pertinent past surgical history Family History Father Pneumonia Brother Cancer Grandfather History of heart disease Social History household members: none Smoking Status: Never smoker alcohol intake: current Assessment & Plan Assessment & Plan narrative: 1) Discharge disposition per medicine, likely SNF. 2) Continue multimodal pain management with ice to the hip for additional pain control if needed. 3) DVT prophylaxis per medicine recommendation. She has ASA BID ordered. 4) I would like patient to work on some movement/mobility exercises while sitting/lying in bed if she tolerates it well since she has been unable to get up and work w/ PT walking d/t low H&H. 5) Keep dressing intact, clean, dry until 2 week postop appointment. No soaking the incision site in pools or tubs. No topical ointments or creams to the incision site. 6) Follow up at [facility] orthopedics in 2 weeks for a postop appointment and wound check. Call our office if any questions or concerns arise. All of the daughter and husbands questions were answered and they are in agreement w/ the treatment plan. Time-Based Coding :: [TOTAL MINUTES] spent with patient and on the chart (including review of chart, obtaining history, exam, reviewing outside data, placing orders, documenting exam and treatment plan, and counseling patient) on [DATE].
[2024-05-23] MEDS: OXYCODONE IR 10 MG TABLET PO (17:43)
[2024-05-23] MEDS: cefTRIAXone 1,000 MG in SODIUM CHLORIDE 0.9% 100 ML 200 MG IV (17:44)
[2024-05-23 23:38] LABS: Hematocrit 26.7 % (36-46); Hemoglobin 9.1 g/dL (12.0-16.0); Mean Corpuscular HGB Conc 34.1 % (30-36); Mean Corpuscular Hemoglobin 30.4 PG (26-34); Platelet Count 195 X10^3/uL (150-400); Red Cell Distribution Width 15.7 % (11.6-14.8); White Blood Cell Count 10.4 X10^3/uL (4.5-11.0)
[2024-05-24] VITALS (10 sets, daily range): BP systolic 137–197; BP diastolic 64–153; PULSE 82–136; RESP 11–16; TEMP 35.9–36.8; O2SAT 92–95
[2024-05-24] MEDS: METOPROLOL TARTRATE 5 MG/5 ML INJ IV ×4 (00:09→22:20)
--- NOTE | 2024-05-24 00:27 | EKG_ITS ---
[place] [id number] [place] [id number] Test Date: 2024-05-24 Pat Name: Tonia Ariza Department: Room: 208 Gender: Female Box Attacher: RICHARD : [id number] Requested By: Order Number: [id number] Reading MD: Alberto Newell MD Measurements Intervals [place] Rate: 134 P: 55 OK: 164 QRS: -35 QRSD: 82 T: 120 QT: 280 QTc: 418 Interpretive Statements Sinus tachycardia with premature atrial complexes and premature ventricular complexes or fusion complexes Left axis deviation ST & T wave abnormality, consider lateral ischemia NO PRIOR TRACING Electronically Signed On 05-24-2024 10:33:39 PDT by Alberto Newell MD
--- NOTE | 2024-05-24 01:49 | PC.NURSE ---
Addendum entered by Christa Beach R.N. 05/24/24 06:45: Pt became increasingly agitated and pulled out 2 IV's and tugging at catheter. Notified Dr. Rey and received order for soft restraints. Soft restraints placed at 05:47. Addendum entered by Christa Beach R.N. 05/24/24 05:35: 04:10- Pt BP 197/81. Heart rate in 130's. PRN IV metoprolol administered, when rechecked, BP 149/64, HR 82. Dr. Rey notified and telemetry ordered. Addendum entered by Christa Beach R.N. 05/24/24 01:56: Approx. 1 hour later, HR elevated to 120's- 130's. BP 174/93, R 12, 93% RA, T 97.3. Dr. Walker ordered CBC and PO/ IV metoprolol. Patient agitated and unable to take oral medication. Per Dr. Rey, ok to give IV metoprolol. Medication given as ordered. BP 154/82, HR 80's when rechecked. Original Note: Noted patient having periods of apnea, Resp 12, all other VS WNL. Attempted to place on oxygen via nasal cannula and patient did not tolerate and removed it.
[2024-05-24] MEDS: HYDROMORPHONE 0.5 MG INJ IV (06:16)
[2024-05-24 06:30] LABS: Add Manual Diff / Slide Review NO; Basophils Absolute Auto 0 /uL (0-100); Basophils Percent Auto 0.2 % (0-2); Eosinophils Absolute Auto 200 /uL (0-450); Eosinophils Percent Auto 1.6 % (2-4); Hemoglobin 8.9 g/dL (12.0-16.0); Lymphocytes Absolute Auto 1900 /uL (1100-4500); Lymphocytes Percent Auto 19.6 % (25-40); Mean Corpuscular HGB Conc 34.3 % (30-36); Mean Corpuscular Hemoglobin 30.4 PG (26-34); Mean Corpuscular Volume 88.6 fL (80-100); Monocytes Absolute Auto 1100 /uL (0-900); Monocytes Percent Auto 11.2 % (3-14); Neutrophils Absolute Auto 6500 /uL (1500-7000); Neutrophils Percent Auto 67.4 % (50-75); Platelet Count 215 X10^3/uL (150-400); Red Blood Cell Count 2.94 X10^6/uL (4.0-5.2); Red Cell Distribution Width 15.5 % (11.6-14.8); White Blood Cell Count 9.6 X10^3/uL (4.5-11.0)
[2024-05-24 06:49] LABS: BUN Creatinine Ratio 31.8 (6-22); Blood Urea Nitrogen 14 mg/dL (7-17); Calcium 8.6 mg/dL (8.4-10.2); Carbon Dioxide 31 mmol/L (22-32); Chloride 110 mmol/L (98-107); Estimated Glomerular Filt Rate > 60 mL/min (>60); Glucose 117 mg/dL (80-110); HEMOLYSIS < 15 (0-50); Potassium 3.9 mmol/L (3.4-5.1); Sodium 143 mmol/L (137-145)
--- NOTE | 2024-05-24 09:54 | PM.PNPO.1 ---
Subjective Subjective Date Patient Seen: 05/24/24 Time Patient Seen: 09:54 Interval history: Pt lying in bed w/ in room. She lives at [facility]. Per , the plan is for transfer to [facility] tomorrow. Prior to her fall, she was ambulating without any assistive devices. She has not been ambulatory since surgery; her says she has only been up to sit on the side of the bed. Exam Vital Signs (past 8 hours): - 05/24/24 03:45 05/24/24 04:29 05/24/24 06:00 Temperature 97.3 F L Pulse Rate 133 H 82 89 Respiratory Rate 11 L Blood Pressure 197/81 H 149/64 H Pulse Oximetry 93 05/24/24 06:44 Temperature Pulse Rate Respiratory Rate 14 Blood Pressure Pulse Oximetry Fraction of Inspired Oxygen 28 SaO2/FiO2 Ratio 357 Oxygen Delivery Method Room Air Oxygen Flow Rate 0 Narrative Exam Narrative: Pt does not comply with any directions. She does not express pain when I gently move her foot or squeeze her calf. Aquacel dressing with moderate bloody drainage. Distal stab incision w/ staple, no dressing, benign in appearance Objective Labs 05/24/24 06:10 05/24/24 06:10 Labs: Laboratory Results - last 24 hr 05/21/24 05/23/24 05/24/24 16:04 23:32 06:10 WBC 10.4 9.6 RBC 3.00 L 2.94 L Hgb 9.1 L 8.9 L Hct 26.7 L 26.0 L MCV 89.0 88.6 MCH 30.4 30.4 MCHC 34.1 34.3 RDW 15.7 H 15.5 H Plt Count 195 215 Neut % (Auto) 67.4 Lymph % (Auto) 19.6 L [place] % (Auto) 11.2 Eos % (Auto) 1.6 L Baso % (Auto) 0.2 Neut # (Auto) 6500 Lymph # (Auto) 1900 [place] # (Auto) 1100 H Eos # (Auto) 200 Baso # (Auto) 0 Sodium 143 Potassium 3.9 Chloride 110 H Carbon Dioxide 31 BUN 14 Creatinine 0.44 L Estimated GFR > 60 BUN/Creatinine Ratio 31.8 H Glucose 117 H Calcium 8.6 Crossmatch See Detail [facility] Medical History Insomnia Age-related osteoporosis without current pathological fracture Do not resuscitate Fractures (~1997) Measles Chicken pox Hearing loss (~1949) History of urinary incontinence (~2007) Fecal incontinence (~2020) Skin cancer (~2011) Depression, recurrent Essential hypertension Alzheimer's dementia (~2014) Pessary maintenance Presence of pessary Healthy adult Surgical History No pertinent past surgical history Family History Father Pneumonia Brother Cancer Grandfather History of heart disease Social History household members: none Smoking Status: Never smoker alcohol intake: current Assessment & Plan Post-op Assessment and plan (1) Status post hip surgery: Assessment and Plan narrative: 1) Weightbearing as tolerated to right leg. 2) VTE prophylaxis per hospitalist service, currently receiving ASA 81 mg BID. This should be continued for at least 6 weeks after surgery. 3) Pain control and disposition per hospitalist service. Has quite a few medical issues, possible SNF tomorrow. 4) F/u w/ ortho in 2 weeks for wound check, in 6 weeks w/ Dr Crockett for repeat imaging. Postoperative Procedures: Procedures Operation Date: 05/21/24 14:45 Actual Procedure Side Surgeon p Intramedullary Nailing Hip Right Fabi Crockett MD Postoperative day: 1
--- NOTE | 2024-05-24 10:25 | P.PN_ITS ---
Subjective Subjective Date Patient Seen: 05/24/24 Time Patient Seen: 09:15 Interval history: Tonia is a 89 year old female who is POD#3 s/p right hip IMN for a right hip intertrochanteric fracture. No new events overnight. Her Danny is at bedside. Her daughter Michelle is visiting from [place] but planning to return home Sunday. She underwent blood transfusion yesterday and has improved with hematocrit up to 26%. She became very agitated last night, as she is prone to do. Soft wrist restraints were placed and she was pulling out IVs She is been intolerant of haloperidol and quetiapine. Exam Vital Signs (past 8 hours): - 05/24/24 03:45 05/24/24 04:29 05/24/24 06:00 Temperature 97.3 F L Pulse Rate 133 H 82 89 Respiratory Rate 11 L Blood Pressure 197/81 H 149/64 H Pulse Oximetry 93 05/24/24 06:44 Temperature Pulse Rate Respiratory Rate 14 Blood Pressure Pulse Oximetry Fraction of Inspired Oxygen 28 SaO2/FiO2 Ratio 357 Oxygen Delivery Method Room Air Oxygen Flow Rate 0 Narrative Exam Narrative: GENERAL: This is a well-nourished, well-developed patient, in no apparent distress, appears fatigued this morning but awakens, answers simple questions, pleasantly demented. EYES: Pupils equal round and reactive. Extraocular motions intact. No scleral icterus. No injection or drainage. ENT: Mucous membranes pink and moist. NECK: Trachea midline. No JVD, bruits or lymphadenopathy. Supple, nontender, no meningeal signs. CARDIOVASCULAR: Regular rate and rhythm with grade 2/6 systolic murmur RESPIRATORY: Clear to auscultation. GASTROINTESTINAL: Abdomen soft, non-tender, nondistended. EXTREMITIES: No clubbing, cyanosis, or edema. right hip bandage in place, clean, dry and intact. soft wrist restraints in place NEUROLOGIC: Alert, oriented to person only, speech fluent, full upper and lower motor strength, no focal deficits evident. DERMATOLOGIC: No rashes or skin lesions. Objective Labs 05/24/24 06:10 05/24/24 06:10 Labs: Laboratory Results - last 24 hr 05/21/24 05/23/24 05/24/24 16:04 23:32 06:10 WBC 10.4 9.6 RBC 3.00 L 2.94 L Hgb 9.1 L 8.9 L Hct 26.7 L 26.0 L MCV 89.0 88.6 MCH 30.4 30.4 MCHC 34.1 34.3 RDW 15.7 H 15.5 H Plt Count 195 215 Neut % (Auto) 67.4 Lymph % (Auto) 19.6 L Dolores % (Auto) 11.2 Eos % (Auto) 1.6 L Baso % (Auto) 0.2 Neut # (Auto) 6500 Lymph # (Auto) 1900 Dolores # (Auto) 1100 H Eos # (Auto) 200 Baso # (Auto) 0 Sodium 143 Potassium 3.9 Chloride 110 H Carbon Dioxide 31 BUN 14 Creatinine 0.44 L Estimated GFR > 60 BUN/Creatinine Ratio 31.8 H Glucose 117 H Calcium 8.6 Crossmatch See Detail [facility] Medical History Insomnia Age-related osteoporosis without current pathological fracture Do not resuscitate Fractures (~1997) Measles Chicken pox Hearing loss (~1949) History of urinary incontinence (~2007) Fecal incontinence (~2020) Skin cancer (~2011) Depression, recurrent Essential hypertension Alzheimer's dementia (~2014) Pessary maintenance Presence of pessary Healthy adult Surgical History No pertinent past surgical history Family History Father Pneumonia Brother Cancer Grandfather History of heart disease Social History household members: none Smoking Status: Never smoker alcohol intake: current Assessment & Plan Assessment & Plan narrative: 1. Right hip fracture S/P ORIF 05/21, present on admission and active. 2. Acute blood loss anemia secondary to fracture with hematocrit 20%, new and active. 3. Hypertension, present on admission and active. 4. Dementia with nocturnal agitation, as well as agitation with certain events such as showering, present on admission and active. Plan: -aspirin b.i.d. for DVT prophylaxis. -consider restarting schedule lorazepam in the evening. Will explore other options, e.g. risperidone, though she has not done well with antipsychotics. -anticipate discharge to [facility] facility, referral on process. PT eval. Restraints are in place and wrist as she was interfering with care by removing her IV or threatening to attempt to her IV. Will attempt to removed today and monitor. Inpatient status, expected 2 night stay. is a proxy decision maker. TISHA 05/26, SNF, delayed due to behavioral issues. Time-Based Coding :: [TOTAL MINUTES] spent with patient and on the chart (including review of chart, obtaining history, exam, reviewing outside data, placing orders, documenting exam and treatment plan, and counseling patient) on [DATE]. PROFEE Charge codes Subsequent inpatient/observation care: 92218
--- NOTE | 2024-05-24 10:30 | PT.IIE ---
Current Diagnoses Fracture of unspecified part of neck of right femur, initial encounter for closed fracture (05/20/24) Other specified postprocedural states (05/20/24) Surgery Performed Operation Date: 05/21/24 14:45 Actual Procedures p Intramedullary Nailing Hip(Right) - Fabi Crockett MD Surgical History (Last Reviewed 05/24/24 @ 10:28 by Rafael Flanagan MD) No pertinent past surgical history Medical History (Last Reviewed 05/24/24 @ 10:28 by Rafael Flanagan MD) Age-related osteoporosis without current pathological fracture Alzheimer's dementia (~2014) Chicken pox Depression, recurrent Do not resuscitate Essential hypertension Fecal incontinence (~2020) Fractures (~1997) Healthy adult Hearing loss (~1949) History of urinary incontinence (~2007) Insomnia Measles Pessary maintenance Presence of pessary Skin cancer (~2011) Physical Therapy Inpatient Evaluation/Re-Eval M1 PT/OT-IP Prior Functional Status Start: 05/22/24 10:26 Freq: NEEDED Status: Active Protocol: Document 05/24/24 10:30 AB (Rec: 05/24/24 12:44 AB [id number]) Medical Review Prior Functional Status Medical History Reviewed Yes Communication pt with dx dementia is is very confused and unable to follow directs and answer questions; unable to effectively communicate Mobility and Gait spouse in room and provided info: stated that pt was able to ambulate without AD at [facility]. Staff assists with all other needs Social History Household Members none Living Arrangements Other Number of Stairs To Enter/Railing? pt lives at [facility] M2 PT-IP Current Condition Start: 05/22/24 10:26 Freq: NEEDED Status: Active Protocol: Document 05/24/24 10:30 AB (Rec: 05/24/24 12:44 AB [id number]) Physical Therapy Current Condition Current Condition Evaluation Date 05/24/24 Treatment Diagnosis s/p R hip ORIF; difficulty in walking Onset Date 05/20/24 M3 PT-IP Subjective Start: 05/22/24 10:26 Freq: NEEDED Status: Active Protocol: Document 05/24/24 10:30 AB (Rec: 05/24/24 12:44 AB [id number]) Subjective Physical Therapy Visit Type Type Initial Evaluation Visit Start Time 10:30 Visit Stop Time 11:30 Notes pt was on hold yesterday due to decrease H&H and was receiving blood transfusion. current Hgb 8.9 and Hct 26 Number of WEALTH MANAGEMENT DIRECTOR Visits 0 M4 PT-IP Mobility and Gait Start: 05/22/24 10:26 Freq: NEEDED Status: Active Protocol: Document 05/24/24 10:30 AB (Rec: 05/24/24 12:44 AB [id number]) PT-Bed Mobility Assessment Supine to Sit Supine to Sit Total Assistance,2 Person Assistance,Head of Bed Elevated,Bedrails Sit to Supine Sit to Supine Total Assistance,2 Person Assistance Scooting Scooting to Edge of Bed Dependent PT-Transfer Assessment Comments Mobility Comments pt supine in bed and spouse in room. pt awake but usually keep her eyes closed. pt usually hums/moans and spouse stated that this is usual for pt. pt on soft restraint. took soft restraint off during PT and pt immediately grabs and pulls on anything. attempted to redirect pt but unsuccessful. pt is resistive . completed supine to sit total A x 2 and HOB elevated. max A for sitting balance. pt continues to grab and becoming more combative and hitting. attempted to redirect and calm pt but unsuccessful after a few minutes of trying. assisted pt back to bed. total A x 3. total A for positioning and scooting in bed. call light and table placed close to pt. daughter arrived midway during PT session. talked to pt's spouse and daughter regarding pt's rehab potential and informed that at this point pt is not appropriate for PT. informed family that PT will talk to the doctor and rn case mgr regarding other interventions and d/c plan for pt. PT talked to the hospitalist and stated that he will talk to the family to start pt with some medication to calm her down. agreed that pt is not appropriate for PT at this time and will re-order PT when pt is more appropriate. talked to rn case mgr and agreed that pt is not appropriate for PT and to she will talk to family regarding d/c plans. pt lives at [facility] and might be beneficial for pt to go back there if staff can provide the pt with necessary assistance as this is a familiar environment to the pt and might decrease pt's agitataion due to dementia. PT-Balance Assessment Sitting Balance and Reactions Static Sitting Balance Ability Poor Dynamic Sitting Balance Ability Poor M5 PT-IP Objective Assessments Start: 05/22/24 10:26 Freq: NEEDED Status: Active Protocol: Document 05/24/24 10:30 AB (Rec: 05/24/24 12:44 AB [id number]) Orientation Orientation/Cognition Level of Alertness Confusional State Gross Range of Motion Lower Extremity ROM Impairments increase guarding during attempt to move BLE : unable to assess Strength Comments Strength Comments unable to asses due to pt's inability to follow directions and with increase guarding and agitation M7 PT-IP Assessment and Plan Start: 05/22/24 10:26 Freq: NEEDED Status: Active Protocol: Document 05/24/24 10:30 AB (Rec: 05/24/24 12:44 AB [id number]) PT Summary Assessment and Plan Potential Rehabilitation Potential Poor Status of Condition at Evaluation Unstable Summary Assessment Summary Pt is a n 89 y/o F s/p fall and sustained a R hip fx. pt underwent R hip ORIF and is WBAT POD 2. pt has a dx of dementia and currently is unable to follow directions and cannot be redirected. pt with increase agitation and combativeness during PT session and unable to participate much during PT session. pt requiring total A x 2-3 with bed mobility and only able to sit on EOB max A for balance. unable to proceed further due to pt's inable to follow directions and combativeness wherein pt tends to grab/assembler engine and hit staff. pt currently is not appropriate for PT intervention. informed hospitalist and will reorder PT when pt is more appropriate . rn case mgr also informed and aware. Frequency of Treatment Frequency Of Treatment Discharge Precautions Other Precautions soft restraints Weight Bearing Status Weight Bearing Status Weight Bear as Tolerated Allowed Weight Bearing Amount (enter % RLE WBAT or #) (%) Recommendations To Nursing Amount of Assist Needed Mechanical Lift Discharge Recommendations Other Discharge Recommendations memory care facility Transportation Needs at Discharge Stretcher/Ambulance
[2024-05-24] MEDS: ACETAMINOPHEN 325 MG TABLET 650 MG PO (11:18)
--- NOTE | 2024-05-24 13:19 | CM.DPC ---
DCP Cont. Reviewed EMR and team rounds for status updates. Met with pt's dtr and spouse a few times over the course of the day to discuss pt's declining status, and inability to work with therapies. She is still in soft restraints, will be on scheduled Lorazapam for ongoing agitation/anxiousness. She takes only a few bites of food today, however is falling asleep in between bites, is not able to engage with staff or family. Called and cancelled the referral to [facility] and explained that pt is not a rehab candidate, and that she will need to return back. They state that she cannot come back unless she's on hospice. [facility] they can open on Sunday between 2-3pm. Called [facility] again and left a message re: when hospice can open services. and dtr agreeable with this plan. Waiting on return call from Damioncozad to confirm that this plan will work for a Sunday d/c from the hospital. Will need BLS transport.
[2024-05-24] MEDS: LORazepam 0.5 MG TABLET PO ×2 (13:51→20:03)
[2024-05-24] MEDS: ASPIRIN EC 81 MG TABLET PO ×2 (13:51→18:15)
[2024-05-24] MEDS: cefTRIAXone 1,000 MG in SODIUM CHLORIDE 0.9% 100 ML 200 MG IV (18:15)
[2024-05-25] VITALS: PULSE 87; RESP 16; TEMP 36.2; O2SAT 97
[2024-05-25] MEDS: METOPROLOL TARTRATE 5 MG/5 ML INJ IV ×2 (00:41→09:49)
[2024-05-25] MEDS: LORazepam 0.5 MG TABLET PO ×2 (00:48→13:42)
[2024-05-25] MEDS: HYDROMORPHONE 0.5 MG INJ IV ×3 (00:56→14:16)
[2024-05-25 04:00] VITALS: BP 171/59; PULSE 93; RESP 12; TEMP 36.7; O2SAT 95
[2024-05-25] MEDS: LORazepam 2 MG/ML INJ 1 MG IV (05:55)
[2024-05-25 09:00] VITALS: BP 217/93; PULSE 138; RESP 16; TEMP 36.7; O2SAT 95
--- NOTE | 2024-05-25 09:00 | PM.PNPO.1 ---
Subjective Subjective Date Patient Seen: 05/25/24 Time Patient Seen: 09:00 Interval history: Per CM note from yesterday and discussion w/ pts RN today, plan is to change status to hospice for discharge. Exam Vital Signs (past 8 hours): - 05/25/24 04:00 05/25/24 07:00 Temperature 98.1 F Pulse Rate 93 H Respiratory Rate 12 Blood Pressure 171/59 H Pulse Oximetry 95 Oxygen Delivery Method Room Air Fraction of Inspired Oxygen 28 SaO2/FiO2 Ratio 357 Oxygen Delivery Method Room Air Oxygen Flow Rate 0 Objective Labs 05/24/24 06:10 05/24/24 06:10 [facility] Medical History Insomnia Age-related osteoporosis without current pathological fracture Do not resuscitate Fractures (~1997) Measles Chicken pox Hearing loss (~1949) History of urinary incontinence (~2007) Fecal incontinence (~2020) Skin cancer (~2011) Depression, recurrent Essential hypertension Alzheimer's dementia (~2014) Pessary maintenance Presence of pessary Healthy adult Surgical History No pertinent past surgical history Family History Father Pneumonia Brother Cancer Grandfather History of heart disease Social History household members: none Smoking Status: Never smoker alcohol intake: current Assessment & Plan Post-op Assessment and plan (1) Status post hip surgery: Assessment and Plan narrative: Current plan for this pt is hospice. Will follow while the pt is in house in the event her status changes again. If she remains hospice, she certainly doesn't need to follow up in our office and her shmuel can be removed at her care center at 10-14 days post-op. Postoperative Procedures: Procedures Operation Date: 05/21/24 14:45 Actual Procedure Side Surgeon p Intramedullary Nailing Hip Right Fabi Crockett MD Postoperative day: 4
--- NOTE | 2024-05-25 09:43 | PM.PN.1 ---
Subjective Subjective Date Patient Seen: 05/25/24 Time Patient Seen: 08:45 Interval history: Tonia is a 89 year old female who is POD#4 s/p right hip IMN for a right hip intertrochanteric fracture. No new events overnight on lorazepam scheduled and as needed. Exam Vital Signs (past 8 hours): - 05/25/24 04:00 05/25/24 07:00 Temperature 98.1 F Pulse Rate 93 H Respiratory Rate 12 Blood Pressure 171/59 H Pulse Oximetry 95 Oxygen Delivery Method Room Air Fraction of Inspired Oxygen 28 SaO2/FiO2 Ratio 357 Oxygen Delivery Method Room Air Oxygen Flow Rate 0 Narrative Exam Narrative: GENERAL: This is a well-nourished, well-developed patient, in no apparent distress, appears fatigued this morning but awakens, answers simple questions, pleasantly demented. EYES: Pupils equal round and reactive. Extraocular motions intact. No scleral icterus. No injection or drainage. ENT: Mucous membranes pink and moist. NECK: Trachea midline. No JVD, bruits or lymphadenopathy. Supple, nontender, no meningeal signs. CARDIOVASCULAR: Regular rate and rhythm with grade 2/6 systolic murmur RESPIRATORY: Clear to auscultation. GASTROINTESTINAL: Abdomen soft, non-tender, nondistended. EXTREMITIES: No clubbing, cyanosis, or edema. right hip bandage in place, clean, dry and intact. soft wrist restraints in place NEUROLOGIC: Alert, oriented to person only, speech fluent, full upper and lower motor strength, no focal deficits evident. DERMATOLOGIC: No rashes or skin lesions. Objective Labs 05/24/24 06:10 05/24/24 06:10 [facility] Medical History Insomnia Age-related osteoporosis without current pathological fracture Do not resuscitate Fractures (~1997) Measles Chicken pox Hearing loss (~1949) History of urinary incontinence (~2007) Fecal incontinence (~2020) Skin cancer (~2011) Depression, recurrent Essential hypertension Alzheimer's dementia (~2014) Pessary maintenance Presence of pessary Healthy adult Surgical History No pertinent past surgical history Family History Father Pneumonia Brother Cancer Grandfather History of heart disease Social History household members: none Smoking Status: Never smoker alcohol intake: current Assessment & Plan Assessment & Plan narrative: 1. Right hip fracture S/P ORIF 05/21, present on admission and active. 2. Acute blood loss anemia secondary to fracture with hematocrit 20%, new and active, improved to 26% following 1 unit packed red blood cell transfusion 05/23/2024. 3. Hypertension, present on admission and active. 4. Dementia with nocturnal agitation, as well as agitation with certain events such as showering, present on admission and active. Plan: -aspirin b.i.d. for DVT prophylaxis. -lorazepam nightly and as needed for agitation. -Will explore other options, e.g. risperidone, though she has not done well with antipsychotics. -anticipate discharge to [facility] facility, referral on process. PT eval. Restraints are in place and wrist as she was interfering with care by removing her IV or threatening to attempt to her IV. Will attempt to removed today and monitor. Inpatient status, expected 2 night stay. is a proxy decision maker. TISHA 05/26, SNF, delayed due to behavioral issues. Time-Based Coding :: [TOTAL MINUTES] spent with patient and on the chart (including review of chart, obtaining history, exam, reviewing outside data, placing orders, documenting exam and treatment plan, and counseling patient) on [DATE].
[2024-05-25] MEDS: ASPIRIN EC 81 MG TABLET PO (09:49)
--- NOTE | 2024-05-25 12:20 | CM.DPC ---
DCP Cont. Reviewed EMR and team rounds for status updates. [facility] pt back at [facility] on Sunday afternoon, however, [facility] has not returned this TOOTH POLISHER's calls in 2-days to confirm if they can take her back Sunday. TOOTH POLISHER on Sunday will call Coni, the RN Director, early am to discuss and confirm timing of return. Will need to call [facility] if [facility] cannot accept on Sunday.
[2024-05-25 16:00] VITALS: BP 141/81; PULSE 136; RESP 18; TEMP 36.6; O2SAT 98
[2024-05-25] MEDS: cefTRIAXone 1,000 MG in SODIUM CHLORIDE 0.9% 100 ML 200 MG IV (17:59)
[2024-05-25 19:00] VITALS: BP 133/72; PULSE 66; RESP 20; TEMP 36.5; O2SAT 93
[2024-05-26 03:42] VITALS: BP 136/68; PULSE 75; RESP 18; TEMP 36.8; O2SAT 94
[2024-05-26 08:00] VITALS: BP 130/79; PULSE 81; RESP 20; TEMP 36.4; O2SAT 93
[2024-05-26] MEDS: ASPIRIN EC 81 MG TABLET PO (08:45)
[2024-05-26] MEDS: ACETAMINOPHEN 325 MG TABLET 650 MG PO (08:45)
[2024-05-26] MEDS: LORazepam 0.5 MG TABLET PO (09:53)
--- NOTE | 2024-05-26 10:28 | OT.IPNOTE ---
Discussed pt in rounds today. Question posed on if OT was appropriate. This program writer reviewed chart and contacted [facility] for pts PLOF for ADLs. Pt was max to dependent for all care, needing hand over hand. She was able to ambulate without AD but has a hx of falls. Will relay information onto Dr. Cesar. No OT order recommended given pt was dependent in care at baseline.
--- NOTE | 2024-05-26 11:20 | CM.DPNOTE ---
Called [facility] for BLS transport for 1300 today, 05/26 and spoke to Paulette; to go back to [facility] per Deanna; I called to reschedule this to 1300 on 05/27 due to [facility] not accepting the patient back until PT has tried to work with pt. I spoke to Rafael who did revise this date until Sunday. Alicia Sanders, LOT[facility] Assist.
[2024-05-26] MEDS: PARoxetine 20 MG TABLET 10 MG PO (12:08)
[2024-05-26] MEDS: OXYCODONE IR 10 MG TABLET PO (12:10)
--- NOTE | 2024-05-26 13:06 | PM.PNPO.1 ---
Subjective Subjective Date Patient Seen: 05/26/24 Time Patient Seen: 13:06 Interval history: Spoke to pts and daughter, Michelle. Per Michelle, the only difference between her mother now and her mother prior to fall is her broken hip; there has been no change in her mental status. Given this, the family would very much like her to participate in PT as much as possible in the hopes that she will be able to ambulate again and eventually return to a memory care facility. Exam Vital Signs (past 8 hours): - 05/26/24 08:00 Temperature 97.6 F Pulse Rate 81 Respiratory Rate 20 Blood Pressure 130/79 Pulse Oximetry 93 Oxygen Flow Rate 0 Fraction of Inspired Oxygen 28 SaO2/FiO2 Ratio 357 Oxygen Delivery Method Room Air Oxygen Flow Rate 0 Narrative Exam Narrative: Aquacel dressing was coming off. With the help of the pts , I was able to remove the dressing, cleanse the incisions with chloroprep, and place a new, sterile Aquacel. The pt expressed that this was causing pain and batted my hands away. She does not follow commands. Her calf is soft and compressible. Objective Labs 05/24/24 06:10 05/24/24 06:10 [facility] Medical History Insomnia Age-related osteoporosis without current pathological fracture Do not resuscitate Fractures (~1997) Measles Chicken pox Hearing loss (~1949) History of urinary incontinence (~2007) Fecal incontinence (~2020) Skin cancer (~2011) Depression, recurrent Essential hypertension Alzheimer's dementia (~2014) Pessary maintenance Presence of pessary Healthy adult Surgical History No pertinent past surgical history Family History Father Pneumonia Brother Cancer Grandfather History of heart disease Social History household members: none Smoking Status: Never smoker alcohol intake: current Assessment & Plan Post-op Assessment and plan (1) Status post hip surgery: Assessment and Plan narrative: 1) Plan at this time is to proceed with looking for rehab placement and not to go on hospice care. 2) Weightbearing as tolerated to right leg. Discussed w/ and daughter that the pt has no restrictions, but that progress w/ PT will likely be slow d/t her pain and limited ability to follow instruction and understand goals. 3) VTE prophylaxis per hospitalist service, currently receiving ASA 81 mg BID. This should be continued for at least 6 weeks after surgery. 4) Pain control and disposition per hospitalist service. 4) F/u w/ ortho in 5-9 days for wound check, in 6 weeks w/ Dr Crockett for repeat imaging. Postoperative Procedures: Procedures Operation Date: 05/21/24 14:45 Actual Procedure Side Surgeon p Intramedullary Nailing Hip Right Fabi Crockett MD Postoperative day: 5
--- NOTE | 2024-05-26 13:09 | CM.DPC ---
Addendum entered by KORY Maloney 05/26/24 16:08: ADD: Mohinder still reviewing, waiting to hear their decision if they feel they can accept. [facility] decline pt as they do not feel they can meet her needs and do not feel insurance would auth SNF. DAINA met with spouse and Dtr again for lengthy discussion and updated on difficulty with SNF at d/c and discussed if no SNF accepts and/or insurance denies SNF auth then what is their preference for backup plan. Discussed options of private pay SNF if one would accept, d/c home with Hospice and PP CGs, return to [facility] with either Hospice or HH. Family considering these options SW also updated spouse and Dtr that pt is currently An Avoidable Day and insurance starting to deny coverage of her stay. DAINA called Olga at [facility] again and updated her on the unlikely ability to place pt at SNF and that pt off restraints and insurance denying her further stay and need for return to their facility as pt has been manageable without actively attempting to get up. Faxed clinicals for her to review and stressed importance that pt cannot remain in the hospital. Olga will review with her Bail Bonding Agent this evening and update DAINA in the AM. BF Addendum entered by KORY Maloney 05/26/24 13:29: ADD: DAINA also sent SNF referral to [facility] for due diligence to determine if any SNF feels they can accept. Waiting for their review. BF Original Note: DCP SNF vs Comfort Per MD, pt remains medically stable to discharge and placed discharge orders for facility with Hospice. DAINA confirmed with [facility] that they have DME being delivered this morning and can open pt today between [id number]. DAINA called [facility] and RN Coni still on vacation and spoke to their Veterinary Technology Instructor Olga and discussed above plan and she states they have concerns as pt had been independently mobile prior to fall and hip fx and they cannot use physical or medication restraints and they are requesting another PT eval as they want SNF before return. DAINA discussed the potential barriers to SNF (needing insurance auth and finding a SNF to accept). [facility] attempted to deliver DME today to [facility] and they refused and turned [facility] away. DAINA updated [facility] that pt likely not discharging the hospital today and they have pt on hold for Hospice SOC and awaiting d/c plan. Pt has been off dilaudid and soft wrist restraint since yesterday 05/25/24. DAINA met bedside with pt, CG from [facility], Dtr and spouse and pt with eyes closed and moaning or sleeping. They confirm their Goals of Care are to attempt SNF rehab to see if pt gains mobility again before Hospice. SW explained the potential barriers to SNF and they seems to understand a little but not fully and do not seem aware that pt might not recover from this hip fx and repair. Preference for SNF is [facility] due to location and spouse ability to visit and not currently interested in any other SNF at this time. Per PT, pt only able to minimally participate and they will recommend SNF vs return to [facility] and will attempt maybe once more tomorrow. DAINA contacted [facility] and they have been following until this weekend when plan had been [facility] with Hospice. They will review pt's new PT eval from today to determine if they feel they can accept but concerns about pt likely benefiting from 1:1 due to her advanced dementia and attempting to get out of bed. [facility] requesting call back to discuss backup plan if SNF is not auth'd by [facility] and if no SNF secured and need to d/c back to their facility. KORY Maloney
--- NOTE | 2024-05-26 13:42 | PT.IPRE ---
Current Diagnoses Fracture of unspecified part of neck of right femur, initial encounter for closed fracture (05/20/24) Other specified postprocedural states (05/20/24) Surgery Performed Operation Date: 05/21/24 14:45 Actual Procedures p Intramedullary Nailing Hip(Right) - Fabi Crockett MD Surgical History (Last Reviewed 05/25/24 @ 09:44 by Rafael Flanagan MD) No pertinent past surgical history Medical History (Last Reviewed 05/25/24 @ 09:44 by Rafael Flanagan MD) Age-related osteoporosis without current pathological fracture Alzheimer's dementia (~2014) Chicken pox Depression, recurrent Do not resuscitate Essential hypertension Fecal incontinence (~2020) Fractures (~1997) Healthy adult Hearing loss (~1949) History of urinary incontinence (~2007) Insomnia Measles Pessary maintenance Presence of pessary Skin cancer (~2011) Physical Therapy Inpatient Evaluation/Re-Eval M1 PT/OT-IP Prior Functional Status Start: 05/22/24 10:26 Freq: NEEDED Status: Active Protocol: Document 05/24/24 10:30 AB (Rec: 05/24/24 12:44 AB [id number]) Medical Review Prior Functional Status Medical History Reviewed Yes Communication pt with dx dementia is is very confused and unable to follow directs and answer questions; unable to effectively communicate Mobility and Gait spouse in room and provided info: stated that pt was able to ambulate without AD at [facility]. Staff assists with all other needs Social History Household Members none Living Arrangements Other Number of Stairs To Enter/Railing? pt lives at [facility] M2 PT-IP Current Condition Start: 05/22/24 10:26 Freq: NEEDED Status: Active Protocol: Document 05/26/24 13:26 MB (Rec: 05/26/24 13:41 MB [id number]) Physical Therapy Current Condition Current Condition Evaluation Date 05/24/24 Treatment Diagnosis s/p R hip ORIF; difficulty in walking Onset Date 05/20/24 M3 PT-IP Subjective Start: 05/22/24 10:26 Freq: NEEDED Status: Active Protocol: Document 05/26/24 13:26 MB (Rec: 05/26/24 13:41 MB [id number]) Subjective Physical Therapy Visit Type Type Re-Evaluation Visit Start Time 12:00 Visit Stop Time 12:45 Notes Pt case discussed in rounds before PT arrives and new order for re-eval put in. Concerns about [facility] not taking pt back and so [facility] is new family preference. Number of SAMPLER TESTER Visits 0 Physical Therapy Visit Comments Patient Comments Pt frequently humming and making comments that are not relevant to task at hand and are occ difficult to understand. Daughter and assist with encouraging pt and holding her hands during mobility. Therapy Pain Assessment Pain When Pain Assessed During Mobility Pain Present Pain Present Pain Reported Location right hip Intensity 4 Scale Used Rivera-Foley (Faces) M4 PT-IP Mobility and Gait Start: 05/22/24 10:26 Freq: NEEDED Status: Active Protocol: Document 05/26/24 13:26 MB (Rec: 05/26/24 13:41 MB [id number]) PT-Bed Mobility Assessment Supine to Sit Supine to Sit Maximum Assistance,2 Person Assistance Sit to Supine Sit to Supine Total Assistance,2 Person Assistance Scooting Scooting to Edge of Bed Dependent PT-Transfer Assessment Comments Mobility Comments Daughter and nearby and occ hold pt's hands so she does not reel film inspector PT's hands and wrists. Pt does not reach for rail when PT attempts to guide her hands there. PT moves legs in block to right side of bed and pt scoots hips part of the way. After pt lies flat , she states she wants to get up and then +2 max A to reach long sitting. Max A to scoot to EOB and pt sits with CGA to assist to hold hands for many minutes without LOB. holds pt's hands so PT can don gait belt and walker placed in front of pt. She does not reel film inspector when and PT guide hands to walker. Nsg and PT move pt en bloc back to supine and dependent assistance to scoot up to HOB, DIAMOND CLEAVER holds pt' s hands. M5 PT-IP Objective Assessments Start: 05/22/24 10:26 Freq: NEEDED Status: Active Protocol: Document 05/24/24 10:30 AB (Rec: 05/24/24 12:44 AB [id number]) Orientation Orientation/Cognition Level of Alertness Confusional State Gross Range of Motion Lower Extremity ROM Impairments increase guarding during attempt to move BLE : unable to assess Strength Comments Strength Comments unable to asses due to pt's inability to follow directions and with increase guarding and agitation M7 PT-IP Assessment and Plan Start: 05/22/24 10:26 Freq: NEEDED Status: Active Protocol: Document 05/26/24 13:26 MB (Rec: 05/26/24 13:41 MB [id number]) PT Summary Assessment and Plan Potential Rehabilitation Potential Poor Status of Condition at Evaluation Unstable Summary Impairments Pain,ROM,Strength,Balance, Coordination,Cognition,Bed Mobility,Transfers,Gait, Activity Tolerance Progress Towards Goals Slow Progress - Other Assessment Summary PT re-evaluation ordered in rounds, though this PT was not present for discussion. Family states that [facility] will not take pt back and they are left in a rock and a hard place and so [facility] is their hope. Daughter states that pt does not like to be touched and that telling her everything that is going to be asked/done, before doing so is the best method of communication. PT provides one step functional commands and encouragement throughout re- evaluation. Pt does not follow commands and family frequently holds pt's hands to allow PT to assist with mobility. Pt is able to sit EOB without support except to hold hands so she will not scratch distal right knee or reel film inspector PT. 2-3 person assistance for mobility. One more PT trial in acute to try with third therapist to see if pt improves. She is able to sit EOB today and has reduced agitation compared to evaluation. Dementia is a barrier to skilled therapy. PT attempts to educate daughter that d/c to another new facility for skilled therapy could cause more confusion in setting of dementia and present presentation. Daughter reports they do not want to give up on her and she likes to walk and would like to get OOB. One more PT attempt. If pt con't to be unable to progress, consider d/c acute PT. Goals Bed Mobility Goal Minimal Assistance Transfer Goal Minimal Assistance,Front Wheeled Walker Gait Goal Minimal Assistance Gait Distance 25 Days to Meet Goals 5 Frequency of Treatment Other frequency 1 treatment trial Treatment Plan Physical Therapy Treatment Plan Bed Mobility Training,Transfer Training,Gait Training, Therapeutic Exercise,Balance Retraining,Post Op Education, Discharge Planning, Neuromuscular Re-ed, Coordination Retraining Other Recommendations and Next Treatment Bed mobility, sitting, Focus scooting Weight Bearing Status Weight Bearing Status Weight Bear as Tolerated Allowed Weight Bearing Amount (enter % RLE or #) (%) Recommendations To Nursing Amount of Assist Needed Mechanical Lift Discharge Recommendations Other Discharge Recommendations 24 hour total care and PT consult at d/c Transportation Needs at Discharge Stretcher/Ambulance
[2024-05-26] MEDS: HYDROCODONE/ACET 5/325 TABLET 1 TAB PO (14:04)
--- NOTE | 2024-05-26 14:35 | DIET.CONS ---
Dietary Consultation Note Admission Date: 05/20/2024 18:33 Assessment: 89 y F admitted for hip fracture. PMH of dementia. Nutrition screened for LOS. Per EMR review, GOC are to attempt SNF rehab before hospice. Average recorded po intakes <50%. Ht: 157.48 cm Wt: 58.967 kg BMI: 23.8 UBW: 60.872 kg on 04/24/24 (3% weight loss in 1 month, non-severe), 52.163 kg on 11/26/23 Last BM: 05/25/24 (05/25/24 06:00) MNA: Nick Score: 16 Diet: 05/22/24 Lunch General (Regular) Diet Diet Modifications: Food Texture: Level 7 - Regular Liquid Consistency: Level 0 - Thin Nutrition Percent Meal Consumed 25% 05/26/24 13:08 Percent Meal Consumed pt ref dinner 05/25/24 18:00 Percent Meal Consumed 25% 05/24/24 18:00 Labs: RBC 2.94 X10^6/uL (4.0-5.2) L 05/24/24 06:10 Hgb 8.9 g/dL (12.0-16.0) L 05/24/24 06:10 Hct 26.0 % (36-46) L 05/24/24 06:10 Creatinine 0.44 mg/dL (0.52-1.04) L 05/24/24 06:10 Nutrition Diagnosis: Inadequate oral intake r/t decreased ability to consume sufficient energy intake aeb recorded po intakes <50% Interventions: 1. ONS BID Monitoring/Evaluations: po intakes, GOC Electronically Signed by: Jessi Gross 05/26/24 14:35 Clinical Dietitian [address] [address]
--- NOTE | 2024-05-26 15:09 | PM.PN.1 ---
Subjective Subjective Interval history: Tonia is a 89 year old female who is POD#5 s/p right hip IMN for a right hip intertrochanteric fracture. Family reports abdominal distension, she appears at baseline mentation per family, but state she appears slightly uncomfortable. Added laxitive therapies today. Initially planned for return to [facility], however after discussion they would like repeat PT evaluation to determine if patient is able to go to SNF for therapy. Exam Vital Signs (past 8 hours): - 05/26/24 08:00 Temperature 97.6 F Pulse Rate 81 Respiratory Rate 20 Blood Pressure 130/79 Pulse Oximetry 93 Oxygen Flow Rate 0 Fraction of Inspired Oxygen 28 SaO2/FiO2 Ratio 357 Oxygen Delivery Method Room Air Oxygen Flow Rate 0 Narrative Exam Narrative: GENERAL: This is a well-nourished, well-developed patient, in no apparent distress, appears fatigued this morning but awakens, answers simple questions, pleasantly demented. EYES: Pupils equal round and reactive. Extraocular motions intact. No scleral icterus. No injection or drainage. ENT: Mucous membranes pink and moist. NECK: Trachea midline. No JVD, bruits or lymphadenopathy. Supple, nontender, no meningeal signs. CARDIOVASCULAR: Regular rate and rhythm with grade 2/6 systolic murmur RESPIRATORY: Clear to auscultation. GASTROINTESTINAL: Abdomen soft, non-tender, nondistended. EXTREMITIES: No clubbing, cyanosis, or edema. right hip bandage in place, clean, dry and intact. soft wrist restraints in place NEUROLOGIC: Alert but minimal responses to questions, follows some commands. DERMATOLOGIC: No rashes or skin lesions. Objective Labs 05/24/24 06:10 05/24/24 06:10 [facility] Medical History Insomnia Age-related osteoporosis without current pathological fracture Do not resuscitate Fractures (~1997) Measles Chicken pox Hearing loss (~1949) History of urinary incontinence (~2007) Fecal incontinence (~2020) Skin cancer (~2011) Depression, recurrent Essential hypertension Alzheimer's dementia (~2014) Pessary maintenance Presence of pessary Healthy adult Surgical History No pertinent past surgical history Family History Father Pneumonia Brother Cancer Grandfather History of heart disease Social History household members: none Smoking Status: Never smoker alcohol intake: current Assessment & Plan Assessment & Plan narrative: 1. Right hip fracture S/P ORIF 05/21, present on admission and active. 2. Acute blood loss anemia secondary to fracture with hematocrit 20%, new and active, improved to 26% following 1 unit packed red blood cell transfusion 05/23/2024. 3. Hypertension, present on admission and active. 4. Dementia with nocturnal agitation, as well as agitation with certain events such as showering, present on admission and active. Plan: -aspirin b.i.d. for DVT prophylaxis. -lorazepam nightly and as needed for agitation. -added laxitive therapies changed to home pain management with norco. Resume home trazodone for sleep. Inpatient status, pending SNF vs memory care on hospice. is a proxy decision maker. TISHA 05/26, SNF, delayed due to behavioral issues. Time-Based Coding :: [TOTAL MINUTES] spent with patient and on the chart (including review of chart, obtaining history, exam, reviewing outside data, placing orders, documenting exam and treatment plan, and counseling patient) on [DATE].
[2024-05-26 20:00] VITALS: BP 168/100; PULSE 141; RESP 18; TEMP 36.8; O2SAT 94
[2024-05-26] MEDS: TRAZODONE 50 MG TABLET 25 MG PO (20:31)
[2024-05-26] MEDS: SENNOSIDES 8.6 MG TABLET 17.2 MG PO (20:31)
[2024-05-27 04:38] VITALS: BP 132/45; PULSE 82; RESP 18; TEMP 36.6; O2SAT 96
[2024-05-27 08:00] VITALS: BP 147/88; PULSE 102; TEMP 36.7; O2SAT 88
[2024-05-27] MEDS: LORazepam 0.5 MG TABLET PO ×4 (08:48→20:35)
[2024-05-27] MEDS: DOCUSATE 100 MG CAPSULE PO (08:48)
[2024-05-27] MEDS: OXYCODONE IR 10 MG TABLET PO ×4 (08:48→18:19)
[2024-05-27] MEDS: PARoxetine 20 MG TABLET 10 MG PO (08:49)
--- NOTE | 2024-05-27 09:51 | PT.IPTN ---
Current Diagnoses Fracture of unspecified part of neck of right femur, initial encounter for closed fracture (05/20/24) Other specified postprocedural states (05/20/24) Surgery Performed Operation Date: 05/21/24 14:45 Actual Procedures p Intramedullary Nailing Hip(Right) - Fabi Crockett MD Physical Therapy Treatment Note M2 PT-IP Current Condition Start: 05/22/24 10:26 Freq: NEEDED Status: Active Protocol: Document 05/26/24 13:26 MB (Rec: 05/26/24 13:41 MB [id number]) Physical Therapy Current Condition Current Condition Evaluation Date 05/24/24 Treatment Diagnosis s/p R hip ORIF; difficulty in walking Onset Date 05/20/24 M3 PT-IP Subjective Start: 05/22/24 10:26 Freq: NEEDED Status: Active Protocol: Document 05/27/24 10:31 TS (Rec: 05/27/24 10:44 TS [id number]) Subjective Physical Therapy Visit Type Type Treatment Note Visit Start Time 09:51 Visit Stop Time 10:30 Number of PAID SEARCH SPECIALIST Visits 1 Physical Therapy Visit Comments Patient Comments Pt is confused, gets agitated at times, answers some questions. M4 PT-IP Mobility and Gait Start: 05/22/24 10:26 Freq: NEEDED Status: Active Protocol: Document 05/27/24 10:31 TS (Rec: 05/27/24 10:44 TS [id number]) PT-Bed Mobility Assessment Supine to Sit Supine to Sit Total Assistance,2 Person Assistance Sit to Supine Sit to Supine Total Assistance,2 Person Assistance Scooting Scooting to Edge of Bed Dependent PT-Transfer Assessment Sit to and From Stand Sit to and from Stand Maximum Assistance,Total Assistance,2 Person Assistance Equipment Transfer Assistive Device Front Wheeled Walker Orthotic/Prosthetic Devices or Brace: No Transfers Transfer Destination Bed,Bedside Commode Transfer Technique Stand Pivot Transfer Ability Level of Assist Total Assistance,2 Person Assistance Comments Mobility Comments Supine to sit total assist for uprighting trunk to EOB, pt tolerated well. She sat EOB for changing of bedding with nursing. STS from bed total/ MaxA x2 with FWW, pt cannot follow cues, does hold onto FWW. Pt had BM and nursing assisted with pericare. Pt continued to have BM and was brought to commode total assist. After pt was done with BM she was transferred to bed total assist x2 with bed brought behind her. Pt was left in bed with nursing tending to needs. PT-Balance Assessment Sitting Balance and Reactions Static Sitting Balance Ability Fair Dynamic Sitting Balance Ability Poor Standing Balance and Reactions Static Standing Balance Ability Poor Dynamic Standing Balance Ability Poor Device Used FWW M5 PT-IP Objective Assessments Start: 05/22/24 10:26 Freq: NEEDED Status: Active Protocol: Document 05/24/24 10:30 AB (Rec: 05/24/24 12:44 AB [id number]) Orientation Orientation/Cognition Level of Alertness Confusional State Gross Range of Motion Lower Extremity ROM Impairments increase guarding during attempt to move BLE : unable to assess Strength Comments Strength Comments unable to asses due to pt's inability to follow directions and with increase guarding and agitation M7 PT-IP Assessment and Plan Start: 05/22/24 10:26 Freq: NEEDED Status: Active Protocol: Document 05/27/24 10:31 TS (Rec: 05/27/24 10:44 TS [id number]) PT Summary Assessment and Plan Potential Rehabilitation Potential Poor Summary Impairments Pain,ROM,Strength,Balance, Coordination,Cognition,Bed Mobility,Transfers,Gait, Activity Tolerance Progress Towards Goals Slow Progress - Other Assessment Summary Tonia continues to make slow progress with her mobility. She requires MaxA/total assist x2 for bed mobility, STS with FWW and for transfers. She does not follow cues well and if at all. Pt does not participate well with PT. Goals Bed Mobility Goal Minimal Assistance Transfer Goal Minimal Assistance,Front Wheeled Walker Gait Goal Minimal Assistance Gait Distance 25 Days to Meet Goals 5 Treatment Plan Physical Therapy Treatment Plan Bed Mobility Training,Transfer Training,Gait Training, Therapeutic Exercise,Balance Retraining,Post Op Education, Discharge Planning, Neuromuscular Re-ed, Coordination Retraining Other Recommendations and Next Treatment Bed mobility, sitting, Focus scooting Weight Bearing Status Weight Bearing Status Weight Bear as Tolerated Allowed Weight Bearing Amount (enter % RLE or #) (%) Recommendations To Nursing Amount of Assist Needed Mechanical Lift Discharge Recommendations Other Discharge Recommendations 24 hour total care and PT consult at d/c. Memory care facility. Transportation Needs at Discharge Stretcher/Ambulance
[2024-05-27] MEDS: HYDROCODONE/ACET 5/325 TABLET 1 TAB PO (10:44)
--- NOTE | 2024-05-27 10:57 | P.PN_ITS ---
Subjective Subjective Interval history: Daughter states she has been very drowsy this morning. Patient is alert but does not answer questions. Exam Vital Signs (past 8 hours): - 05/27/24 04:38 Temperature 97.8 F Pulse Rate 82 Respiratory Rate 18 Blood Pressure 132/45 L Pulse Oximetry 96 Oxygen Flow Rate 0 Fraction of Inspired Oxygen 28 SaO2/FiO2 Ratio 357 Oxygen Delivery Method Room Air Oxygen Flow Rate 0 Narrative Exam Narrative: 89-year-old female resting comfortably in bed in no apparent distress. [place] in place. No erythema or drainage. Right leg is warm and dry. Objective Labs 05/24/24 06:10 05/24/24 06:10 [facility] Medical History Insomnia Age-related osteoporosis without current pathological fracture Do not resuscitate Fractures (~1997) Measles Chicken pox Hearing loss (~1949) History of urinary incontinence (~2007) Fecal incontinence (~2020) Skin cancer (~2011) Depression, recurrent Essential hypertension Alzheimer's dementia (~2014) Pessary maintenance Presence of pessary Healthy adult Surgical History No pertinent past surgical history Family History Father Pneumonia Brother Cancer Grandfather History of heart disease Social History household members: none Smoking Status: Never smoker alcohol intake: current Assessment & Plan Post-op Postoperative Procedures: Procedures Operation Date: 05/21/24 14:45 Actual Procedure Side Surgeon p Intramedullary Nailing Hip Right Fabi Crockett MD Postoperative plan narrative: Weightbearing as tolerated Follow up outpatient orthopedic clinic 2 weeks postop for wound check and possible staple removal, [address] Crockett Disposition per hospitalist
--- NOTE | 2024-05-27 11:45 | CM.DPC ---
DCP Cont Reviewed chart. Spoke with therapies about their sessions with patient; patient is not participating in therapy sessions and PT/OT staff are considering discharging the therapy orders as patient often gets agitated. Recommendation is for return to memory care. Lengthy conversation with daughter this morning reviewing discharge plan. Educated daughter that with patient's severe dementia and refusing participation with therapies, she is not a rehab candidate and thus [facility] will not authorize. Daughter would like patient to return home to [facility] with hospice, as was planned. Daughter states frustration as she has been told so many things and would like patient to get rehab if it's available and if not, return to memory care with hospice. According to daughter, Olga from asked that patient be reevaluated for SNF stay before returning to . Placed call to [facility] x2 today and had to LM with staff asking that Olga CB to discuss today's plan. Patient is medically ready to leave the hospital. Awaiting discussion with . CM team following closely for coordination efforts. VICKI
--- NOTE | 2024-05-27 12:14 | PT-IP ANOTE ---
PT attempted one more treatment with third therapist and pt con't with similar presentation, agitation, inability to follow PT commands. Pt is not currently appropriate for skilled PT. Will d/c acute PT.
[2024-05-27 14:00] VITALS: BP 155/79; PULSE 125; RESP 12; TEMP 36.6; O2SAT 95
--- NOTE | 2024-05-27 16:08 | P.PN_ITS ---
Subjective Subjective Interval history: Tonia is a 89 year old female who is POD#6 s/p right hip IMN for a right hip intertrochanteric fracture. Patient had a bowel movement, still will not talk. Therapy attempts did not go well. Family would like to keep her from being over- sedated, but she continues to have issues with agitation. Ongoing discussions about optimal location for discharge , either SNF on hospice or memory care on hospice. Exam Vital Signs (past 8 hours): - 05/27/24 14:00 Temperature 97.9 F Pulse Rate 125 H Respiratory Rate 12 Blood Pressure 155/79 H Pulse Oximetry 95 Oxygen Flow Rate 0 Fraction of Inspired Oxygen 28 SaO2/FiO2 Ratio 357 Oxygen Delivery Method Room Air Oxygen Flow Rate 0 Narrative Exam Narrative: GENERAL: This is a well-nourished, well-developed patient, occasional motions and moaning, occasionally says yeah. EYES: Pupils equal round and reactive. Extraocular motions intact. No scleral icterus. No injection or drainage. ENT: Mucous membranes pink and moist. NECK: Trachea midline. No JVD, bruits or lymphadenopathy. Supple, nontender, no meningeal signs. CARDIOVASCULAR: Regular rate and rhythm with grade 2/6 systolic murmur RESPIRATORY: Clear to auscultation. GASTROINTESTINAL: Abdomen soft, non-tender, nondistended. EXTREMITIES: No clubbing, cyanosis, or edema. right hip bandage in place, clean, dry and intact. soft wrist restraints in place NEUROLOGIC: Alert. DERMATOLOGIC: No rashes or skin lesions. Objective Labs 05/24/24 06:10 05/24/24 06:10 [facility] Medical History Insomnia Age-related osteoporosis without current pathological fracture Do not resuscitate Fractures (~1997) Measles Chicken pox Hearing loss (~1949) History of urinary incontinence (~2007) Fecal incontinence (~2020) Skin cancer (~2011) Depression, recurrent Essential hypertension Alzheimer's dementia (~2014) Pessary maintenance Presence of pessary Healthy adult Surgical History No pertinent past surgical history Family History Father Pneumonia Brother Cancer Grandfather History of heart disease Social History household members: none Smoking Status: Never smoker alcohol intake: current Assessment & Plan Assessment & Plan narrative: 1. Right hip fracture S/P ORIF 05/21, present on admission and active. 2. Acute blood loss anemia secondary to fracture with hematocrit 20%, new and active, improved to 26% following 1 unit packed red blood cell transfusion 05/23/2024. 3. Hypertension, present on admission and active. 4. Dementia with nocturnal agitation, as well as agitation with certain events such as showering, present on admission and active. Plan: -aspirin b.i.d. for DVT prophylaxis. -lorazepam nightly and as needed for agitation. -stopped laxitives with patient having a bowel movement today. Inpatient status, pending SNF vs memory care on hospice. is a proxy decision maker. Pending ongoing discussions regarding optimal discharge location, i.e. SNF or [facility] memory care on hospice. Time-Based Coding :: [TOTAL MINUTES] spent with patient and on the chart (including review of chart, obtaining history, exam, reviewing outside data, placing orders, documenting exam and treatment plan, and counseling patient) on [DATE].
[2024-05-27] MEDS: ASPIRIN EC 81 MG TABLET PO (18:19)
[2024-05-27] MEDS: ACETAMINOPHEN 325 MG TABLET 650 MG PO (18:19)
[2024-05-27 20:00] VITALS: BP 153/98; PULSE 88; RESP 18; TEMP 37; O2SAT 94
[2024-05-27] MEDS: TRAZODONE 50 MG TABLET 25 MG PO (20:35)
[2024-05-28 02:00] VITALS: BP 146/87; PULSE 76; RESP 17; TEMP 37.1; O2SAT 95
[2024-05-28] MEDS: ASPIRIN EC 81 MG TABLET PO (09:14)
[2024-05-28] MEDS: PARoxetine 20 MG TABLET 10 MG PO (09:14)
[2024-05-28 10:00] VITALS: BP 171/90; PULSE 100; RESP 18; TEMP 36.6; O2SAT 94
--- NOTE | 2024-05-28 10:15 | PM.DS.1 ---
History of Present Illness History of Present Illness Date Patient Seen: 05/28/24 Time Patient Seen: 10:15 Chief complaint: right hip pain Narrative: From ED doctor: 89-year-old female with history of dementia, osteoporosis who has had falls in the past who presents with complaint of falling out of her wheelchair. Patient was at her facility staff state she slipped out of her chair. Do not describe hitting her head. They noted that her leg looked deformed and called EMS. Patient has been acting like she is painful and does not want her leg touched. She can give her name but does not answer questions overall although she is conversant. Per EMS she is at baseline in his typically noncompliant with the workups or imaging according to prior visits as well. at bedside states no anticoagulants does take medication for sleep and her dementia. Has adverse reactions to Haldol, quetiapine. No tobacco occasional alcohol, no recreational drugs. ED Course: Admitted with a fall and hip pain, diagnosed with hip fracture. Orthopedics was consulted. S: She was unable to provide history due to severe cognitive impairment from dementia. Her and daughter at the bedside. They note she was in a memory care unit and is quite ambulatory without a walker. This is her 2nd fall in several weeks. The 1st led to a broken nose. They believe that they would she was to have the hip repaired. She does have a POLST, but they are unsure what it says her what her wishes are for resuscitation. Discharge Providers Provider Date of admission: 05/20/24 18:33 Discharge Date: 05/28/24 Primary care physician: JAYCE Gonzalez Consults: 05/22/24 10:03 Consult to Physical Therapy Evaluate & Treat Comment: Physician Instructions: Evaluate and Treat 05/26/24 10:33 Consult to Physical Therapy Evaluate & Treat Comment: Physician Instructions: Evaluate and Treat Discharge provider: Sung Cesar DO Summary Hospital Course Discharge Diagnosis: 1. Right hip fracture S/P ORIF 05/21, present on admission and active. 2. Acute blood loss anemia secondary to fracture with hematocrit 20%, new and active, improved to 26% following 1 unit packed red blood cell transfusion 05/23/2024. 3. Hypertension, present on admission and active. 4. Dementia with nocturnal agitation, as well as agitation with certain events such as showering, present on admission and active. Hospital Course: This is an 89 year old female with PMH of HTN and dementia who presented with a right hip fracture which was repaired on 05/21. This was complicated by an acute blood loss anemia after surgery and difficulties with lethargy, and performing therapy reliably. Management largely focused on behavioral control, as well as optimization if hopes of ability to regain some function that was present prior to the fracture. After multiple discussions, and consultation between patient's memory care facility and nursing home facility, patient was transferred to SNF for continued attempts at physical therapy after insurance authorization. Time Spent with Patient Time spent: Greater than 30 minutes Exam Vital Signs (past 8 hours): Fraction of Inspired Oxygen 28 SaO2/FiO2 Ratio 357 Oxygen Delivery Method Room Air Oxygen Flow Rate 0 Narrative Exam Narrative: GENERAL: This is a well-nourished, well-developed patient, occasional motions and moaning, occasionally says yeah. EYES: Pupils equal round and reactive. Extraocular motions intact. No scleral icterus. No injection or drainage. ENT: Mucous membranes pink and moist. NECK: Trachea midline. No JVD, bruits or lymphadenopathy. Supple, nontender, no meningeal signs. CARDIOVASCULAR: Regular rate and rhythm with grade 2/6 systolic murmur RESPIRATORY: Clear to auscultation. GASTROINTESTINAL: Abdomen soft, non-tender, nondistended. EXTREMITIES: No clubbing, cyanosis, or edema. right hip bandage in place, clean, dry and intact. soft wrist restraints in place NEUROLOGIC: Alert. DERMATOLOGIC: No rashes or skin lesions. Objective Labs 05/24/24 06:10 05/24/24 06:10 [facility] Medical History Insomnia Age-related osteoporosis without current pathological fracture Do not resuscitate Fractures (~1997) Measles Chicken pox Hearing loss (~1949) History of urinary incontinence (~2007) Fecal incontinence (~2020) Skin cancer (~2011) Depression, recurrent Essential hypertension Alzheimer's dementia (~2014) Pessary maintenance Presence of pessary Healthy adult Surgical History No pertinent past surgical history Family History Father Pneumonia Brother Cancer Grandfather History of heart disease Social History household members: none Smoking Status: Never smoker alcohol intake: current Discharge Plan Discharge Plan Patient Disposition: SNF Transfer to: [facility] Provider Discharge Comment: 89 F with dementia, admitted with hip fracture. Attempting transfer for ongoing therapy after hip fracture repair, continue ASA 81 mg BID for 6 weeks. Discharge orders & Medications Prescriptions: New aspirin 81 mg Tablet,Delayed Release (Dr/Ec) 81 mg PO 0900,1700 41 Days Qty: 82 0RF docusate sodium 100 mg Capsule 100 mg PO BID PRN (Reason: Constipation) Qty: 60 0RF polyethylene glycol 3350 17 gram Powder In Packet 17 g PO DAILY PRN (Reason: Constipation) Qty: 30 0RF lorazepam 0.5 mg Tablet 0.5 mg PO BEDTIME Qty: 30 0RF Continued Disabled Parking Permit 1 ea Not Applicable DAILY Qty: 1 0RF trazodone 50 mg tablet 25 mg PO BEDTIME PRN (Reason: sleep) Qty: 60 0RF Rx Instructions: 1/2 to 1 tablet as needed for sleep multivitamin Tablet 1 tab PO QNOON paroxetine HCl 10 mg tablet 10 mg PO DAILY hydrocodone-acetaminophen 5-325 mg tablet 1 tab PO Q4H PRN (Reason: Pain, Moderate) 7 Days Qty: 20 0RF docusate sodium 100 mg Capsule 100 mg PO DAILY Changed lorazepam 0.5 mg tablet 0.5 mg PO Q4H PRN (Reason: Anxiety) Qty: 30 0RF Follow up/Referrals: Quyen-Shahida Thao ARNP [Primary Care Provider] - Fabi Crockett MD [Physician] - 1 Week (Follow up w/ [facility] or Dr Crockett in ortho in 1 week for wound check, and in 5 weeks w/ Dr Crockett for repeat imaging. If pt goes on hospice, no in office f/u needed; can have shmuel removed at care center sometime May 31-.) Discharge Health Status Multidrug resistant organism: No MDRO Precautions: [place] Diet/Activity/Treatments Diet: Diet as Tolerated Liquid consistency: Normal/Thin Food texture: Regular Activity: Weightbearing as tolerated to right leg. Cold/Heat Therapy: Ice to hip as needed for pain. Skin/Wound/Dressing Care Report to your healthcare provider any signs of infection, such as:: chills, fever, night sweats, unusual drainage and unusual redness Dressing: If dressing becomes wet or dirty, may replace with clean, dry gauze. Special Rehabilitation Services Reason for rehabilitation: Post-operative therapy Rehab type: Physical therapy and Occupational therapy Visit Report/Discharge Packet Stand Alone Forms: Patient Portal/API Discharge Data Primary Care Provider: Shahida Monroe
[2024-05-28] MEDS: LORazepam 0.5 MG TABLET PO (10:46)
--- NOTE | 2024-05-28 11:33 | PC.NURSE ---
Addendum entered by Yanet Montanez R.N. 05/28/24 11:36: Calrified with MD Cesar about patient's Sung catheter. stated to leave Sung in place. Let [facility] and [facility] know about patient's Sung. Original Note: Day shift: This RN called report to Mohinder Ureña. BLS arrived and this RN gave report to S transport. All belongings given to S. Packet with hard scripts and discharge information given to S. Family at bedside and aware of plan. No IV access.
--- NOTE | 2024-05-28 11:56 | CM.DPNOTE ---
DC Note [facility] in the afternoon yesterday that administrators had been in contact with [facility] administrators and patient was being considered for admission at [facility], patient's family agreeable. MANUEL Loera from [facility] conducted bedside assessment yesterday and accepted patient. Clarita in admissions then contacted [facility] and secured the auth using medical dx of hip fx with repair. Discussed plan with patient's spouse and daughter; family agreeable to patient discharging to [facility] H+R with [facility] auth secured via BLS. Explained the likelihood for an out of pocket cost for BLS transport and spouse states agreement. According to Clarita at [facility]- Family aware that if patient does not participate with therapies once at [facility], they will need to pay privately for SNF stay vs back to with hospice. HNW updated. This RAFTER CUTTING MACHINE OPERATOR coordinated the following with assist from CINDY Vargas and Clarita from [facility] today; Plan: Discharge to [facility] via BLS transport via [facility] pickling machine operator at 1100, PASRR completed. Medical necessity form for BLS completed, signed by Dr Cesar and left for the crew alongside face sheet and POLST. VICKI
== END 2024-05-28 11:20 | DRG 481 ==
LOC: ED 17:08 → AC 18:33
PROVIDERS: Internal Medicine; Orthopaedic Surgery Orthopaedic Surgery of the Spine; Admitting Provider Hospitalist; Emergency Provider Emergency Medicine; PCP Nurse Practitioner Family; Referring Provider Emergency Medicine; Visit Provider Hospitalist
PROC: 0QS606Z Reposition Right Upper Femur with Intramedullary Internal Fixation Device, Open Approach (ICD-10-PCS; CPT 27245; principal; 2024-05-21 14:45)
DX: M80.051A Age-related osteoporosis with current pathological fracture, right femur, initial encounter for fracture (principal); D62 Acute posthemorrhagic anemia; F03.C11 Unspecified dementia, severe, with agitation; I10 Essential (primary) hypertension; R14.0 Abdominal distension (gaseous); F32.A Depression, unspecified; Z91.81 History of falling
CPT/HCPCS: 36415; 36430; 71045; 73502; 73552; 76000; 80048; 80053; 81001; 85014; 85018; 85025; 85027; 85610; 85730; 86850; 86900; 86901; 87040; 87086; 93005; 94762; 96374; 96375; 97163; 97164; 97530; 99285; C1713; P9016; J0136; J0171; J0690; J0696; J1170; J2060; J2270; J2405; J7050

== ENCOUNTER 2024-07-05 15:25 | Emergency (ER) | payer MEDICARE, SELFPAY ==
[2024-05-20 20:49] VITALS: BMI 23.8
--- NOTE | 2024-07-05 15:25 | DI.CT.S_ITS ---
PROCEDURE: CT CERVICAL SPINE WO CON INDICATIONS: Dementia, fall, not on thinners TECHNIQUE: Noncontrast 3 mm thick sections acquired from the skull base to the T4 level. Sagittal and coronal reformats were then constructed. For radiation dose reduction, the following was used: automated exposure control, adjustment of mA and/or kV according to patient size. COMPARISON: [facility], CT, CT CERVICAL SPINE WO CON, 04/25/2024, 1:26. FINDINGS: Image quality: Diagnostic. Patient motion is noted. Bones: No fractures or dislocations. Grade 1 retrolisthesis at C3-4 level and grade 1 anterolisthesis at C4-5, and C5-6 levels are again seen unchanged from prior study. [id number] degenerative disc disease throughout cervical spine is again noted and unchanged. Visualized superior ribs are intact. Soft tissues: Prevertebral soft tissues are normal in thickness. No paravertebral hematomas. No apical pneumothoraces. IMPRESSION: 1. No displaced fracture or traumatic subluxation. 2. Degenerative disc disease throughout cervical spine not significantly changed from prior study. Dictated by: Dusty Sykes M.D. on 07/05/2024 at 16:05 Approved by: Dusty Sykes M.D. on 07/05/2024 at 16:06
--- NOTE | 2024-07-05 15:25 | DI.CT.S_ITS ---
PROCEDURE: CT HEAD/BRAIN WO CON INDICATIONS: Dementia, fall, not on thinners TECHNIQUE: Noncontrast 4.5 mm thick angled axial sections acquired from the foramen magnum to the vertex, with coronal and sagittal reformats. For radiation dose reduction, the following was used: automated exposure control, adjustment of mA and/or kV according to patient size. COMPARISON: [facility], CT, CT HEAD/BRAIN WO CON, 04/25/2024, 1:26. FINDINGS: Image quality: Diagnostic. CSF spaces: Basal cisterns are patent. No extra-axial fluid collections. The ventricles are symmetric in size and shape. Brain: No intracranial bleeds or masses. There is cerebral volume loss for age, with resultant ventricular and sulcal prominence. There are periventricular and deep white matter chronic small vessel ischemic changes. There is intracranial internal carotid artery atherosclerosis. Skull and face: Calvarium and visualized facial bones appear intact, without suspicious lesions. Sinuses: Visualized sinuses and mastoids are clear. IMPRESSION: No acute intracranial pathology. No significant changes from previous study. No gross acute skull fracture. Dictated by: Dusty Sykes M.D. on 07/05/2024 at 16:03 Approved by: Dusty Sykes M.D. on 07/05/2024 at 16:05
[2024-07-05 15:28] VITALS: BP 119/80; PULSE 82; RESP 18; TEMP 36.4; O2SAT 95
--- NOTE | 2024-07-05 15:42 | ED_ITS ---
HPI - Head Injury General Chief complaint: Head Injury Stated complaint: fall,hit head, no thinners. Time Seen by Provider: 07/05/24 15:25 Source: EMS Mode of arrival: EMS Limitations: other (Dementia) History of Present Illness HPI Narrative: 89-year-old female. Resident of memory Care here for evaluation of a fall. She was not on anticoagulation. It was reported that she did hit her head. Patient is unable to provide any HPI or review of systems. Related Data Home Medications Medication Instructions Recorded Confirmed multivitamin 1 tab PO QNOON 07/29/18 05/20/24 docusate sodium 100 mg capsule 100 mg PO DAILY 11/23/23 05/20/24 paroxetine HCl 10 mg tablet 10 mg PO DAILY 05/20/24 05/20/24 Previous Rx's Medication Instructions Recorded Disabled Parking Permit 1 ea Not Applicable DAILY #1 ea 11/17/22 trazodone 50 mg tablet 25 mg (1/2 x 50 mg) PO BEDTIME PRN 12/08/22 sleep #60 tabs aspirin 81 mg tablet,delayed 81 mg PO 0900,1700 41 days #82 tabs 05/28/24 release docusate sodium 100 mg capsule 100 mg PO BID PRN Constipation #60 05/28/24 caps hydrocodone 5 mg-acetaminophen 325 1 tab PO Q4H PRN Pain, Moderate 7 05/28/24 mg tablet days #20 tabs lorazepam 0.5 mg tablet 0.5 mg PO BEDTIME #30 tabs 05/28/24 lorazepam 0.5 mg tablet 0.5 mg PO Q4H PRN Anxiety #30 tabs 05/28/24 polyethylene glycol 3350 17 gram 17 g PO DAILY PRN Constipation #30 05/28/24 oral powder packet ea Allergies Allergy/AdvReac Type Severity Reaction Status Date / Time citalopram AdvReac Severe Agitated Verified 07/05/24 15:32 haloperidol AdvReac Intermediate agitation Verified 12/07/23 15:03 quetiapine AdvReac Intermediate confusion, Verified 12/07/23 15:03 agitation capsules AdvReac Intermediate unable to Uncoded 04/25/24 02:42 take capsules Review of Systems Review of Systems Narrative: Unable to obtain secondary to dementia. Patient History Medical History Insomnia Age-related osteoporosis without current pathological fracture Do not resuscitate Fractures (~1997) Measles Chicken pox Hearing loss (~1949) History of urinary incontinence (~2007) Fecal incontinence (~2020) Skin cancer (~2011) Depression, recurrent Essential hypertension Alzheimer's dementia (~2014) Pessary maintenance Presence of pessary Healthy adult Surgical History No pertinent past surgical history Family History Father Pneumonia Brother Cancer Grandfather History of heart disease Social History household members: none Smoking Status: Never smoker alcohol intake: current Smoking Status: Never smoker alcohol intake frequency: holidays/special occasions only Substance Use Type: does not use Exam Initial Vital Signs Initial Vital Signs: Vital Signs Temperature 97.6 F 07/05/24 15:28 Pulse Rate 82 07/05/24 15:28 Respiratory Rate 18 07/05/24 15:28 Blood Pressure 119/80 07/05/24 15:28 Pulse Oximetry 95 07/05/24 15:28 Oxygen Delivery Method Room Air 07/05/24 15:28 Const General: comfortable and No ill appearing HENID Head: normal to inspection and normocephalic Skin General: no rashes or lesions noted Neuro Other: Patient was moving all 4 extremities. It is reported that she was at her baseline Extrem Other: No apparent discomfort with movement of her upper and lower extremities. Pelvis is stable. Course Orders Ordered: ED Orders 07/05/24 15:25 CT cervical spine wo con Stat CT head/brain wo con Stat Vital Signs Vital signs: Vital Signs - 8 hr 07/05/24 15:28 Temperature 97.6 F Pulse Rate 82 Respiratory Rate 18 Blood Pressure 119/80 Pulse Oximetry 95 Oxygen Delivery Method Room Air MDM - Head Injury Imaging Data CT scan - head: Radiologist's Impression: PROCEDURE: CT HEAD/BRAIN WO CON INDICATIONS: Dementia, fall, not on thinners TECHNIQUE: Noncontrast 4.5 mm thick angled axial sections acquired from the foramen magnum to the vertex, with coronal and sagittal reformats. For radiation dose reduction, the following was used: automated exposure control, adjustment of mA and/or kV according to patient size. COMPARISON: [facility], CT, CT HEAD/BRAIN WO CON, 04/25/2024, 1:26. FINDINGS: Image quality: Diagnostic. CSF spaces: Basal cisterns are patent. No extra-axial fluid collections. The ventricles are symmetric in size and shape. Brain: No intracranial bleeds or masses. There is cerebral volume loss for age, with resultant ventricular and sulcal prominence. There are periventricular and deep white matter chronic small vessel ischemic changes. There is intracranial internal carotid artery atherosclerosis. Skull and face: Calvarium and visualized facial bones appear intact, without suspicious lesions. Sinuses: Visualized sinuses and mastoids are clear. IMPRESSION: No acute intracranial pathology. No significant changes from previous study. No gross acute skull fracture. CT - cervical spine: Radiologist's Impression: PROCEDURE: CT CERVICAL SPINE WO CON INDICATIONS: Dementia, fall, not on thinners TECHNIQUE: Noncontrast 3 mm thick sections acquired from the skull base to the T4 level. Sagittal and coronal reformats were then constructed. For radiation dose reduction, the following was used: automated exposure control, adjustment of mA and/or kV according to patient size. COMPARISON: [facility], CT, CT CERVICAL SPINE WO CON, 04/25/2024, 1:26. FINDINGS: Image quality: Diagnostic. Patient motion is noted. Bones: No fractures or dislocations. Grade 1 retrolisthesis at C3-4 level and grade 1 anterolisthesis at C4-5, and C5-6 levels are again seen unchanged from prior study. [id number] degenerative disc disease throughout cervical spine is again noted and unchanged. Visualized superior ribs are intact. Soft tissues: Prevertebral soft tissues are normal in thickness. No paravertebral hematomas. No apical pneumothoraces. IMPRESSION: 1. No displaced fracture or traumatic subluxation. 2. Degenerative disc disease throughout cervical spine not significantly changed from prior study. MDM Narrative Medical decision making narrative: Patient is at her baseline neurologic status per report from EMS. Does not have apparent extremity injuries. Head CT and cervical spine CT are negative. Will discharge patient back to living facility. Discharge Plan Departure Patient Disposition: Home Clinical Impression: Fall Instructions: How to Prevent Falls Activity Restrictions/Additional Instructions: Tonia can continue to take all of her medications as directed. I recommend t hat her primary provider be informed of her visit in the emergency department today. Prescriptions: No Action Disabled Parking Permit 1 ea Not Applicable DAILY Qty: 1 0RF trazodone 50 mg tablet 25 mg PO BEDTIME PRN (Reason: sleep) Qty: 60 0RF Rx Instructions: 1/2 to 1 tablet as needed for sleep multivitamin Tablet 1 tab PO QNOON paroxetine HCl 10 mg tablet 10 mg PO DAILY aspirin 81 mg Tablet,Delayed Release (Dr/Ec) 81 mg PO 0900,1700 41 Days Qty: 82 0RF docusate sodium 100 mg Capsule 100 mg PO BID PRN (Reason: Constipation) Qty: 60 0RF polyethylene glycol 3350 17 gram Powder In Packet 17 g PO DAILY PRN (Reason: Constipation) Qty: 30 0RF lorazepam 0.5 mg Tablet 0.5 mg PO BEDTIME Qty: 30 0RF hydrocodone-acetaminophen 5-325 mg tablet 1 tab PO Q4H PRN (Reason: Pain, Moderate) 7 Days Qty: 20 0RF lorazepam 0.5 mg tablet 0.5 mg PO Q4H PRN (Reason: Anxiety) Qty: 30 0RF docusate sodium 100 mg Capsule 100 mg PO DAILY Referrals: Shhaida Monroe ARNP [Primary Care Provider] - Stand Alone Forms: Patient Portal/API
[2024-07-05 16:54] VITALS: BP 120/77; PULSE 82; RESP 20; O2SAT 95
== END 2024-07-05 18:05 | disposition home or self-care (01) ==
PROVIDERS: Emergency Provider Emergency Medicine; PCP Nurse Practitioner Family
DX: S09.90XA Unspecified injury of head, initial encounter (principal); W19.XXXA Unspecified fall, initial encounter; F03.90 Unspecified dementia, unspecified severity, without behavioral disturbance, psychotic disturbance, mood disturbance, and anxiety
CPT/HCPCS: 70450; 72125; 99281; 99284

== ENCOUNTER 2024-09-10 14:42 | Emergency (ER) | payer MEDICARE, SELFPAY ==
[2024-05-20 20:49] VITALS: BMI 23.8
[2024-09-10] VITALS (12 sets, daily range): BP systolic 129–186; BP diastolic 65–92; PULSE 38–76; RESP 16–20; TEMP 36.6; O2SAT 92–97; BMI 20.1
--- NOTE | 2024-09-10 15:05 | DI.RAD.S_ITS ---
PROCEDURE: XR CHEST 1V INDICATIONS: chest pain TECHNIQUE: One view of the chest was acquired. COMPARISON: [facility], CR, XR CHEST 1V, 05/22/2024, 16:57. FINDINGS: Surgical changes and devices: None. Lungs and pleura: Lungs are clear considering reduced inspiratory volume and patient tilt and rotation leftward. No pleural effusions or pneumothorax. Mediastinum: Mediastinal contours appear normal except for previously present moderate-sized hiatal hernia behind the heart. Heart size is normal. Bones and chest wall: No suspicious bony lesions. Overlying soft tissues appear unremarkable. IMPRESSION: Limited study as discussed, no definite acute disease. Moderate-sized hiatal hernia behind the heart. Dictated by: Lee Gaspar M.D. on 09/10/2024 at 15:39 Approved by: Lee Gaspar M.D. on 09/10/2024 at 15:40
--- NOTE | 2024-09-10 15:05 | PC.NURSE ---
Call placed to [facility] poison control, will cause GI upset, N/V, recommend CMP and check CO2 level with at least 4 hour of observation.
--- NOTE | 2024-09-10 15:37 | ED.NAVMDI ---
HPI - Nausea/Vomiting/Diarrhea General Chief complaint: Nausea/Vomiting/Diarrhea Stated complaint: Vomiting Time Seen by Provider: 09/10/24 15:05 History of Present Illness HPI Narrative: 89-year-old female current resident at [facility], noted by staff to have ingestion of some amount hydrangea plant 1330, subsequently had nausea and vomiting multiple episodes. History of agitation at [facility] unchanged. No injuries or falls known. No recent fevers or chills known. Related Data Home Medications Medication Instructions Recorded Confirmed multivitamin 1 tab PO QNOON 07/29/18 05/20/24 docusate sodium 100 mg capsule 100 mg PO DAILY 11/23/23 05/20/24 paroxetine HCl 10 mg tablet 10 mg PO DAILY 05/20/24 05/20/24 Previous Rx's Medication Instructions Recorded Disabled Parking Permit 1 ea Not Applicable DAILY #1 ea 11/17/22 trazodone 50 mg tablet 25 mg (1/2 x 50 mg) PO BEDTIME PRN 12/08/22 sleep #60 tabs docusate sodium 100 mg capsule 100 mg PO BID PRN Constipation #60 05/28/24 caps hydrocodone 5 mg-acetaminophen 325 1 tab PO Q4H PRN Pain, Moderate 7 05/28/24 mg tablet days #20 tabs lorazepam 0.5 mg tablet 0.5 mg PO BEDTIME #30 tabs 05/28/24 lorazepam 0.5 mg tablet 0.5 mg PO Q4H PRN Anxiety #30 tabs 05/28/24 polyethylene glycol 3350 17 gram 17 g PO DAILY PRN Constipation #30 05/28/24 oral powder packet ea Allergies Allergy/AdvReac Type Severity Reaction Status Date / Time citalopram AdvReac Severe Agitated Verified 07/05/24 15:32 haloperidol AdvReac Intermediate agitation Verified 12/07/23 15:03 quetiapine AdvReac Intermediate confusion, Verified 12/07/23 15:03 agitation capsules AdvReac Intermediate unable to Uncoded 04/25/24 02:42 take capsules Review of Systems Review of Systems Narrative: See HPI Patient History Medical History Insomnia Age-related osteoporosis without current pathological fracture Do not resuscitate Fractures (~1997) Measles Chicken pox Hearing loss (~1950) History of urinary incontinence (~2007) Fecal incontinence (~2020) Skin cancer (~2011) Depression, recurrent Essential hypertension Alzheimer's dementia (~2014) Pessary maintenance Presence of pessary Healthy adult Surgical History No pertinent past surgical history Family History Father Pneumonia Brother Cancer Grandfather History of heart disease Social History household members: none Smoking Status: Never smoker alcohol intake: current Smoking Status: Never smoker alcohol intake frequency: holidays/special occasions only Substance Use Type: does not use Exam Narrative Exam Narrative: GENERAL: Patient quite agitated, history of dementia, agitated at baseline per at bedside HEAD: Atraumatic. Normocephalic. EYES: Pupils round and equal, difficult to assess any reactivity due to agitation. Conjugate gaze noted. No scleral icterus. No injection or drainage. ENT: Airway patent, no obvious facial injuries. No swelling to lips or tongue noted. NECK: Trachea midline. Moving neck well spontaneously. CARDIOVASCULAR: Increased rate, regular rhythm without murmurs, gallops, or rubs. RESPIRATORY: Clear to auscultation. Breath sounds equal bilaterally. No wheezes, rales, or rhonchi. GASTROINTESTINAL: Abdomen soft, non-tender, nondistended. EXTREMITIES: No edema or joint tenderness. BACK: Nontender without deformity or crepitance. No flank tenderness. NEURO: AOx3. Motor functions grossly nonfocal, moving all extremities, no obvious facial droop, quite agitated and otherwise noncooperative with motor exam. SKIN: No rash or erythema of visible areas Initial Vital Signs Initial Vital Signs: Vital Signs Pulse Rate 41 L 09/10/24 14:48 Pulse Oximetry 95 09/10/24 14:48 Course Orders Ordered: ED Orders 09/10/24 15:05 XR chest 1V Stat EKG-12 Lead Stat 09/10/24 18:28 Complete Blood Count AUTO DIFF Stat Comprehensive Metabolic Panel Stat Lipase Stat Troponin & CK Cardiac Panel Stat Discontinued Medications Ondansetron HCl (Ondansetron 4 Mg/2 Ml Inj) 4 mg IV NOW ONE Stop: 09/10/24 15:07 Last Admin: 09/10/24 16:10 Dose: Not Given Documented By: JOHN Ondansetron HCl (Ondansetron 4 Mg Odt) 4 mg SL NOW ONE Stop: 09/10/24 15:46 Last Admin: 09/10/24 15:47 Dose: 4 mg Documented By: JOHN Vital Signs Vital signs: Vital Signs - 8 hr 09/10/24 14:48 09/10/24 14:52 09/10/24 15:00 Temperature 97.8 F Pulse Rate 41 L 71 39 L Respiratory Rate 16 Blood Pressure 186/88 H Pulse Oximetry 95 97 94 Oxygen Delivery Method Room Air 09/10/24 15:30 09/10/24 16:00 09/10/24 16:30 Temperature Pulse Rate 40 L 38 L 38 L Respiratory Rate Blood Pressure Pulse Oximetry 94 93 92 Oxygen Delivery Method 09/10/24 16:53 09/10/24 16:54 09/10/24 16:54 Temperature Pulse Rate 50 L 59 L Respiratory Rate Blood Pressure 129/72 Pulse Oximetry 93 95 Oxygen Delivery Method 09/10/24 17:00 09/10/24 17:00 09/10/24 17:30 Temperature Pulse Rate 39 L 73 Respiratory Rate Blood Pressure 139/65 Pulse Oximetry 94 93 Oxygen Delivery Method 09/10/24 17:30 09/10/24 18:00 09/10/24 18:00 Temperature Pulse Rate 76 Respiratory Rate Blood Pressure 135/92 H 138/88 Pulse Oximetry 92 Oxygen Delivery Method 09/10/24 19:15 Temperature Pulse Rate 71 Respiratory Rate 20 Blood Pressure 129/81 Pulse Oximetry 92 Oxygen Delivery Method Room Air MDM - Nausea/Vomiting/Diarrhea Lab Data Attestation: I reviewed the patient's lab results. Lab results narrative: White blood cell count 6700, hemoglobin 12.7, platelets adequate. Basic metabolic panel studies negative, liver functions unremarkable, lipase negative, troponin negative. 09/10/24 18:28 09/10/24 18:28 Labs: Lab Results 09/10/24 Range/Units 18:28 WBC 6.7 (4.5-11.0) X10^3/uL RBC 4.30 (4.0-5.2) X10^6/uL Hgb 12.7 (12.0-16.0) g/dL Hct 39.0 (36-46) % MCV 90.8 (80-100) fL MCH 29.6 (26-34) PG MCHC 32.6 (30-36) % RDW 14.9 H (11.6-14.8) % Plt Count 273 (150-400) X10^3/uL Neut % (Auto) 65.7 (50-75) % Lymph % (Auto) 28.5 (25-40) % [place] % (Auto) 4.6 (3-14) % Eos % (Auto) 0.9 L (2-4) % Baso % (Auto) 0.3 (0-2) % Neut # (Auto) 4400 (4110-8757) /uL Lymph # (Auto) 1900 (2224-8730) /uL [place] # (Auto) 300 (0-900) /uL Eos # (Auto) 100 (0-450) /uL Baso # (Auto) 0 (0-100) /uL Sodium 141 (137-145) mmol/L Potassium 4.3 (3.4-5.1) mmol/L Chloride 107 (98-107) mmol/L Carbon Dioxide 30 (22-32) mmol/L BUN 21 H (7-17) mg/dL Creatinine 0.50 L (0.52-1.04) mg/dL Estimated GFR > 60 (>60) mL/min BUN/Creatinine Ratio 42.0 H (6-22) Glucose 108 (80-110) mg/dL Calcium 9.1 (8.4-10.2) mg/dL Total Bilirubin 0.4 (0.2-1.3) mg/dL AST 28 (14-36) IU/L ALT 17 (<35) IU/L Alkaline Phosphatase 106 (38-126) U/L Total Creatine Kinase 27 L (30-135) U/L Troponin I < 0.012 (0.01-0.034) ng/mL Total Protein 6.3 (6.3-8.2) g/dL Albumin 3.6 (3.5-5.0) g/dL Globulin 2.7 (1.7-4.1) g/dL Albumin/Globulin Ratio 1.3 (1.0-2.8) Lipase 106 (23-300) U/L ECG Data Attestation: I personally reviewed and interpreted this ECG as follows: Interpretation: Sinus tachycardia with rate 108, no obvious ST segment elevation or depression changes. HI 158, QRS 78, QTC 447. MDM Narrative Medical decision making narrative: 89-year-old female resident at [facility] care unit had hydration Geovanna plant ingestion a proximally 130 p.m. today and subsequent multiple episodes of nonbloody emesis. Poison control contacted, apparently the plan was identified and confirmed to be hydrate angio, could have risk of cyanide poisoning if truly ingested. Observation period of 4 hours recommended. Antiemetics if able. IV fluids if able. Patient has significant agitation as baseline. Patient observed through 1844, baseline agitation, otherwise no concerning new symptoms. Transported back via to memory care unit same facility. Encouraged to have her living area and any other areas free of plans that she might ingest. Discharge Plan Departure Patient Disposition: Home Clinical Impression: Foreign body ingestion, History of dementia Activity Restrictions/Additional Instructions: History of dementia, at [facility] facility had ingestion of Hydrangea plant, poison control was consulted, patient had emesis shortly after ingestion, observe for 4 hours. Observation. In the 4 hours as recommended by poison control. No obvious toxicity changes. Discharge back to [facility] care unit. Encouraged to have clearing of the room and area of any plants that could be ingested by patients there. Prescriptions: No Action Disabled Parking Permit 1 ea Not Applicable DAILY Qty: 1 0RF trazodone 50 mg tablet 25 mg PO BEDTIME PRN (Reason: sleep) Qty: 60 0RF Rx Instructions: 1/2 to 1 tablet as needed for sleep multivitamin Tablet 1 tab PO QNOON paroxetine HCl 10 mg tablet 10 mg PO DAILY docusate sodium 100 mg Capsule 100 mg PO BID PRN (Reason: Constipation) Qty: 60 0RF polyethylene glycol 3350 17 gram Powder In Packet 17 g PO DAILY PRN (Reason: Constipation) Qty: 30 0RF lorazepam 0.5 mg Tablet 0.5 mg PO BEDTIME Qty: 30 0RF hydrocodone-acetaminophen 5-325 mg tablet 1 tab PO Q4H PRN (Reason: Pain, Moderate) 7 Days Qty: 20 0RF lorazepam 0.5 mg tablet 0.5 mg PO Q4H PRN (Reason: Anxiety) Qty: 30 0RF docusate sodium 100 mg Capsule 100 mg PO DAILY Referrals: Shahida Monroe ARNP [Primary Care Provider] - Stand Alone Forms: Patient Portal/API/Survey
[2024-09-10] MEDS: ONDANSETRON 4 MG ODT SL (15:47)
[2024-09-10 18:41] LABS: Add Manual Diff / Slide Review NO; Basophils Absolute Auto 0 /uL (0-100); Basophils Percent Auto 0.3 % (0-2); Eosinophils Absolute Auto 100 /uL (0-450); Eosinophils Percent Auto 0.9 % (2-4); Hemoglobin 12.7 g/dL (12.0-16.0); Lymphocytes Absolute Auto 1900 /uL (1100-4500); Lymphocytes Percent Auto 28.5 % (25-40); Mean Corpuscular HGB Conc 32.6 % (30-36); Mean Corpuscular Hemoglobin 29.6 PG (26-34); Mean Corpuscular Volume 90.8 fL (80-100); Monocytes Absolute Auto 300 /uL (0-900); Monocytes Percent Auto 4.6 % (3-14); Neutrophils Absolute Auto 4400 /uL (1500-7000); Neutrophils Percent Auto 65.7 % (50-75); Platelet Count 273 X10^3/uL (150-400); Red Cell Distribution Width 14.9 % (11.6-14.8); White Blood Cell Count 6.7 X10^3/uL (4.5-11.0)
[2024-09-10 18:52] LABS: Alanine Aminotransferase 17 IU/L (<35); Albumin 3.6 g/dL (3.5-5.0); Albumin Globulin Ratio 1.3 (1.0-2.8); Alkaline Phosphatase 106 U/L (38-126); Aspartate Aminotransferase 28 IU/L (14-36); Bilirubin Total 0.4 mg/dL (0.2-1.3); Blood Urea Nitrogen 21 mg/dL (7-17); Calcium 9.1 mg/dL (8.4-10.2); Carbon Dioxide 30 mmol/L (22-32); Chloride 107 mmol/L (98-107); Creatine Kinase 27 U/L (30-135); Estimated Glomerular Filt Rate > 60 mL/min (>60); Globulin 2.7 g/dL (1.7-4.1); Glucose 108 mg/dL (80-110); HEMOLYSIS 16 (0-50); Lipase 106 U/L (23-300); Potassium 4.3 mmol/L (3.4-5.1); Sodium 141 mmol/L (137-145); Total Protein 6.3 g/dL (6.3-8.2)
[2024-09-10 19:04] LABS: Troponin I < 0.012 ng/mL (0.01-0.034)
== END 2024-09-10 19:17 | disposition home or self-care (01) ==
PROVIDERS: Emergency Provider Emergency Medicine; PCP Nurse Practitioner Family
DX: T18.9XXA Foreign body of alimentary tract, part unspecified, initial encounter (principal); F03.90 Unspecified dementia, unspecified severity, without behavioral disturbance, psychotic disturbance, mood disturbance, and anxiety
CPT/HCPCS: 71045; 80053; 82550; 83690; 84484; 85025; 99283; 99284

== ENCOUNTER 2025-05-13 11:06 | Inpatient (IN) | payer MEDICARE, SELFPAY ==
[2024-05-20 20:49] VITALS: BMI 23.8
[2025-05-13] VITALS (18 sets, daily range): BP systolic 121–173; BP diastolic 67–113; PULSE 68–96; RESP 18–21; TEMP 36.1–37.7; O2SAT 94–98; BMI 20.5
--- NOTE | 2025-05-13 11:36 | DI.CT.S_ITS ---
PROCEDURE: CT CHEST ABD PEL WO CON INDICATIONS: Sepsis TECHNIQUE: After the administration of oral contrast, 5 mm thick sections acquired from the lung apices to the symphysis pubis. 5 mm thick coronal and sagittal reformats acquired, with additional 7 mm coronal MIP reformats through the lungs. For radiation dose reduction, the following was used: automated exposure control, adjustment of mA and/or kV according to patient size. COMPARISON: None. FINDINGS: Image quality: Diagnostic. CHEST: Lower Neck: No enlarged lymph nodes. Thyroid: No thyroid nodules which require sonographic follow up, per consensus guidelines. Axillae: No enlarged lymph nodes. Chest Wall: Unremarkable. Bones: Unremarkable. Lungs and Pleura: small De bilateral pleural effusion is seen. No pneumothorax. pendent atelectasis/small infiltrates are seen in posterior aspect of bilateral lower lobes extending to bilateral infrahilar region. Moderate centrilobular emphysema is seen. Central and peripheral airway is patent. Heart: Heart size is mildly enlarged. No pericardial effusion. Thoracic Vessels: aorta is normal in size. Prominent main pulmonary artery which can be seen associated with pulmonary vascular hypertension. 2 vessel coronary artery atherosclerotic calcifications are seen. Mediastinum and Ida: No enlarged lymph nodes. Esophagus: No wall thickening. Moderate to large hiatal hernia. ABDOMEN: Liver: No solid mass. Hepatomegaly. Multiple well-circumscribed hypodensities are seen scattered throughout liver parenchyma measures up to 3.7 x 2.6 cm in size in inferior aspect of right hepatic lobe and measures 3.28 Hounsfield unit in density likely represent hepatic cysts. Gallbladder: No radiopaque gallstones or wall thickening. Biliary ducts: No biliary dilation. Pancreas: No ductal dilation. Spleen: Size is within normal limits. Adrenal Glands: No adrenal nodules. Kidneys and Ureters: No hydronephrosis. No solid mass. No complex renal cystic lesion which requires follow up. Stomach and Bowel: Moderate fecal stasis throughout the colon is seen. Colonic diverticulosis without CT evidence of acute diverticulitis. No evidence of acute appendicitis. No abscess collection. Peritoneum: No abnormal intraperitoneal fluid. No free air. Ventral Wall: No hernia. Abdominal Nodes: No retroperitoneal or mesenteric adenopathy by size criteria. Vessels: Aorta and inferior vena cava are normal in size. PELVIS: Pelvic Organs: Unremarkable. Bladder: Unremarkable. Pelvic Nodes: No enlarged lymph nodes. Miscellaneous: Moderate size left inguinal hernia containing a short segment of small bowel loop. No evidence of incarceration. Bones: No aggressive osseous abnormality. There is prior right femoral neck ORIF. No acute vertebral body compression fracture. Chronic appearing anterior wedge compression deformity at L1 level is seen. IMPRESSION: 1. Small bilateral pleural effusion with adjacent bibasilar infiltrate/atelectasis. No pneumothorax. Moderate centrilobular emphysema. 2. No abnormally enlarged lymph nodes are seen in chest, abdomen or pelvis. 3. Cardiomegaly, no pericardial effusion. Prominent size of main pulmonary artery which can be seen associated with pulmonary vascular hypertension. No thoracic aortic aneurysm. 4. Numerous well-circumscribed hypodensities scattered in liver parenchyma likely represent hepatic cysts. 5. No bowel obstruction or abnormal bowel wall thickening. Colonic diverticulosis without CT evidence of acute diverticulitis. Moderate constipation. No abscess collection. No free fluid or free air. 6. Other chronic findings as above. Dictated by: Dusty Sykes M.D. on 05/13/2025 at 13:59 Approved by: Dusty Sykes M.D. on 05/13/2025 at 14:06
--- NOTE | 2025-05-13 11:40 | ED.GENADULT ---
HPI - General Adult General Chief complaint: Altered Mental Status Stated complaint: Shaky, Chills Time Seen by Provider: 05/13/25 11:26 Source: EMS Mode of arrival: EMS History of Present Illness HPI narrative: Patient brought in by ambulance from [facility]. Patient was shaky and has chills and tremors. Patient POLST form signed and completed DNR DNI with full treatment. [id number] was contacted but is currently out [place] the [place] and unable to contact. Patient is not answering to name or instructions. She is essentially pulling her covers up and shivering. Is not speaking at this time. However is moving all 4 extremities. On passive range staton is not grimacing on movement of the bilateral shoulders elbows wrists pelvis hips knees and ankles. I left voicemail for daughter to call us. Phone number [phone]. I did try calling spouse's phone but went to voicemail. Related Data Home Medications ?Medication ?Instructions ?Recorded ?Confirmed multivitamin 1 tab PO QNOON 07/29/18 05/13/25 docusate sodium 100 mg capsule 100 mg PO DAILY 11/23/23 05/13/25 paroxetine HCl 10 mg tablet 10 mg PO DAILY 05/20/24 05/13/25 aspirin 81 mg tablet,delayed 81 mg PO DAILY 05/13/25 05/13/25 release (Adult Aspirin Regimen) loperamide 2 mg capsule 2 mg PO QID PRN loose stool 05/13/25 05/13/25 (Anti-Diarrheal (loperamide)) magnesium hydroxide 400 mg/5 mL 400 mg PO DAILY PRN constipation 05/13/25 05/13/25 oral suspension (Milk of Magnesia) sennosides 8.6 mg tablet 17.2 mg PO BEDTIME PRN constipation 05/13/25 05/13/25 (Black-Draught Lax-Senna) Previous Rx's ?Medication ?Instructions ?Recorded trazodone 50 mg tablet 25 mg (1/2 x 50 mg) PO BEDTIME PRN 12/08/22 sleep #60 tabs hydrocodone 5 mg-acetaminophen 325 1 tab PO Q4H PRN Pain, Moderate 7 05/28/24 mg tablet days #20 tabs lorazepam 0.5 mg tablet 0.5 mg PO Q4H PRN Anxiety #30 tabs 05/28/24 Allergies Allergy/AdvReac Type Severity Reaction Status Date / Time citalopram AdvReac Severe Agitated Verified 07/05/24 15:32 haloperidol AdvReac Intermediate agitation Verified 12/07/23 15:03 quetiapine AdvReac Intermediate confusion, Verified 12/07/23 15:03 agitation capsules AdvReac Intermediate unable to Uncoded 04/25/24 02:42 take capsules Review of Systems Review of Systems Narrative: GENERAL: Positive tremors and chills, fatigue, malaise, negative fever, sweats. HEENT: Negative sinus pain, ear pain, sore throat RESPIRATORY: Negative dyspnea, cough CARDIOVASCULAR: Negative chest pain, palpitations GASTROINTESTINAL: Negative vomiting, nausea, abdominal pain : Negative dysuria, frequency, hematuria MUSCULOSKELETAL: Negative muscle or bony pain SKIN: Negative rash, skin lesions NEUROLOGIC: Negative weakness, numbness positive confusion ROS Unobtainable: All systems reviewed & are unremarkable except as noted in HPI and below Patient History Medical History Insomnia Age-related osteoporosis without current pathological fracture Do not resuscitate Fractures (~1997) Measles Chicken pox Hearing loss (~1949) History of urinary incontinence (~2007) Fecal incontinence (~2020) Skin cancer (~2011) Depression, recurrent Essential hypertension Alzheimer's dementia (~2014) Pessary maintenance Presence of pessary Healthy adult Surgical History No pertinent past surgical history Family History Father Pneumonia Brother Cancer Grandfather History of heart disease Social History household members: none Smoking Status: Never smoker alcohol intake: former Smoking Status: Never smoker alcohol intake frequency: holidays/special occasions only Exam Narrative Exam Narrative: GENERAL: in no distress, not toxic not dyspneic HEAD: Normocephalic. EYES: Pupils equal round ENT: Mucous membranes moist. NECK: Trachea midline. CARDIOVASCULAR: Regular rate and rhythm RESPIRATORY: Clear to auscultation. Breath sounds equal bilaterally. No wheezes, rales, or rhonchi. GASTROINTESTINAL: Abdomen soft, non-tender EXTREMITIES: No gross deformities. BACK: No flank tenderness. NEURO: Patient moving all 4 extremities spontaneously. No seizure activity. Patient not following commands or instructions. Does say nonsensical words at times. SKIN: Warm and dry PSYCH: Not anxious, is cooperative Initial Vital Signs Initial Vital Signs: Vital Signs Pulse Rate 96 H 05/13/25 11:16 Pulse Oximetry 98 05/13/25 11:16 Course Orders Ordered: Acetaminophen (Acetaminophen 325 Mg Tablet) 650 mg PO Q6H PRN PRN Reason: Fever/Mild Pain (1-3) Hydrocodone Bitart/Acetaminophen (Hydrocodone/Acet 5/325 Tablet) 1 tab PO Q4H PRN PRN Reason: Pain, Moderate Heparin Sodium (Porcine) (Heparin 5,000 Unit/Ml Vial) 5,000 unit SUBCUT BID [facility] Last Admin: 05/13/25 23:04 Dose: 5,000 unit Documented By: CIPRIANO Hydromorphone HCl (Hydromorphone Hcl 0.5 Mg/0.5 Ml Syringe) 0.5 mg IV Q2H PRN PRN Reason: Pain, Severe (7-10) Lactated Ringer's (Lactated Ringers) 1,000 mls @ 100 mls/hr IV CONT [facility] Last Admin: 05/14/25 05:47 Dose: 100 mls/hr Documented By: Infusion: 05/14/25 05:29 Dose: Infused Documented By: Admin: 05/13/25 19:29 Dose: 100 mls/hr Documented By: DANNY Lorazepam (Lorazepam 0.5 Mg Tablet) 0.5 mg PO Q4H PRN PRN Reason: Anxiety Lorazepam (Lorazepam 0.5 Mg Tablet) 0.5 mg PO BEDTIME [facility] Last Admin: 05/13/25 20:36 Dose: 0.5 mg Documented By: CIPRIANO Naloxone HCl (Naloxone 0.4 Mg/Ml Vial) 0.2 mg IV Q2MIN PRN PRN Reason: Opiate Reversal Ondansetron HCl (Ondansetron 4 Mg/2 Ml Inj) 4 mg IV Q8HR PRN PRN Reason: Nausea And Vomiting Polyethylene Glycol (Polyethylene Glycol 3350 17 Gm Powd.Pack) 17 gm PO DAILY PRN PRN Reason: Constipation Trazodone HCl (Trazodone 50 Mg Tablet) 25 mg PO BEDTIME PRN PRN Reason: Sleep Discontinued Medications Sodium Chloride (Normal Saline 0.9%) 1,000 mls @ 1,000 mls/hr IV BOLUS ONE Stop: 05/13/25 12:35 Last Infusion: 05/13/25 19:39 Dose: Infused Documented By: Admin: 05/13/25 17:09 Dose: 1,000 mls/hr Documented By: LM Ceftriaxone Sodium 2,000 mg/ (Sodium Chloride) 100 mls @ 200 mls/hr IV NOW ONE Stop: 05/13/25 16:15 Last Infusion: 05/13/25 18:01 Dose: Infused Documented By: Admin: 05/13/25 17:09 Dose: 200 mls/hr Documented By: LM Ketorolac Tromethamine (Ketorolac 30 Mg/Ml Vial) 15 mg IV NOW ONE Stop: 05/13/25 18:22 Last Admin: 05/13/25 19:28 Dose: 15 mg Documented By: ES Morphine Sulfate (Morphine 4 Mg/Ml Inj) 4 mg IV NOW ONE Stop: 05/13/25 16:15 Last Admin: 05/13/25 17:09 Dose: 4 mg Documented By: JEREMI Vital Signs Vital signs: Vital Signs - 8 hr 05/13/25 11:16 05/13/25 11:19 05/13/25 11:30 Temperature 99.8 F H Pulse Rate 96 H 95 H 94 H Respiratory Rate 18 Blood Pressure Pulse Oximetry 98 94 97 Oxygen Delivery Method Room Air 05/13/25 11:30 05/13/25 11:45 05/13/25 11:45 Temperature Pulse Rate 86 Respiratory Rate Blood Pressure 132/76 132/83 Pulse Oximetry 96 Oxygen Delivery Method 05/13/25 12:00 05/13/25 12:01 05/13/25 12:01 Temperature Pulse Rate 87 84 Respiratory Rate Blood Pressure 173/81 H Pulse Oximetry 95 96 Oxygen Delivery Method 05/13/25 12:16 05/13/25 12:16 05/13/25 12:30 Temperature Pulse Rate 84 84 Respiratory Rate Blood Pressure 172/113 H Pulse Oximetry 97 95 Oxygen Delivery Method 05/13/25 12:31 05/13/25 12:31 05/13/25 12:45 Temperature Pulse Rate 87 Respiratory Rate Blood Pressure 149/67 H 143/85 H Pulse Oximetry 95 Oxygen Delivery Method 05/13/25 12:45 05/13/25 13:00 05/13/25 13:00 Temperature Pulse Rate 81 84 Respiratory Rate Blood Pressure 142/76 H Pulse Oximetry 94 95 Oxygen Delivery Method 05/13/25 13:15 05/13/25 13:15 05/13/25 13:28 Temperature Pulse Rate 77 Respiratory Rate Blood Pressure 151/83 H 135/87 Pulse Oximetry 98 Oxygen Delivery Method 05/13/25 13:28 05/13/25 13:30 05/13/25 13:31 Temperature Pulse Rate 84 86 Respiratory Rate Blood Pressure 146/108 H Pulse Oximetry 97 98 Oxygen Delivery Method 05/13/25 13:31 05/13/25 14:00 Temperature Pulse Rate 86 80 Respiratory Rate Blood Pressure Pulse Oximetry 98 96 Oxygen Delivery Method Medical Decision Making Lab Data 05/14/25 06:21 05/14/25 06:21 Labs: Lab Results 05/13/25 05/13/25 05/13/25 Range/Units 11:14 12:05 12:12 WBC 7.5 (4.5-11.0) X10^3/uL RBC 3.90 L (4.0-5.2) X10^6/uL Hgb 11.8 L (12.0-16.0) g/dL Hct 35.1 L (36-46) % MCV 90.1 (80-100) fL MCH 30.3 (26-34) PG MCHC 33.6 (30-36) % RDW 13.0 (11.6-14.8) % Plt Count 335 (150-400) X10^3/uL Neut % (Auto) 69.5 (50-75) % Lymph % (Auto) 16.9 L (25-40) % [place] % (Auto) 11.4 (3-14) % Eos % (Auto) 1.7 L (2-4) % Baso % (Auto) 0.5 (0-2) % Neut # (Auto) 5200 (1973-0838) /uL Lymph # (Auto) 1300 (8496-8088) /uL [place] # (Auto) 900 (0-900) /uL Eos # (Auto) 100 (0-450) /uL Baso # (Auto) 0 (0-100) /uL PT 12.3 (9.4-12.5) SECONDS INR 1.1 (0.9-1.3) APTT 26 (25.1-36.5) SECONDS Sodium 140 (137-145) mmol/L Potassium 4.9 (3.4-5.1) mmol/L Chloride 103 (98-107) mmol/L Carbon Dioxide 28 (22-32) mmol/L BUN 16 (7-17) mg/dL Creatinine 0.60 (0.52-1.04) mg/dL Estimated GFR > 60 (>60) mL/min BUN/Creatinine Ratio 26.7 H (6-22) Glucose 99 (70-99) mg/dL Calcium 9.4 (8.4-10.2) mg/dL Total Bilirubin 0.5 (0.2-1.3) mg/dL AST 25 (14-36) IU/L ALT 16 (<35) IU/L Alkaline Phosphatase 82 (38-126) U/L Total Protein 7.2 (6.3-8.2) g/dL Albumin 4.0 (3.5-5.0) g/dL Globulin 3.2 (1.7-4.1) g/dL Albumin/Globulin Ratio 1.3 (1.0-2.8) Urine Color Yellow Urine Appearance Clear Urine pH 7.0 (4.5-8.0) Ur Specific Steele <=1.005 (1.000-1.035) Urine Protein Negative (Negative) Urine Glucose (UA) Negative (Negative) g/dL Urine Ketones Negative (NEGATIVE) Urine Occult Blood Negative (Negative) Urine Nitrate Negative (Negative) Urine Bilirubin Negative (NEGATIVE) Urine Urobilinogen 1.0 (0.2) E.U./dL Ur Leukocyte Esterase 3+ H (NEGATIVE) Urine RBC None seen (0-5/HPF) Urine WBC 5-10/hpf H (0-5/HPF) Ur Squamous Epith Cells None seen (0-5/HPF) Urine Bacteria Many (>30) H (None) Ur Culture Indicated? Specimen cultured Vol Urine Centrifuged 10ml (spun) Chlamy pneumoniae PCR Not detected (Not Detect) Adenovirus (PCR) Not detected (Not Detect) B. pertussis DNA (PCR) Not detected (Not Detect) B.parapertussis DNA PCR Not detected (Not Detecte) Coronavirus OC43 (PCR) Not detected (Not Detect) Coronavirus HKU1 (PCR) Not detected (Not Detect) Coronavirus 229E (PCR) Not detected (Not Detect) SARS-CoV-2 (PCR) Not detected (Not Detecte) Coronavirus NL63 (PCR) Not detected (Not Detect) Human Metapneumovir PCR Not detected (Not Detect) Influenza Type A (PCR) Not detected (Not Detect) Influenza Type B (PCR) Not detected (Not Detect) M. pneumoniae (PCR) Not detected (Not Detect) Parainfluenza 1 (PCR) Not detected (Not Detect) Parainfluenza 2 (PCR) Not detected (Not Detect) Parainfluenza 3 (PCR) Not detected (Not Detect) Parainfluenza 4 (PCR) Not detected (Not Detect) RSV (PCR) Not detected (Not Detect) Entero/Rhino (PCR) Not detected (Not Detect) Imaging Data CT chest abdomen pelvis: Radiologist's Impression: [address] [address] [address] Scan Report Signed Patient: Tonia Ariza MR#: [id number] : 1935 Acct:[id number] Age/Sex: 89 / F Date of Service: 05/13/25 Loc: ED Accession Number: [id number] Procedure: CT chest abd pel wo con Ordering Provider: Rayo Murray MD PROCEDURE: CT CHEST ABD PEL WO CON INDICATIONS: Sepsis TECHNIQUE: After the administration of oral contrast, 5 mm thick sections acquired from the lung apices to the symphysis pubis. 5 mm thick coronal and sagittal reformats acquired, with additional 7 mm coronal MIP reformats through the lungs. For radiation dose reduction, the following was used: automated exposure control, adjustment of mA and/or kV according to patient size. COMPARISON: None. FINDINGS: Image quality: Diagnostic. CHEST: Lower Neck: No enlarged lymph nodes. Thyroid: No thyroid nodules which require sonographic follow up, per consensus guidelines. Axillae: No enlarged lymph nodes. Chest Wall: Unremarkable. Bones: Unremarkable. Lungs and Pleura: small De bilateral pleural effusion is seen. No pneumothorax. pendent atelectasis/small infiltrates are seen in posterior aspect of bilateral lower lobes extending to bilateral infrahilar region. Moderate centrilobular emphysema is seen. Central and peripheral airway is patent. Heart: Heart size is mildly enlarged. No pericardial effusion. Thoracic Vessels: aorta is normal in size. Prominent main pulmonary artery which can be seen associated with pulmonary vascular hypertension. 2 vessel coronary artery atherosclerotic calcifications are seen. Mediastinum and Ida: No enlarged lymph nodes. Esophagus: No wall thickening. Moderate to large hiatal hernia. ABDOMEN: Liver: No solid mass. Hepatomegaly. Multiple well-circumscribed hypodensities are seen scattered throughout liver parenchyma measures up to 3.7 x 2.6 cm in size in inferior aspect of right hepatic lobe and measures 3.28 Hounsfield unit in density likely represent hepatic cysts. Gallbladder: No radiopaque gallstones or wall thickening. Biliary ducts: No biliary dilation. Pancreas: No ductal dilation. Spleen: Size is within normal limits. Adrenal Glands: No adrenal nodules. Kidneys and Ureters: No hydronephrosis. No solid mass. No complex renal cystic lesion which requires follow up. Stomach and Bowel: Moderate fecal stasis throughout the colon is seen. Colonic diverticulosis without CT evidence of acute diverticulitis. No evidence of acute appendicitis. No abscess collection. Peritoneum: No abnormal intraperitoneal fluid. No free air. Ventral Wall: No hernia. Abdominal Nodes: No retroperitoneal or mesenteric adenopathy by size criteria. Vessels: Aorta and inferior vena cava are normal in size. PELVIS: Pelvic Organs: Unremarkable. Bladder: Unremarkable. Pelvic Nodes: No enlarged lymph nodes. Miscellaneous: Moderate size left inguinal hernia containing a short segment of small bowel loop. No evidence of incarceration. Bones: No aggressive osseous abnormality. There is prior right femoral neck ORIF. No acute vertebral body compression fracture. Chronic appearing anterior wedge compression deformity at L1 level is seen. IMPRESSION: 1. Small bilateral pleural effusion with adjacent bibasilar infiltrate/atelectasis. No pneumothorax. Moderate centrilobular emphysema. 2. No abnormally enlarged lymph nodes are seen in chest, abdomen or pelvis. 3. Cardiomegaly, no pericardial effusion. Prominent size of main pulmonary artery which can be seen associated with pulmonary vascular hypertension. No thoracic aortic aneurysm. 4. Numerous well-circumscribed hypodensities scattered in liver parenchyma likely represent hepatic cysts. 5. No bowel obstruction or abnormal bowel wall thickening. Colonic diverticulosis without CT evidence of acute diverticulitis. Moderate constipation. No abscess collection. No free fluid or free air. 6. Other chronic findings as above. Dictated by: Dusty Sykes M.D. on 05/13/2025 at 13:59 Approved by: Dusty Sykes M.D. on 05/13/2025 at 14:06 CT scan - head: Radiologist's Impression: [address] [address] [address] Scan Report Signed Patient: Tonia Ariza MR#: [id number] : 1935 Acct:[id number] Age/Sex: 89 / F Date of Service: 05/13/25 Loc: ED Accession Number: [id number] Procedure: CT head/brain wo con Ordering Provider: Rayo Murray MD PROCEDURE: CT HEAD/BRAIN WO CON INDICATIONS: Altered mental status TECHNIQUE: Noncontrast 4.5 mm thick angled axial sections acquired from the foramen magnum to the vertex, with coronal and sagittal reformats. For radiation dose reduction, the following was used: automated exposure control, adjustment of mA and/or kV according to patient size. COMPARISON: [facility], CT, HEAD WITHOUT CONTRAST, 09/06/2016, 8:43. [facility], CT, CT HEAD/BRAIN WO CON, 04/25/2024, 1:26. [facility], CT, CT CHEST ABD PEL WO CON, 05/13/2025, 13:17. [facility], CT, CT HEAD/BRAIN WO CON, 07/05/2024, 15:41. FINDINGS: Image quality: This examination is highly limited by involuntary motion artifact. CSF spaces: Basal cisterns are patent. No extra-axial fluid collections. The ventricles are symmetric in size and shape. Brain: No intracranial bleeds or mass effect. There is cerebral volume loss, with resultant ventricular and sulcal prominence. There are periventricular and deep white matter chronic small vessel ischemic changes. There is intracranial internal carotid artery atherosclerosis. Skull and face: Calvarium and visualized facial bones appear intact, without suspicious lesions. Sinuses: Visualized sinuses and mastoids are clear. IMPRESSION: Study highly limited by motion artifact, yet without a mu acute intracranial abnormality identified. Dictated by: Jamil Patel M.D. on 05/13/2025 at 15:40 Approved by: Jamil Patel M.D. on 05/13/2025 at 15:41 MDM Narrative Medical decision making narrative: Patient brought in by ambulance from [facility]. Patient was shaky and has chills and tremors. Patient POLST form signed and completed DNR DNI with full treatment. [id number] was contacted but is currently [place] and unable to contact. Patient is not answering to name or instructions. She is essentially pulling her covers up and shivering. Is not speaking at this time. However is moving all 4 extremities. On passive range staton is not grimacing on movement of the bilateral shoulders elbows wrists pelvis hips knees and ankles. I left voicemail for daughter to call us. Phone number [phone]. I did try calling spouse's phone but went to voicemail. After history and exam, CBC CMP urinalysis CT chest abdomen pelvis respiratory panel normal saline MDM Differential considered: Includes but not limited to sepsis pneumonia UTI dehydration Medical records reviewed: No recent visit for this complaint Lab Test results independently reviewed as above. Pertinent findings: WBC 7.5 hemoglobin 11.8 sodium 140 potassium 4.9 BUN 16 creatinine 0.6 urinalysis positive leukocyte esterase positive bacteria WBC 5-10 Imaging studies independently reviewed: CT chest abdomen pelvis no acute finding, CT head no acute finding Consultations: 5:31 p.m.. Spoke with hospitalist, dr flaherty, will admit Re-evaluations: 4:15 p.m.. Updated daughter at bedside results and she states she is not surprised UTI finding and explains patient's behavior this is happened before in the past. She agrees patient to be admitted as [facility] would not be able to manage her care and this state. Discussion: Appropriate for admission for IV antibiotics IV hydration. Diagnosis: Acute UTI Discharge Plan Departure Patient Disposition: Admitted as Observation Clinical Impression: Acute UTI Altered mental status Qualifiers: Altered mental status type: unspecified Qualified Code(s): R41.82 - Altered mental status, unspecified Admit Date/Time: 05/13/25 17:31 Admit Provider: Lee Flaherty
[2025-05-13 12:13] LABS: Add Manual Diff / Slide Review NO; Hematocrit 35.1 % (36-46); Hemoglobin 11.8 g/dL (12.0-16.0); Lymphocytes Absolute Auto 1300 /uL (1100-4500); Mean Corpuscular HGB Conc 33.6 % (30-36); Mean Corpuscular Hemoglobin 30.3 PG (26-34); Mean Corpuscular Volume 90.1 fL (80-100); Platelet Count 335 X10^3/uL (150-400)
[2025-05-13 12:22] LABS: INR 1.1 (0.9-1.3); Prothrombin Time 12.3 SECONDS (9.4-12.5)
--- NOTE | 2025-05-13 12:24 | PC.NURSE ---
Pt arrived to ED via EMS after shower because of altered mental stauts. [facility] RN reported to EMS that pt was shaking and humming which is not pt's baseline. Pt arrived to ED and combative when ED staff attempts to perform nursing tasks. Pt pulling off bp cuff and not answering triage questions. RN spoke with daughter and primitivo states pt has limited verbal communication, severely demented and likes to be left alone at baseline. Primitivo reports that pt requires lorazepam when she takes showers and did not get lorazepam today prior to getting shower. Daughter on her way from [place], [place] and agrees to plan of care for pt.
[2025-05-13 12:25] LABS: PTT Partial Thromboplastin Tim 26 SECONDS (25.1-36.5)
[2025-05-13 12:26] LABS: Appearance Urine UA CLEAR; Bilirubin Urine UA NEGATIVE (NEGATIVE); Color Urine UA YELLOW; Glucose Urine UA NEGATIVE (Negative); Ketones Urine UA NEGATIVE (NEGATIVE); Leukocyte Esterase Urine UA 3+ (NEGATIVE); Nitrite Urine UA NEGATIVE (Negative); Occult Blood Urine UA NEGATIVE (Negative); Protein Urine UA NEGATIVE (Negative); Specific Gravity Urine UA <=1.005 (1.000-1.035); Urobilinogen Urine UA 1.0 E.U./dL (0.2)
[2025-05-13 12:28] LABS: pH Urine UA 7.0 (4.5-8.0)
[2025-05-13 12:30] LABS: Alanine Aminotransferase 16 IU/L (<35); Albumin 4.0 g/dL (3.5-5.0); Albumin Globulin Ratio 1.3 (1.0-2.8); Alkaline Phosphatase 82 U/L (38-126); Blood Urea Nitrogen 16 mg/dL (7-17); Calcium 9.4 mg/dL (8.4-10.2); Carbon Dioxide 28 mmol/L (22-32); Chloride 103 mmol/L (98-107); Estimated Glomerular Filt Rate > 60 mL/min (>60); Globulin 3.2 g/dL (1.7-4.1); Glucose 99 mg/dL (70-99); HEMOLYSIS < 15 (0-50); Potassium 4.9 mmol/L (3.4-5.1); Sodium 140 mmol/L (137-145); Total Protein 7.2 g/dL (6.3-8.2)
[2025-05-13 12:34] LABS: Coronavirus NL 63 Not Detected (Not Detect); SARS- CoV-2 Not Detected (Not Detecte)
[2025-05-13 12:34] LABS: Culture Indicated Urine Specimen Cultured
--- NOTE | 2025-05-13 16:18 | DI.CT.S_ITS ---
PROCEDURE: CT HEAD/BRAIN WO CON INDICATIONS: Altered mental status TECHNIQUE: Noncontrast 4.5 mm thick angled axial sections acquired from the foramen magnum to the vertex, with coronal and sagittal reformats. For radiation dose reduction, the following was used: automated exposure control, adjustment of mA and/or kV according to patient size. COMPARISON: [facility], CT, HEAD WITHOUT CONTRAST, 09/06/2016, 8:43. [facility], CT, CT HEAD/BRAIN WO CON, 04/25/2024, 1:26. [facility], CT, CT CHEST ABD PEL WO CON, 05/13/2025, 13:17. [facility], CT, CT HEAD/BRAIN WO CON, 07/05/2024, 15:41. FINDINGS: Image quality: This examination is highly limited by involuntary motion artifact. CSF spaces: Basal cisterns are patent. No extra-axial fluid collections. The ventricles are symmetric in size and shape. Brain: No intracranial bleeds or mass effect. There is cerebral volume loss, with resultant ventricular and sulcal prominence. There are periventricular and deep white matter chronic small vessel ischemic changes. There is intracranial internal carotid artery atherosclerosis. Skull and face: Calvarium and visualized facial bones appear intact, without suspicious lesions. Sinuses: Visualized sinuses and mastoids are clear. IMPRESSION: Study highly limited by motion artifact, yet without a mu acute intracranial abnormality identified. Dictated by: Jamil Patel M.D. on 05/13/2025 at 15:40 Approved by: Jamil Patel M.D. on 05/13/2025 at 15:41
[2025-05-13] MEDS: SODIUM CHLORIDE 0.9% 1,000 ML 1000 ML IV (17:09)
[2025-05-13] MEDS: cefTRIAXone 2,000 MG in SODIUM CHLORIDE 0.9% 100 ML 200 MG IV (17:09)
[2025-05-13] MEDS: MORPHINE 4 MG/ML INJ IV (17:09)
--- NOTE | 2025-05-13 18:27 | P.HP_ITS ---
History of Present Illness History of Present Illness Date Patient Seen: 05/13/25 Chief complaint: Shaky, Chills Narrative: Chief complaint: Confusing rigors chills in setting of UTI with sepsis History of present illness: 05/13: 89-year-old female with advanced dementia nonverbal except word salad brought in by ambulance by [facility] with tremors shakes chills Hemogram and metabolic unremarkable new line urinalysis shows pyuria bacteria Review of systems: Patient incapable due to loss of cognition Physical exam: Elderly female tremors shaking hand uulating in the room HEENT dry oropharynx Heart sounds distant Lung sounds distant Abdomen nontender Extremities no edema Moves all extremities Does not follow commands or understand spoken language For objective laboratory and imaging please see bottom of the note: Assessment and plan: Sepsis secondary to UTI with encephalopathy rigors and tremors in a patient with advanced stage 6 dementia * Comfort measures with IV Toradol and Dilaudid for symptoms * Culture urine and blood * Empiric Rocephin DVT prophylaxis: * Subcutaneous heparin Code status: * Do not resuscitate 55 minutes were involved in the management of this patient including direct patient contact communication with patient's caregiver review of objective laboratory and imaging findings and discussion with ER physician [facility] Medical History Insomnia Age-related osteoporosis without current pathological fracture Do not resuscitate Fractures (~1997) Measles Chicken pox Hearing loss (~1949) History of urinary incontinence (~2007) Fecal incontinence (~2020) Skin cancer (~2011) Depression, recurrent Essential hypertension Alzheimer's dementia (~2014) Pessary maintenance Presence of pessary Healthy adult Surgical History No pertinent past surgical history Family History Father Pneumonia Brother Cancer Grandfather History of heart disease Social History household members: none Smoking Status: Never smoker alcohol intake: current Meds Home Medications and Allergies Home Medications ?Medication ?Instructions ?Recorded ?Confirmed ?Type multivitamin 1 tab PO QNOON 07/29/18 08/0 04/07 History Disabled Parking Permit 1 ea Not Applicable DAILY #1 ea 11/17/22 05/20/24 Rx trazodone 50 mg tablet 25 mg (1/2 x 50 mg) PO BEDTI ME PRN 12/08/22 05/20/24 Rx sleep #60 tabs docusate sodium 100 mg capsule 100 mg PO DAILY 4 05/20/24 History paroxetine HCl 10 mg tablet 10 mg PO DAILY 05/20/24 History docusate sodium 100 mg capsule 100 mg PO BID PRN Const ipation #60 05/28/24 Rx caps hydrocodone 5 mg-acetaminophen 325 1 tab PO Q4H PRN Pa in, Moderate 7 05/28/24 Rx mg tablet days #20 tabs lorazepam 0.5 mg tablet 0.5 mg PO BEDTIME #30 tabs 0 05/28/24 Rx lorazepam 0.5 mg tablet 0.5 mg PO Q4H PRN Anxiety #3 0 tabs 05/28/24 05/20/24 Rx polyethylene glycol 3350 17 gram 17 g PO DAILY PRN Con stipation #30 05/28/24 Rx oral powder packet ea Allergies Allergy/AdvReac Type Severity Reaction Status Date / Time citalopram AdvReac Severe Agitated Verified 07/05/24 15:32 haloperidol AdvReac Intermediate agitation Verified 12/07/23 15:03 quetiapine AdvReac Intermediate confusion, Verified 12/07/23 15:03 agitation capsules AdvReac Intermediate unable to Uncoded 04/25/24 02:42 take capsules Exam Vital Signs (past 8 hours): - 05/13/25 11:16 05/13/25 11:19 05/13/25 11:30 Temperature 99.8 F H Pulse Rate 96 H 95 H 94 H Respiratory Rate 18 Blood Pressure Pulse Oximetry 98 94 97 Oxygen Delivery Method Room Air 05/13/25 11:30 05/13/25 11:45 05/13/25 11:45 Temperature Pulse Rate 86 Respiratory Rate Blood Pressure 132/76 132/83 Pulse Oximetry 96 Oxygen Delivery Method 05/13/25 12:00 05/13/25 12:01 05/13/25 12:01 Temperature Pulse Rate 87 84 Respiratory Rate Blood Pressure 173/81 H Pulse Oximetry 95 96 Oxygen Delivery Method 05/13/25 12:16 05/13/25 12:16 05/13/25 12:30 Temperature Pulse Rate 84 84 Respiratory Rate Blood Pressure 172/113 H Pulse Oximetry 97 95 Oxygen Delivery Method 05/13/25 12:31 05/13/25 12:31 05/13/25 12:45 Temperature Pulse Rate 87 Respiratory Rate Blood Pressure 149/67 H 143/85 H Pulse Oximetry 95 Oxygen Delivery Method 05/13/25 12:45 05/13/25 13:00 05/13/25 13:00 Temperature Pulse Rate 81 84 Respiratory Rate Blood Pressure 142/76 H Pulse Oximetry 94 95 Oxygen Delivery Method 05/13/25 13:15 05/13/25 13:15 05/13/25 13:28 Temperature Pulse Rate 77 Respiratory Rate Blood Pressure 151/83 H 135/87 Pulse Oximetry 98 Oxygen Delivery Method 05/13/25 13:28 05/13/25 13:30 05/13/25 13:31 Temperature Pulse Rate 84 86 Respiratory Rate Blood Pressure 146/108 H Pulse Oximetry 97 98 Oxygen Delivery Method 05/13/25 13:31 05/13/25 14:00 Temperature Pulse Rate 86 80 Respiratory Rate Blood Pressure Pulse Oximetry 98 96 Oxygen Delivery Method Oxygen Delivery Method Room Air Objective Labs 05/13/25 12:05 05/13/25 12:05 Labs: Laboratory Results - last 24 hr 05/13/25 05/13/25 05/13/25 11:14 12:05 12:12 WBC 7.5 RBC 3.90 L Hgb 11.8 L Hct 35.1 L MCV 90.1 MCH 30.3 MCHC 33.6 RDW 13.0 Plt Count 335 Neut % (Auto) 69.5 Lymph % (Auto) 16.9 L [place] % (Auto) 11.4 Eos % (Auto) 1.7 L Baso % (Auto) 0.5 Neut # (Auto) 5200 Lymph # (Auto) 1300 [place] # (Auto) 900 Eos # (Auto) 100 Baso # (Auto) 0 PT 12.3 INR 1.1 APTT 26 Sodium 140 Potassium 4.9 Chloride 103 Carbon Dioxide 28 BUN 16 Creatinine 0.60 Estimated GFR > 60 BUN/Creatinine Ratio 26.7 H Glucose 99 Calcium 9.4 Total Bilirubin 0.5 AST 25 ALT 16 Alkaline Phosphatase 82 Total Protein 7.2 Albumin 4.0 Globulin 3.2 Albumin/Globulin Ratio 1.3 Urine Color Yellow Urine Appearance Clear Urine pH 7.0 Ur Specific [place] <=1.005 Urine Protein Negative Urine Glucose (UA) Negative Urine Ketones Negative Urine Occult Blood Negative Urine Nitrate Negative Urine Bilirubin Negative Urine Urobilinogen 1.0 Ur Leukocyte Esterase 3+ H Urine RBC None seen Urine WBC 5-10/hpf H Ur Squamous Epith Cells None seen Urine Bacteria Many (>30) H Ur Culture Indicated? Specimen cultured Vol Urine Centrifuged 10ml (spun) Chlamy pneumoniae PCR Not detected Adenovirus (PCR) Not detected B. pertussis DNA (PCR) Not detected B.parapertussis DNA PCR Not detected Coronavirus OC43 (PCR) Not detected Coronavirus HKU1 (PCR) Not detected Coronavirus 229E (PCR) Not detected SARS-CoV-2 (PCR) Not detected Coronavirus NL63 (PCR) Not detected Human Metapneumovir PCR Not detected Influenza Type A (PCR) Not detected Influenza Type B (PCR) Not detected M. pneumoniae (PCR) Not detected Parainfluenza 1 (PCR) Not detected Parainfluenza 2 (PCR) Not detected Parainfluenza 3 (PCR) Not detected Parainfluenza 4 (PCR) Not detected RSV (PCR) Not detected Entero/Rhino (PCR) Not detected Assessment & Plan Time-Based Coding :: [TOTAL MINUTES] spent with patient and on the chart (including review of chart, obtaining history, exam, reviewing outside data, placing orders, documenting exam and treatment plan, and counseling patient) on [DATE].
[2025-05-13] MEDS: KETOROLAC 30 MG/ML VIAL 15 MG IV (19:28)
[2025-05-13] MEDS: LACTATED RINGERS 1,000 ML 100 ML IV (19:29)
[2025-05-13] MEDS: HEPARIN 5,000 UNIT/ML VIAL 5000 UNIT SUBCUT (23:04)
[2025-05-14] MEDS: LACTATED RINGERS 1,000 ML 100 ML IV ×2 (05:47→15:47)
[2025-05-14 06:29] LABS: Add Manual Diff / Slide Review NO; Hematocrit 34.2 % (36-46); Hemoglobin 11.2 g/dL (12.0-16.0); Lymphocytes Absolute Auto 1800 /uL (1100-4500); Mean Corpuscular HGB Conc 32.8 % (30-36); Mean Corpuscular Hemoglobin 29.6 PG (26-34); Mean Corpuscular Volume 90.3 fL (80-100); Platelet Count 321 X10^3/uL (150-400)
[2025-05-14 06:41] LABS: Blood Urea Nitrogen 15 mg/dL (7-17); Calcium 8.5 mg/dL (8.4-10.2); Carbon Dioxide 27 mmol/L (22-32); Chloride 104 mmol/L (98-107); Estimated Glomerular Filt Rate > 60 mL/min (>60); Glucose 83 mg/dL (70-99); HEMOLYSIS < 15 (0-50); Potassium 4.0 mmol/L (3.4-5.1); Sodium 137 mmol/L (137-145)
[2025-05-14 09:23] VITALS: PULSE 71; O2SAT 93
--- NOTE | 2025-05-14 11:03 | PC.NURSE ---
Addendum entered by Kathryn العراقي R.N. 05/14/25 14:47: Patient repositioned after being incontinent of a large amount of urine. She will pinch, bite, and kick if her hands are not held when changing her. It took 3 staff to change her, put cream on her taj area and bottom. Her bottom looked clear and free from redness. Taj area is red. Son in law back and visiting. Original Note: Patient is resting supine, we will be changing her brief here shortly. Letting her sleep as she was agitated and anxious last night. Son in law in room visiting and hoping to talk to the Doctor soon.
[2025-05-14 12:00] VITALS: BP 114/60; PULSE 92; RESP 20; TEMP 36.1; O2SAT 97
[2025-05-14] MEDS: HEPARIN 5,000 UNIT/ML VIAL 5000 UNIT SUBCUT ×2 (12:11→22:57)
[2025-05-14] MEDS: fentaNYL 12 MCG/PATCH TOP (12:15)
--- NOTE | 2025-05-14 13:16 | CM.DANOTE ---
Initial DCP Assessment Note Pt is a 89 yo male, resident at [facility] in [place], admitted for management of sepsis sec to UTI. PCP: Shahida Monroe Payer: KIM KURTZ Reviewed chart, pt discussed in multidisciplinary rounds this morning. Patient has late stage dementia, is non-verbal, and may be a good candidate for comfort care according to Dr Mina. Met w/patient's son in law at bedside who confirms his Michelle is patient's DPOA, they live in [place]. Family anticipates patient will return to [facility], where patient is assisted with all ADLs. Family denying needs currently. Social work team will plan to follow clinical course closely. Anticipate coordination needed to get patient back to [facility], possibly with [facility] if provider recommends and family agreeable. KORY Caballero Discharge Planning/Care Management CM Discharge Assessment Start: 05/13/25 20:20 Freq: Status: Active Protocol: Document 05/14/25 13:07 VICKI (Rec: 05/14/25 13:15 VICKI [id number]) Discharge Planning Assessment Assigned Discharge KORY Roque Sash Clamp Operator DPOA/Assigned Michelle Ariza, Designee Name Advance Directives? Yes Advance Directives Yes on File History Provided By Family Member,Medical Record Prior Living Assisted Living Arrangements Comment [facility] Household Members none Type of Relies on Others transporation used prior to admit Facility Name [facility] Admitted From: Independent with ADL No 's Is patient alert and No oriented? Needs Assistance Bathing,Eating,Grooming,Meal Prep,Toileting,Managing With Medications,Home Chores / Shopping Comment Needs assist with all ADLs Comment Return to [facility] care Discharge Plan Assisted Living Facility Transportation Facility Arrangement Referrals Initiated None needed
--- NOTE | 2025-05-14 17:46 | P.PN_ITS ---
Subjective Subjective Date Patient Seen: 05/14/25 Interval history: Chief complaint: Confusing rigors chills in setting of UTI with sepsis History of present illness: 05/13: 89-year-old female with advanced dementia nonverbal except word salad brought in by ambulance by [facility] with tremors shakes chills Hemogram and metabolic unremarkable urinalysis shows pyuria bacteria Hospital course: 05/14: No changes overnight patient is continually sliding grimacing chewing on her blanket and refractory to any type of attention combative had a long discussion with daughter and son-in-law reviewing all of the imaging laboratory values and elected on treating with Duragesic patch for what may be continuous pain as well as continuing the as needed IV Dilaudid Review of systems: Patient incapable due to loss of cognition Physical exam: Elderly female tremors shaking hand uulating in the room HEENT dry oropharynx Heart sounds distant Lung sounds distant Abdomen nontender Extremities no edema Moves all extremities Does not follow commands or understand spoken language For objective laboratory and imaging please see bottom of the note: Assessment and plan: Sepsis secondary to UTI with encephalopathy rigors and tremors in a patient with advanced stage 6 dementia * Comfort measures with IV Toradol and Dilaudid for symptoms * Culture urine and blood * Empiric Rocephin * Duragesic patch for pain Adverse reaction to Seroquel DVT prophylaxis: Subcutaneous heparin Code status: Do not resuscitate 35 minutes were involved in the management of this patient including direct patient contact communication with patient's caregiver review of objective laboratory and imaging findings Exam Vital Signs (past 8 hours): - 05/14/25 12:00 Temperature 96.9 F L Pulse Rate 92 H Respiratory Rate 20 Blood Pressure 114/60 Pulse Oximetry 97 Oxygen Flow Rate 0 Oxygen Delivery Method Room Air Oxygen Flow Rate 0 Objective Labs 05/14/25 06:21 05/14/25 06:21 Labs: Laboratory Results - last 24 hr 05/14/25 06:21 WBC 5.6 RBC 3.79 L Hgb 11.2 L Hct 34.2 L MCV 90.3 MCH 29.6 MCHC 32.8 RDW 12.7 Plt Count 321 Neut % (Auto) 47.0 L D Lymph % (Auto) 32.7 [place] % (Auto) 11.5 Eos % (Auto) 7.5 H Baso % (Auto) 1.3 Neut # (Auto) 2700 Lymph # (Auto) 1800 [place] # (Auto) 600 Eos # (Auto) 400 Baso # (Auto) 100 Sodium 137 Potassium 4.0 Chloride 104 Carbon Dioxide 27 BUN 15 Creatinine 0.51 L Estimated GFR > 60 BUN/Creatinine Ratio 29.4 H Glucose 83 Calcium 8.5 PFSH Medical History Insomnia Age-related osteoporosis without current pathological fracture Do not resuscitate Fractures (~1997) Measles Chicken pox Hearing loss (~1949) History of urinary incontinence (~2007) Fecal incontinence (~2020) Skin cancer (~2011) Depression, recurrent Essential hypertension Alzheimer's dementia (~2014) Pessary maintenance Presence of pessary Healthy adult Surgical History No pertinent past surgical history Family History Father Pneumonia Brother Cancer Grandfather History of heart disease Social History household members: none Smoking Status: Never smoker alcohol intake: former Assessment & Plan Time-Based Coding :: [TOTAL MINUTES] spent with patient and on the chart (including review of chart, obtaining history, exam, reviewing outside data, placing orders, documenting exam and treatment plan, and counseling patient) on [DATE].
[2025-05-14 19:00] VITALS: BP 166/103; PULSE 74; RESP 15; TEMP 36.6; O2SAT 98
[2025-05-15] MEDS: LACTATED RINGERS 1,000 ML 100 ML IV ×3 (04:37→23:01)
[2025-05-15 06:12] LABS: Add Manual Diff / Slide Review NO; Hematocrit 36.0 % (36-46); Hemoglobin 11.9 g/dL (12.0-16.0); Lymphocytes Absolute Auto 1700 /uL (1100-4500); Mean Corpuscular HGB Conc 33.0 % (30-36); Mean Corpuscular Hemoglobin 29.5 PG (26-34); Mean Corpuscular Volume 89.3 fL (80-100); Platelet Count 358 X10^3/uL (150-400)
[2025-05-15 06:22] LABS: Blood Urea Nitrogen 8 mg/dL (7-17); Calcium 8.8 mg/dL (8.4-10.2); Carbon Dioxide 30 mmol/L (22-32); Chloride 101 mmol/L (98-107); Estimated Glomerular Filt Rate > 60 mL/min (>60); Glucose 76 mg/dL (70-99); HEMOLYSIS < 15 (0-50); Potassium 3.9 mmol/L (3.4-5.1); Sodium 138 mmol/L (137-145)
[2025-05-15 08:00] VITALS: BP 171/71; PULSE 71; RESP 20; TEMP 36.6; O2SAT 98
--- NOTE | 2025-05-15 08:58 | PC.NURSE ---
Patient is awake this morning. She does not seem to be in any discomfort at this time. She took bites of breakfast this morning, but does bite on the spoon. Patient is using the purewick to void and it has been working well for her. Patient will dementia, she is alert but oriented x0/1. She may recognize her daughter and some staff members faces. She has a red taj area. Cream being applied to area and labia is looking less red. Overall, patient does not like to be changed or repositioned.
--- NOTE | 2025-05-15 10:51 | DIET.CONS ---
Dietary Consultation Note Admission Date: 05/13/2025 17:31 Assessment: 89 y F admitted for Sepsis secondary to UTI. Dietitian screened for MNA score. Pt with advanced dementia. EMR reviewed. Pt may d/c on comfort care depending on hospital course. Providing easy to eat foods, unit host coordinating best tolerated options. Ht: 162.56 cm Wt: 53 kg BMI: 20.0 (underweight for age) UBW: 50 kg on 09/10/24, 59 kg on 05/21/24 (-10% weight loss in 1 yr, non-severe) Last BM: 05/13/25 (05/13/25 20:31) MNA: 7 Nick Score: 16 Diet: 05/14/25 Lunch Dysphagia Diet Diet Modifications: Food Texture: Level 4 - Pureed Liquid Consistency: Level 0 - Thin Nutrition Percent Meal Consumed 50% 05/14/25 18:50 Labs: RBC 4.03 X10^6/uL (4.0-5.2) 05/15/25 05:15 Hgb 11.9 g/dL (12.0-16.0) L 05/15/25 05:15 Hct 36.0 % (36-46) 05/15/25 05:15 Creatinine 0.50 mg/dL (0.52-1.04) L 05/15/25 05:15 Nutrition Diagnosis: Inadequate oral intakes r/t decreased ability to consume sufficient intake aeb advanced dementia, 50% recorded PO intakes, BMI undweight for age Interventions: -ONS BID EER: 1600 kcals (30 kcals/kg per BMI) 55 g protein (1g/kg per age) Monitoring/Evaluations: PO intakes, best tolerated foods Electronically Signed by: Jessi Gross 05/15/25 10:51 Clinical Dietitian [address] [address]
[2025-05-15] MEDS: HEPARIN 5,000 UNIT/ML VIAL 5000 UNIT SUBCUT ×2 (12:50→21:56)
--- NOTE | 2025-05-15 13:35 | PM.PN.IH.1 ---
Subjective Subjective Date Patient Seen: 05/15/25 Time Patient Seen: 10:40 Interval history: Chief complaint: Confusing rigors chills in setting of UTI with sepsis History of present illness: 05/13: 89-year-old female with advanced dementia nonverbal except word salad brought in by ambulance by [facility] with tremors shakes chills Hemogram and metabolic unremarkable urinalysis shows pyuria bacteria Hospital course: 05/14: No changes overnight patient is continually sliding grimacing chewing on her blanket and refractory to any type of attention combative had a long discussion with daughter and son-in-law reviewing all of the imaging laboratory values and elected on treating with Duragesic patch for what may be continuous pain as well as continuing the as needed IV Dilaudid 05/15: The patient is calmer this morning. She is alert and answer simple questions. She is seen with friend/caregiver at bedside. Her case is reviewed with her primary care provider JAYCE Gonzalez by phone. Care was reviewed with her daughter by phone in detail. Hospice was discussed as an option but her daughter refuses this approach at this point. Physical therapy evaluation pending. Exam Vital Signs (past 8 hours): - 05/15/25 08:00 Temperature 97.9 F Pulse Rate 71 Respiratory Rate 20 Blood Pressure 171/71 H Pulse Oximetry 98 Oxygen Flow Rate 0 Oxygen Delivery Method Room Air Oxygen Flow Rate 0 Narrative Exam Narrative: Elderly female tremors shaking hand uulating in the room HEENT moist oropharynx Heart regular Lung clear Abdomen nontender Extremities no edema Neuro: Nonfocal, moves all 4 extremities, answers simple questions Objective Imaging *: Radiologist's impression: 1. Head CT 05/13/2025: Study highly limited by motion artifact, yet without a mu acute intracranial abnormality identified. 2. Chest/abdomen/pelvis CT 05/13/2025: 1. Small bilateral pleural effusion with adjacent bibasilar infiltrate/atelectasis. No pneumothorax. Moderate centrilobular emphysema. 2. No abnormally enlarged lymph nodes are seen in chest, abdomen or pelvis. 3. Cardiomegaly, no pericardial effusion. Prominent size of main pulmonary artery which can be seen associated with pulmonary vascular hypertension. No thoracic aortic aneurysm. 4. Numerous well-circumscribed hypodensities scattered in liver parenchyma likely represent hepatic cysts. 5. No bowel obstruction or abnormal bowel wall thickening. Colonic diverticulosis without CT evidence of acute diverticulitis. Moderate constipation. No abscess collection. No free fluid or free air. 6. Other chronic findings as above. Labs 05/15/25 05:15 05/15/25 05:15 Labs: Laboratory Results - last 24 hr 05/15/25 05:15 WBC 5.4 RBC 4.03 Hgb 11.9 L Hct 36.0 MCV 89.3 MCH 29.5 MCHC 33.0 RDW 12.7 Plt Count 358 Neut % (Auto) 48.1 L Lymph % (Auto) 32.1 [place] % (Auto) 10.7 Eos % (Auto) 8.0 H Baso % (Auto) 1.1 Neut # (Auto) 2600 Lymph # (Auto) 1700 [place] # (Auto) 600 Eos # (Auto) 400 Baso # (Auto) 100 Sodium 138 Potassium 3.9 Chloride 101 Carbon Dioxide 30 BUN 8 Creatinine 0.50 L Estimated GFR > 60 BUN/Creatinine Ratio 16.0 Glucose 76 Calcium 8.8 PFSH Medical History Insomnia Age-related osteoporosis without current pathological fracture Do not resuscitate Fractures (~1997) Measles Chicken pox Hearing loss (~1949) History of urinary incontinence (~2007) Fecal incontinence (~2020) Skin cancer (~2011) Depression, recurrent Essential hypertension Alzheimer's dementia (~2014) Pessary maintenance Presence of pessary Healthy adult Surgical History No pertinent past surgical history Family History Father Pneumonia Brother Cancer Grandfather History of heart disease Social History household members: none Smoking Status: Never smoker alcohol intake: former Assessment & Plan Assessment & Plan narrative: 1. Sepsis secondary to UTI with encephalopathy rigors and tremors in a patient with advanced stage 6 dementia E coli sensitive to ceftriaxone, completed IV ceftriaxone x3 days on 05/15 PT/OT consult 2. Hypertension, present on admission and active. 3. Dementia with nocturnal agitation, as well as agitation with certain events such as showering, present on admission and active. Note history of adverse reaction to Seroquel DVT prophylaxis: Subcutaneous heparin Code status: Do not resuscitate Team rounds conducted. Plan is for returned to the [facility] memory Care unit when able to ambulate and able to accommodate her needs. PROFEE Mill Stenciler Document charge(s): No Charge Codes Subsequent inpatient/observation care: 61179
--- NOTE | 2025-05-15 15:00 | PT.IIE ---
Current Diagnoses Sepsis, unspecified organism (05/13/25) Surgical History (Last Reviewed 05/25/24 @ 09:44 by Rafael Flanagan MD) No pertinent past surgical history Medical History (Last Reviewed 07/05/24 @ 15:53 by Edis Portillo DO) Age-related osteoporosis without current pathological fracture Alzheimer's dementia (~2014) Chicken pox Depression, recurrent Do not resuscitate Essential hypertension Fecal incontinence (~2020) Fractures (~1997) Healthy adult Hearing loss (~1949) History of urinary incontinence (~2007) Insomnia Measles Pessary maintenance Presence of pessary Skin cancer (~2011) Physical Therapy Inpatient Evaluation/Re-Eval M1 PT/OT-IP Prior Functional Status Start: 05/15/25 16:49 Freq: NEEDED Status: Active Protocol: Document 05/15/25 15:00 AB (Rec: 05/15/25 17:33 AB [id number]) Medical Review Prior Functional Status Medical History Yes Reviewed Communication pt with dx dementia and unable to communicate and with difficulty following directions Mobility and Gait Pt lives at [facility] and able to ambulate without AD but tends to reach for the wall or furniture cruise per CLAUDIA Social History Household Members none Living Arrangements Other Number of Floors ( One Floor Floors) Number of Stairs To pt lives at [facility] Enter/Railing? M2 PT-IP Current Condition Start: 05/15/25 16:49 Freq: NEEDED Status: Active Protocol: Document 05/15/25 15:00 AB (Rec: 05/15/25 17:33 AB [id number]) Physical Therapy Current Condition Current Condition Evaluation Date 05/15/25 Treatment Diagnosis UTI; sepsis; difficulty in walking Onset Date 05/13/25 M3 PT-IP Subjective Start: 05/15/25 16:49 Freq: NEEDED Status: Active Protocol: Document 05/15/25 15:00 AB (Rec: 05/15/25 17:34 AB [id number]) Subjective Physical Therapy Visit Type Type Initial Evaluation Visit Start Time 15:00 Visit Stop Time 15:30 Number of CERTIFIED DRUG COUNSELOR Visits 0 M4 PT-IP Mobility and Gait Start: 05/15/25 16:49 Freq: NEEDED Status: Active Protocol: Document 05/15/25 15:00 AB (Rec: 05/15/25 17:33 AB [id number]) PT-Bed Mobility Assessment Supine to Sit Supine to Sit Maximum Assistance,2 Person Assistance PT-Transfer Assessment Sit to and From Stand Sit to and from Maximum Assistance,1 Person Assistance,2 Person Stand Assistance,Use of Upper Extremities Equipment Transfer Assistive None,Gait Belt Device Orthotic/Prosthetic No Devices or Brace: Transfers Transfer Destination Chair Transfer Ability Level of Assist Maximum Assistance,2 Person Assistance,Use of Upper Extremities Comments Mobility Comments pt in bed. CLAUDIA in room. pt unable to follow directions and unable to be re-directed to task. pt is agitated and tends to pull on objects close to her. max A x 2 for supine to sit with 2 attempts to complete. max A for sit to stand. pt is very impulsive. ambulated to the chair mod A x 2 to max A x 2 without AD for safety due to pt's agitation and unable to follow directions. positioned pt on the chair. call light and table place next to pt. Left pt with CLAUDIA. informed wrapper caser regarding pt's mobility level. Gait Assessment Gait Gait Assistance Moderate Assistance,Maximum Assistance,2 Person Assist Required: Distance (Feet) 12 Able to Maintain Yes Weight Bearing Status During Gait Assistive Devices Assistive Device None,Gait Belt Orthotic/Prosthetic No Devices or Brace: Gait Deviations General Gait Pattern Ataxic,Decreased Stride Length,Decreased Feet Clearance Factors Limiting Gait Function Factors Limiting Decreased Activity Tolerance,Decreased Strength, Gait Function Difficulty Following Directions,Incoordination,Limited Range of Motion,Pain,Poor Balance,Poor Safety Awareness PT-Balance Assessment Sitting Balance and Reactions Static Sitting Fair Balance Ability Dynamic Sitting Fair Balance Ability Standing Balance and Reactions Static Standing Poor Balance Ability Dynamic Standing Poor Balance Ability Device Used without AD M5 PT-IP Objective Assessments Start: 05/15/25 16:49 Freq: NEEDED Status: Active Protocol: Document 05/15/25 15:00 AB (Rec: 05/15/25 17:33 AB [id number]) Orientation Orientation/Cognition Level of Alertness Confusional State Orientation Name Safety Awareness Decreased Safety Awareness Memory Description Short Term Impaired,Cloth Examiner Hand Impaired Gross Range of Motion Lower Extremity ROM Impairments unable to assess due to pt's agitation and increases when moved Strength Comments Strength Comments increase R hip adduction noted in supine M7 PT-IP Assessment and Plan Start: 05/15/25 16:49 Freq: NEEDED Status: Active Protocol: Document 05/15/25 15:00 AB (Rec: 05/15/25 17:33 AB [id number]) PT Summary Assessment and Plan Potential Rehabilitation Fair Potential Status of Condition Evolving at Evaluation Summary Impairments Pain,ROM,Strength,Balance,Coordination,Sensation,Tone, Cognition,Bed Mobility,Transfers,Gait,Activity Tolerance Assessment Summary pt is an 89 y/o F who is admitted for sepsis/UTI. pt has dx of dementia and unable to follow directions. pt is agitated and can be combative and unable to redirect to pt to task. PT eval was ordered to assess pt's mobility level/needs for d/c plan. pt requiring max A x 2 for bed mobility and mod A x 2 to max A x 2 for ambulation without AD. pt will need 24/7 assist. pt lives at [facility]. pt plans to go back to memory care facility. No further PT intervention indicated. Frequency of Treatment Frequency Of Discharge Treatment Recommendations To Nursing Amount of Assist 2 Person Assist Needed Discharge Recommendations PT Discharge Home with 24/7 Assist Available Recommendations Transportation Needs Stretcher/Ambulance at Discharge - PT assist 2
[2025-05-15] MEDS: HYDROCODONE/ACET 5/325 TABLET 1 TAB PO ×2 (15:32→21:56)
[2025-05-15 20:00] VITALS: BP 153/88; PULSE 93; RESP 17; TEMP 36.6; O2SAT 92
[2025-05-16 07:58] LABS: Add Manual Diff / Slide Review NO; Hematocrit 36.3 % (36-46); Hemoglobin 12.2 g/dL (12.0-16.0); Lymphocytes Absolute Auto 800 /uL (1100-4500); Mean Corpuscular HGB Conc 33.7 % (30-36); Mean Corpuscular Hemoglobin 29.7 PG (26-34); Mean Corpuscular Volume 88.1 fL (80-100); Platelet Count 372 X10^3/uL (150-400)
[2025-05-16 08:08] LABS: Blood Urea Nitrogen 8 mg/dL (7-17); Calcium 8.2 mg/dL (8.4-10.2); Carbon Dioxide 25 mmol/L (22-32); Chloride 99 mmol/L (98-107); Estimated Glomerular Filt Rate > 60 mL/min (>60); Glucose 110 mg/dL (70-99); HEMOLYSIS < 15 (0-50); Potassium 3.8 mmol/L (3.4-5.1); Sodium 134 mmol/L (137-145)
[2025-05-16] MEDS: HEPARIN 5,000 UNIT/ML VIAL 5000 UNIT SUBCUT (08:59)
[2025-05-16] MEDS: LACTATED RINGERS 1,000 ML 100 ML IV ×2 (08:59→19:48)
[2025-05-16] MEDS: HYDROCODONE/ACET 5/325 TABLET 1 TAB PO ×2 (11:31→17:47)
--- NOTE | 2025-05-16 12:48 | P.PN_ITS ---
Subjective Subjective Date Patient Seen: 05/16/25 Time Patient Seen: 08:14 Interval history: Chief complaint: Confusing rigors chills in setting of UTI with sepsis History of present illness: 05/13: 89-year-old female with advanced dementia nonverbal except word salad brought in by ambulance by [facility] with tremors shakes chills Hemogram and metabolic unremarkable urinalysis shows pyuria bacteria Hospital course: 05/14: No changes overnight patient is continually sliding grimacing chewing on her blanket and refractory to any type of attention combative had a long discussion with daughter and son-in-law reviewing all of the imaging laboratory values and elected on treating with Duragesic patch for what may be continuous pain as well as continuing the as needed IV Dilaudid 05/15: The patient is calmer this morning. She is alert and answer simple questions. She is seen with friend/caregiver at bedside. Her case is reviewed with her primary care provider JAYCE Gonzalez by phone. Care was reviewed with her daughter by phone in detail. Hospice was discussed as an option but her daughter refuses this approach at this point. Physical therapy evaluation pending. 05/16: The patient appears comfortable. No complaints. Awaiting placement. Exam Vital Signs (past 8 hours): Oxygen Delivery Method Room Air Oxygen Flow Rate 0 Narrative Exam Narrative: Elderly female appears comfortable, chewing on bed sheets HEENT moist oropharynx Heart regular Lung clear Abdomen nontender Extremities no edema Neuro: Nonfocal, moves all 4 extremities Objective Imaging *: Radiologist's impression: 1. Head CT 05/13/2025: Study highly limited by motion artifact, yet without a mu acute intracranial abnormality identified. 2. Chest/abdomen/pelvis CT 05/13/2025: 1. Small bilateral pleural effusion with adjacent bibasilar infiltrate/atelectasis. No pneumothorax. Moderate centrilobular emphysema. 2. No abnormally enlarged lymph nodes are seen in chest, abdomen or pelvis. 3. Cardiomegaly, no pericardial effusion. Prominent size of main pulmonary artery which can be seen associated with pulmonary vascular hypertension. No thoracic aortic aneurysm. 4. Numerous well-circumscribed hypodensities scattered in liver parenchyma likely represent hepatic cysts. 5. No bowel obstruction or abnormal bowel wall thickening. Colonic diverticulosis without CT evidence of acute diverticulitis. Moderate constipation. No abscess collection. No free fluid or free air. 6. Other chronic findings as above. Labs 05/16/25 07:45 05/16/25 07:45 Labs: Laboratory Results - last 24 hr 05/16/25 07:45 WBC 11.4 H D RBC 4.12 Hgb 12.2 Hct 36.3 MCV 88.1 MCH 29.7 MCHC 33.7 RDW 12.6 Plt Count 372 Neut % (Auto) 84.3 H D Lymph % (Auto) 7.3 L D [place] % (Auto) 6.8 Eos % (Auto) 0.8 L Baso % (Auto) 0.8 Neut # (Auto) 9600 H Lymph # (Auto) 800 L [place] # (Auto) 800 Eos # (Auto) 100 Baso # (Auto) 100 Sodium 134 L Potassium 3.8 Chloride 99 Carbon Dioxide 25 BUN 8 Creatinine 0.43 L Estimated GFR > 60 BUN/Creatinine Ratio 18.6 Glucose 110 H Calcium 8.2 L PFSH Medical History Age-related osteoporosis without current pathological fracture Alzheimer's dementia (~2014) Chicken pox Depression, recurrent Do not resuscitate Essential hypertension Fecal incontinence (~2020) Fractures (~1997) Healthy adult Hearing loss (~1949) History of urinary incontinence (~2007) Insomnia Measles Pessary maintenance Presence of pessary Skin cancer (~2011) Surgical History No pertinent past surgical history Family History Father Pneumonia Brother Cancer Grandfather History of heart disease Social History household members: none Smoking Status: Never smoker alcohol intake: former Assessment & Plan Assessment & Plan narrative: 1. Sepsis secondary to UTI with encephalopathy rigors and tremors in a patient with advanced stage 6 dementia * E coli sensitive to ceftriaxone, completed IV ceftriaxone x3 days on 05/15 * Patient not participatory with PT. 2. Hypertension, present on admission and active. 3. Dementia with nocturnal agitation, as well as agitation with certain events such as showering, present on admission and active. Note history of adverse reaction to Seroquel * Significant decline in quality of life. * Family wishes transfer back to memory care facility, declines hospice. DVT prophylaxis: Subcutaneous heparin Code status: Do not resuscitate Team rounds conducted. Plan is for returned to the [facility] unit when able to accommodate her needs. PROFEE Buttermaker Continuous Churn Document charge(s): No Charge Codes Subsequent inpatient/observation care: [id number]
--- NOTE | 2025-05-16 15:57 | CM.DPNOTE ---
DCP Cont According to conversation with Coni Long, advanced nursing professor P [phone] yesterday; patient is far below her baseline of walking around their facility. Coni and provider Shahida Monroe would like Hospice services to help care for patient once she returns. According to Dr Flanagan Daughter and DPOA Michelle Ariza(POA) declines hospice at this time. Coni Long unsure they can safely meet patient's needs without extra layer of support from [facility]. PT assessed to help with dispo planning (and per Coni at 's request) and patient was immediately discharged from PT's service. Due to the severity of patient's dementia, patient does not like to be moved, and is resistant to most cares. Had lengthy conversation today with daughter via facetime call and son in law in the room. Daughter reviews at length her concerns about hospice services and reports she does think hospice is helpful. Daughter's experience with hospice with her father was not good and she felt the service hastened his . Family argues that patient has quality of life overall. Re patient's constant expression of pain, biting sheets and crying- family feel patient's pain may be originating from her mouth and need of extensive dental work however this is difficult as patient does not allow people to touch her readily, and bites. Dr Flanagan in the room for update that family would like patient back to and still are declining hospice. Now awaiting input from administrators. Patient is medically ready for discharge. SW team following closely for coordination. VICKI
[2025-05-16 18:30] VITALS: BP 160/83; PULSE 111; TEMP 36; O2SAT 92
[2025-05-16 20:00] VITALS: BP 110/86; PULSE 60; RESP 19; TEMP 36.4; O2SAT 96
--- NOTE | 2025-05-17 07:23 | PC.NURSE ---
mold shifter GAMBLING SUPERVISOR informed RN that during a brief change GAMBLING SUPERVISOR noticed fecal matter under nails and on lips of patient. Uncertain on quantity of fecal matter consumed. die setter aware. Day shift RN given report on situation.
--- NOTE | 2025-05-17 11:32 | PC.NURSE ---
Addendum entered by Kathryn العراقي R.N. 05/17/25 14:08: Patient noted with a [id number] skin tear to the left inside of her gluteal fold, looks like a shearing force from the bed pad. Patient would not allow us to snap a photo of her bottom. She has severe dementia, and it takes 3 staff members to get her changed. Cream applied to area. Otherwise patients bottom looks unremarkable. Sarahy area is also not red anymore, cream has been applied to area's and has helped patient. Given one vicodin earlier and helpufl with discomfort. She is going to be going back to [facility] on comfort care. Patients son in law did not want to have us give her the heparin. She is now iv free and pressure dressing applied. Original Note: Patient is lying supine, she is comfortable and son in law in room visiting.
--- NOTE | 2025-05-17 11:49 | PM.PN.IH.1 ---
Subjective Subjective Date Patient Seen: 05/17/25 Time Patient Seen: 07:50 Interval history: Chief complaint: Confusing rigors chills in setting of UTI with sepsis History of present illness: 05/13: 89-year-old female with advanced dementia nonverbal except word salad brought in by ambulance by [facility] with tremors shakes chills Hemogram and metabolic unremarkable urinalysis shows pyuria bacteria Hospital course: 05/14: No changes overnight patient is continually sliding grimacing chewing on her blanket and refractory to any type of attention combative had a long discussion with daughter and son-in-law reviewing all of the imaging laboratory values and elected on treating with Duragesic patch for what may be continuous pain as well as continuing the as needed IV Dilaudid 05/15: The patient is calmer this morning. She is alert and answer simple questions. She is seen with friend/caregiver at bedside. Her case is reviewed with her primary care provider JAYCE Gonzalez by phone. Care was reviewed with her daughter by phone in detail. Hospice was discussed as an option but her daughter refuses this approach at this point. Physical therapy evaluation pending. 05/16: The patient appears comfortable. No complaints. Awaiting placement. 05/17: The patient appears comfortable. No complaints. Awaiting placement. Exam Vital Signs (past 8 hours): Oxygen Delivery Method Room Air Oxygen Flow Rate 0 Narrative Exam Narrative: Elderly female appears comfortable, chewing on bed sheets HEENT moist oropharynx Heart regular Lung clear Abdomen nontender Extremities no edema Neuro: Nonfocal, moves all 4 extremities Objective Labs 05/16/25 07:45 05/16/25 07:45 [facility] Medical History Age-related osteoporosis without current pathological fracture Alzheimer's dementia (~2014) Chicken pox Depression, recurrent Do not resuscitate Essential hypertension Fecal incontinence (~2020) Fractures (~1997) Healthy adult Hearing loss (~1949) History of urinary incontinence (~2007) Insomnia Measles Pessary maintenance Presence of pessary Skin cancer (~2011) Surgical History No pertinent past surgical history Family History Father Pneumonia Brother Cancer Grandfather History of heart disease Social History household members: none Smoking Status: Never smoker alcohol intake: former Assessment & Plan Assessment & Plan narrative: 1. Sepsis secondary to UTI with encephalopathy rigors and tremors in a patient with advanced stage 6 dementia E coli sensitive to ceftriaxone, completed IV ceftriaxone x3 days on 05/15 Patient not participatory with PT. 2. Hypertension, present on admission and active. 3. Dementia with nocturnal agitation, as well as agitation with certain events such as showering, present on admission and active. Note history of adverse reaction to Seroquel Significant decline in quality of life. Family wishes transfer back to memory care facility, declines hospice. DVT prophylaxis: Subcutaneous heparin Code status: Do not resuscitate Team rounds conducted. No changes today, with plan to return to the [facility] memory care unit when able to accommodate her needs. PROFEE Data Capture Clerk Document charge(s): No Charge Codes Subsequent inpatient/observation care: [id number]
[2025-05-17] MEDS: HYDROCODONE/ACET 5/325 TABLET 1 TAB PO (12:08)
--- NOTE | 2025-05-17 13:14 | PM.DS.IH.1 ---
History of Present Illness History of Present Illness Date Patient Seen: 05/17/25 Time Patient Seen: 07:50 Chief complaint: Shaky, Chills Narrative: Chief complaint: Confusing rigors chills in setting of UTI with sepsis History of present illness: 89-year-old female with advanced dementia nonverbal except word salad brought in by ambulance by [facility] with tremors shakes chills Hemogram and metabolic unremarkable new line urinalysis shows pyuria bacteria Review of systems: Patient incapable due to loss of cognition Discharge Providers Provider Date of admission: 05/13/25 17:31 Discharge Date: 05/17/25 Primary care physician: JAYCE Gonzalez Consults: 05/15/25 12:27 Consult to Physical Therapy Evaluate & Treat Comment: Physician Instructions: Evaluate and Treat Discharge provider: Rafael Flanagan MD Summary Hospital Course Discharge Diagnosis: 1. Sepsis secondary to UTI with encephalopathy rigors and tremors in a patient with advanced stage 6 dementia 3. Dementia with nocturnal agitation, as well as agitation with certain events such as showering, present on admission and active. Hospital Course: 05/14: No changes overnight patient is continually sliding grimacing chewing on her blanket and refractory to any type of attention combative had a long discussion with daughter and son-in-law reviewing all of the imaging laboratory values and elected on treating with Duragesic patch for what may be continuous pain as well as continuing the as needed IV Dilaudid 05/15: The patient is calmer this morning. She is alert and answer simple questions. She is seen with friend/caregiver at bedside. Her case is reviewed with her primary care provider JAYCE Gonzalez by phone. Care was reviewed with her daughter by phone in detail. Hospice was discussed as an option but her daughter refuses this approach at this point. Physical therapy evaluation pending. 05/16: The patient appears comfortable. No complaints. Awaiting placement. 05/17: The patient appears comfortable. No complaints. Awaiting placement.The patient's daughter and son-in-law wished to proceed with comfort care measures and hospice consultation. POLST form was signed and updated with the patient's son-in-law prior to discharge (daughter not present due to respiratory illness). Status at Discharge Cognitive/behavioral status at discharge: at baseline, confused Functional status at discharge: bed bound Overall status at discharge: patient is back to baseline Time Spent with Patient Time spent: Greater than 30 minutes Exam Vital Signs (past 8 hours): Oxygen Delivery Method Room Air Oxygen Flow Rate 0 Narrative Exam Narrative: Elderly female appears comfortable, chewing on bed sheets HEENT moist oropharynx Heart regular Lung clear Abdomen nontender Extremities no edema Neuro: Nonfocal, moves all 4 extremities Objective Imaging *: Radiologist's impression: 1. Head CT 05/13/2025: Study highly limited by motion artifact, yet without a mu acute intracranial abnormality identified. 2. Chest/abdomen/pelvis CT 05/13/2025: 1. Small bilateral pleural effusion with adjacent bibasilar infiltrate/atelectasis. No pneumothorax. Moderate centrilobular emphysema. 2. No abnormally enlarged lymph nodes are seen in chest, abdomen or pelvis. 3. Cardiomegaly, no pericardial effusion. Prominent size of main pulmonary artery which can be seen associated with pulmonary vascular hypertension. No thoracic aortic aneurysm. 4. Numerous well-circumscribed hypodensities scattered in liver parenchyma likely represent hepatic cysts. 5. No bowel obstruction or abnormal bowel wall thickening. Colonic diverticulosis without CT evidence of acute diverticulitis. Moderate constipation. No abscess collection. No free fluid or free air. 6. Other chronic findings as above. Labs 05/16/25 07:45 05/16/25 07:45 Labs: Laboratory Results - last 24 hr 05/16/25 07:45 WBC 11.4 H D RBC 4.12 Hgb 12.2 Hct 36.3 MCV 88.1 MCH 29.7 MCHC 33.7 RDW 12.6 Plt Count 372 Neut % (Auto) 84.3 H D Lymph % (Auto) 7.3 L D [place] % (Auto) 6.8 Eos % (Auto) 0.8 L Baso % (Auto) 0.8 Neut # (Auto) 9600 H Lymph # (Auto) 800 L [place] # (Auto) 800 Eos # (Auto) 100 Baso # (Auto) 100 Sodium 134 L Potassium 3.8 Chloride 99 Carbon Dioxide 25 BUN 8 Creatinine 0.43 L Estimated GFR > 60 BUN/Creatinine Ratio 18.6 Glucose 110 H Calcium 8.2 L PFSH Medical History Age-related osteoporosis without current pathological fracture Alzheimer's dementia (~2014) Chicken pox Depression, recurrent Do not resuscitate Essential hypertension Fecal incontinence (~2020) Fractures (~1997) Healthy adult Hearing loss (~1949) History of urinary incontinence (~2007) Insomnia Measles Pessary maintenance Presence of pessary Skin cancer (~2011) Surgical History No pertinent past surgical history Family History Father Pneumonia Brother Cancer Grandfather History of heart disease Social History household members: none Smoking Status: Never smoker alcohol intake: former Discharge Plan Discharge Plan Patient Disposition: Hospice - Home Transfer to: [facility] Discharge orders & Medications Prescriptions: Continued trazodone 50 mg tablet 25 mg PO BEDTIME PRN (Reason: sleep) Qty: 60 0RF Patient Comments: daughter wants to hold if possible Rx Instructions: 1/2 to 1 tablet as needed for sleep multivitamin Tablet 1 tab PO QNOON paroxetine HCl 10 mg tablet 10 mg PO DAILY lorazepam 0.5 mg tablet 0.5 mg PO Q4H PRN (Reason: Anxiety) Qty: 30 0RF Patient Comments: takes prior to shower aspirin [Adult Aspirin Regimen] 81 mg tablet,delayed release (DR/EC) 81 mg PO DAILY loperamide [Anti-Diarrheal (loperamide)] 2 mg capsule 2 mg PO QID PRN (Reason: loose stool) sennosides [Black-Draught Lax-Senna] 8.6 mg tablet 17.2 mg PO BEDTIME PRN (Reason: constipation) magnesium hydroxide [Milk of Magnesia] 400 mg/5 mL suspension 400 mg PO DAILY PRN (Reason: constipation) hydrocodone-acetaminophen 5-325 mg tablet 1 tab PO Q4H PRN (Reason: Pain, Moderate) 7 Days Qty: 20 0RF docusate sodium 100 mg Capsule 100 mg PO DAILY Follow up/Referrals: Shahida Monroe ARNP [Primary Care Provider, Medical] Diet/Activity/Treatments Diet: Regular Visit Report/Discharge Packet Stand Alone Forms: Patient Portal/API Discharge Data Primary Care Provider: Shahida Monroe Quality MIPS - Admit I confirm the patient?s Advance Care Plan is present, Code status is documented, Surrogate decision maker is in patient?s record [If Yes, STOP here]: Yes MIPS - Meds 'Current medications' to include all prescriptions, [id number] products, herbals, cannabis/cannabidiol products, and vitamin/mineral/dietary (nutritional) supplements. I have utilized all available resources to obtain, update, or review the patient?s current medications. [If Yes, STOP here]: Yes MIPS - DC The patient has a history of heart transplant or Left Ventricular Assist Device (LVAD). If yes, STOP here.: No The patient has current or prior documentation of left ventricular ejection fraction (LVEF) less than or equal to 40%, or moderate or severely depressed left ventricular systolic function.: No A. The patient was prescribed or already taking an Angiotensin-Converting Enzyme (CYNTHIA) Inhibitor, or Angiotensin Receptor Clare (ARB).: No B. The patient was prescribed or already taking a beta-clare. [If Yes to Both A & B, STOP here]: No Patient not prescribed/taking CYNTHIA or ARB, no reason given.: No Patient not prescribed/taking beta-clare, no reason given.: No PROFEE Charge Codes Discharge inpatient/observation: [id number]
--- NOTE | 2025-05-17 13:59 | CM.DPNOTE ---
DCP note TECHNICAL EDUCATION TEACHER reviewed EMR per Coni at [facility], pt DPOA now agreeable to Hospice support. TECHNICAL EDUCATION TEACHER met with 2nd DPOA /CLAUDIA In room. reviewed plan. preference for [facility] with hospice today. new CC POLST Signed. copy in scanning folder. original in red chart. per Coni at [facility] can accept back today. has hospital bed. transport for 1430. TECHNICAL EDUCATION TEACHER faxed clinicals/signed med list/new POLST. Per RN pt able to tolerate sitting up in chair. could do wc van. TECHNICAL EDUCATION TEACHER updated RN/CONSULTING APPLICATION ENGINEER on transport times. TECHNICAL EDUCATION TEACHER faxed new referral to [facility]. P: dc today to [facility] memory care, [facility] open pending. CM team will continue to follow as needed for DCP coordination KORY De La O
== END 2025-05-17 14:45 | disposition hospice, home (50) | DRG 689 ==
LOC: ED 17:32 → AC 05-14 06:26
PROVIDERS: Admitting Provider Internal Medicine; Emergency Provider Emergency Medicine; PCP Nurse Practitioner Family; Referring Provider Emergency Medicine; Visit Provider Internal Medicine
DX: N39.0 Urinary tract infection, site not specified (principal); G93.41 Metabolic encephalopathy; F02.C11 Dementia in other diseases classified elsewhere, severe, with agitation; F02.C3 Dementia in other diseases classified elsewhere, severe, with mood disturbance; T43.595A Adverse effect of other antipsychotics and neuroleptics, initial encounter; B96.20 Unspecified Escherichia coli [E. coli] as the cause of diseases classified elsewhere; I10 Essential (primary) hypertension; G30.9 Alzheimer's disease, unspecified; G47.00 Insomnia, unspecified; Z66 Do not resuscitate; Z51.5 Encounter for palliative care
CPT/HCPCS: 36415; 70450; 71250; 74176; 80048; 80053; 81001; 85025; 85610; 85730; 87077; 87086; 87186; 87633; 96361; 96365; 96375; 97163; 99284; J0696; J1644; J1885; J2270